=== PATIENT | male | born 1945 | race Caucasian/White ===

== ENCOUNTER 2019-01-31 12:43 | Emergency (ER) | payer MEDICARE, SELFPAY ==
[2019-01-31] MEDS: Lidocaine 2% Jelly 6 ML SYR (13:00)
[2019-01-31 13:10] VITALS: BP 177/103; PULSE 85; RESP 16; TEMP 36.6; O2SAT 94
[2019-01-31 13:19] LABS: Bilirubin Negative (Negative); Blood Small (Negative); Clarity Clear; Glucose Negative (Negative); Ketones Negative (Negative); Leukocyte Esterase Negative (Negative); Nitrite Negative (Negative); Urobilinogen 0.2 EU/dL (Up TO 0.2); pH 6.5 (5-8)
--- NOTE | 2019-01-31 13:29 | W.ED.GENAD ---
Discharge Plan Disposition Patient Disposition: AGAINST MEDICAL ADVICE Condition: Stable Discharge Details Chief Complaint: Urinary Clinical Impression: Acute urinary retention Primary Care Provider: Reginald Roca ED Provider: Misael Hayes Home Meds and New Rx's Prescriptions: No Action hydrochlorothiazide 25 mg Tablet 25 mg PO DAILY RF: 0 losartan 100 mg Tablet 100 mg PO DAILY RF: 0 Centrum Silver 400-250 mcg Tablet,Chewable 1 tab PO DAILY RF: 0 Discharge Instructions Instructions: Urinary Retention in Men (ED) Additional Instructions: Cerner you have acute urinary retention we placed a Batres here in the emergency department and drained over a liter of urine your kidney function was normal today and you had no signs of infection but unfortunately you are unable to void appropriately after we remove that Batres catheter and we recommended we replace it to protect your kidneys. New refused to have a Batres placed and promised to return should you have increasing pain or fullness this is AGAINST MEDICAL ADVICE as a obstructed bladder can damage your kidneys & cause increased or disability from infection or kidney failure. Please return to the emergency department anytime for increasing pain if you change your mind or other concern and follow-up with urology as discussed this week was a pleasure to treat you today Referrals: Iza Álvarez NP [NURSE PRACTITIONER] - Reginald Roca [Primary Care Provider] - Medical Decision Making 73-year-old male with urinary retention Batres catheter placed in the emergency department over 1 L of urine drained. Patient resting comfortably no further complaints will check UA creatinine and reassess differential diagnosis includes urinary tract infection benign prostatic hypertrophy versus less likely malignancy. Patient UA and BMP unremarkable discussed pros and cons of a voiding trial patient would like an voiding trial will remove Batres see if patient can urinate on his own if not will replace Batres either way patient to follow-up with urology this week. Patient agrees to return for pain fever chills back pain or other concern HPI 73-year-old male past medical history of hypertension tobacco use presents with 1+ weeks of increased urinary frequency at night feeling of incomplete voiding last few days constant urge to urinate and feeling like he could not get any urine out. No shortness of breath chest pain nausea vomiting diarrhea loss of consciousness weight loss or weight gain. Patient nonspecific episode many years ago where he had some trouble urinating and might of had a urinary tract infection no back pain General Date/Time Provider Initiated Documentation: 01/31/19 13:00. Related Data Home Medications Medication Instructions Recorded Confirmed hydrochlorothiazide 25 mg PO DAILY 01/31/19 01/31/19 losartan 100 mg PO DAILY 01/31/19 01/31/19 [id number] acid-lutein [Centrum 1 tab PO DAILY 01/31/19 01/31/19 Silver] Allergies Allergy/AdvReac Type Severity Reaction Status Date / Time bee stings Allergy Uncoded 01/31/19 13:14 General Stated Complaint: Urinary DILIP: 3 Review of Systems Review of Systems All systems reviewed & are unremarkable except as noted in HPI and below PFSH Social History Smoking/Tobacco Use Status: Current every day Tobacco Type: cigarettes Alcohol Intake: never Substance use type: does not use Exam Narrative Exam Narrative: Pulse oximetry reviewed by me and is normal [] Constitutional: Pt is in no acute distress. he is well appearing. he oriented to person, place, and time. Eyes: conjunctivae are normal. Pupils are equal, round, and reactive to light. No scleral icterus. extraocular muscles are intact Ears/Nose/Mouth/Throat: mucus membranes are moist. Musculoskeletal: neck is supple. normal range of motion in all extremities. Cardiovascular: Normal rate and rhythm. No lower extremity edema regular rate and [] Respiratory: effort is normal . pt exhibits no stridor or respiratory distress. Lungs clear to auscultation no wheezing rhonchi or rales. [] GastrointestinaI: abdomen soft, +BS, nontender, -rebound, -guarding. No suprapubic tender Neurological: alert and oriented to person, place, and time. he has normal strength, no tremor. Skin: Skin is warm and dry. he is not diaphoretic. Distal perfusion in tact, warm extremities, cap refill ? 2 seconds. Hem/Lymph/Imm: No cervical LAD, no goiter, no conjunctival pallor Psych: normal mood and affect. behavior is normal Triage and nurse notes reviewed.[] Course Vital Signs Temperature 36.6 C 01/31/19 13:10 Pulse 85 01/31/19 13:10 Respiratory Rate 16 01/31/19 13:10 Blood Pressure 177/103 H 01/31/19 13:10 Pulse Oximetry 94 L 01/31/19 13:10 Temperature 36.6 C 01/31/19 13:10 Pulse 85 01/31/19 13:10 Respiratory Rate 16 01/31/19 13:10 Respiratory Effort Non-Labored 01/31/19 13:10 Blood Pressure 177/103 H 01/31/19 13:10 Blood Pressure Position Sitting 01/31/19 13:10 Pulse Oximetry 94 L 01/31/19 13:10 Pain Level 5 01/31/19 13:17 Lab/Test Results Lab/Test Results: Laboratory Tests Range/Units 01/31/19 13:05 Urine Color (Yellow) Yellow Urine Clarity Clear Urine pH (5-8) 6.5 Ur Specific [place] (1.005-1.025) 1.020 Urine Protein (Negative) mg/dL 30 H Urine Ketones (Negative) mg/dL Negative Urine Blood (Negative) Small H Urine Nitrite (Negative) Negative Urine Bilirubin (Negative) Negative Urine Urobilinogen (Up TO 0.2) EU/dL 0.2 Ur Leukocyte Esterase (Negative) Negative Urine Glucose (Negative) mg/dL Negative
[2019-01-31 13:33] LABS: WBC 0-2 HPF (0-5)
[2019-01-31 13:34] LABS: Bacteria Few HPF (Negative); C & S Indicated? No; Casts Negative LPF (Negative); Crystals Negative HPF (Negative); Epithelial Cells Negative HPF (Negative); Mucus Trace (Negative); Other Cells Rare Renal (Negative); RBC 20-50 (0-2)
[2019-01-31 13:52] LABS: Anion Gap 12.1 mmol/L (3-11); BUN 13 mg/dL (7-18); CO2 24.9 mmol/L (21.0-32.0); CREATININE 1.08 mg/dL (0.70-1.30); Calcium 9.1 mg/dL (8.5-10.1); Chloride 103 mmol/L (98-107); Glucose 104 mg/dL (70-100); Potassium 3.5 mmol/L (3.5-5.1); Sodium 140 mmol/L (136-145)
--- NOTE | 2019-01-31 16:32 | NUR.NOTE ---
patient refused indwelling contreras cathteter patient aware of risks of bladder retention by and reinforced by JESSICA Cardona, patient decided to leave AMA, form signed and patient aware that he can return anytime for care. Nursing Note:
--- NOTE | 2019-02-02 08:23 | PDOC.ERCMPRO ---
Care Management Progress Note 02/01-Dr. Hayes requested assistance with an urology f/u for urinary retention/declined contreras. Referral faxed to Urology this am.
== END 2019-01-31 16:25 | disposition left against medical advice (07) ==
PROVIDERS: Emergency Provider Emergency Medicine; PCP Family Medicine
DX: R33.9 Retention of urine, unspecified (principal); Z53.29 Procedure and treatment not carried out because of patient's decision for other reasons; I10 Essential (primary) hypertension
CPT/HCPCS: 36415; 51702; 80048; 99283; 81003; 81015

== ENCOUNTER 2019-02-02 01:36 | Emergency (ER) | payer MEDICARE, SELFPAY ==
[2019-02-02 01:41] VITALS: BP 171/101; PULSE 98; RESP 20; TEMP 36; O2SAT 99
--- NOTE | 2019-02-02 01:51 | W.ED.GENAD ---
Discharge Plan Disposition Patient Disposition: HOME Discharge Details Chief Complaint: Urinary Clinical Impression: Acute urinary retention, Indwelling Contreras catheter present Primary Care Provider: Reginald Roca ED Provider: Russ Espinoza Home Meds and New Rx's Prescriptions: Continued hydrochlorothiazide 25 mg Tablet 25 mg PO DAILY RF: 0 losartan 100 mg Tablet 100 mg PO DAILY RF: 0 Centrum Silver 400-250 mcg Tablet,Chewable 1 tab PO DAILY RF: 0 Discharge Instructions Instructions: Urinary Retention in Men (ED), Contreras Catheter Placement and Care (ED) Additional Instructions: Please follow-up with urology. Additional diagnostic testing and treatment is necessary. Please contact your primary care physician to arrange follow-up. Return to the ER for any worsening or new concerning symptoms. Referrals: Doron Hope MD [ [facility] STAFF PHYSICIAN] - Reginald Roca [Primary Care Provider] - Medical Decision Making 1:55 --73-year-old male presents for recurrent urinary retention after being seen here 2 days ago for same. Patient did have recent dysuria. Will repeat creatinine to assess for SONAM. Will check UA for infection. Post void residual 999ml. Will place contreras catheter. -- Labs reviewed. Cr normal. Initial precath UA contaminated. Will repeat UA on cath specimen. -- UA with 0-2 WBCs. I do not suspect UTI. Suspect prostate enlargement. Patient will need timely outpatient follow-up with urology. Nursing provided instruction on contreras catheter care. Usual and customary discharge instructions provided. HPI General Mode of arrival: ambulatory. Date/Time Provider Initiated Documentation: 02/02/19 01:40. Limitations to Documentation: no limitations. Information obtained by: patient. HPI Narrative: 73-year-old male presents with chief complaint of urinary retention. Patient notes that over the past 1 month he has had decreasing stream and more recently inability to urinate other than a tiny amount. Patient was seen here in the emergency department on 01/31/2019. He was found to have significant urinary retention and a Contreras catheter was placed. About 1 L of urine was drained. Urinalysis and creatinine were noted to be unremarkable. Contreras catheter was removed and a voiding trial was attempted. Unfortunately the patient was not able to void but desired discharge and refused replacement of catheter. He notes that yesterday he was able to urinate a small amount. Initially had some bloody urination post catheter but this resolved. Today urinary retention is again severe. Patient is here specifically requesting Contreras catheter placement. Related Data Home Medications Medication Instructions Recorded Confirmed Centrum Silver 1 tab PO DAILY 01/31/19 02/02/19 hydrochlorothiazide 25 mg PO DAILY 01/31/19 02/02/19 losartan 100 mg PO DAILY 01/31/19 02/02/19 Allergies Allergy/AdvReac Type Severity Reaction Status Date / Time bee stings Allergy Uncoded 02/02/19 01:41 General Stated Complaint: Urinary DILIP: 3 Review of Systems Constitutional Denies fever(s) Gastrointestinal Denies abdominal pain Genitourinary Reports as per HPI [facility] Medical History BPH (benign prostatic hyperplasia) (Chronic) Hypertension (Chronic) Family History Other Hypertension Social History Smoking/Tobacco Use Status: Current every day Tobacco Type: cigarettes Alcohol Intake: never Substance use type: does not use Do you feel safe at home: Yes Do you feel safe in your relationship?: Yes Exam Const General: cooperative and no acute distress HENMT Mouth: moist mucous membranes Eyes Conjunctivae: normal conjunctivae Sclera: normal sclerae Neck Neck: trachea midline and supple Resp Auscultation: clear to auscultation bilaterally, no rales, no rhonchi and no wheezes Cardio Jugular venous pressure: no JVD Rate: regular rate and not tachycardic Rhythm: regular rhythm GI Inspection: other (suprapubic fullness) Palpation: soft, not firm, no guarding, no masses, not rigid, nontender and No ascites General: No CVA tenderness Penis: normal penis Scrotum: scrotum normal Skin General skin exam: no rashes or lesions noted Neuro General: alert, awake and tone normal Extrem General: no edema Course Vital Signs Temperature 36.0 C L 02/02/19 01:41 Pulse 98 H 02/02/19 01:41 Respiratory Rate 02/02/19 01:41 Blood Pressure 171/101 H 02/02/19 01:41 Pulse Oximetry 99 02/02/19 01:41 Temperature 36.0 C L 02/02/19 01:41 Temperature Source Temporal Artery Scan 02/02/19 01:41 Pulse 98 H 02/02/19 01:41 Respiratory Rate 20 02/02/19 01:41 Respiratory Effort 02/02/19 01:41 Blood Pressure 171/101 H 02/02/19 01:41 Blood Pressure Position Sitting 02/02/19 01:41 Pulse Oximetry 99 02/02/19 01:41 Oxygen Delivery Method Room Air 02/02/19 01:41 Oxygen Flow Rate 0 02/02/19 01:41
[2019-02-02] MEDS: Lidocaine 2% Jelly 11 ML SYR (02:00)
--- NOTE | 2019-02-02 02:00 | ED.GENADUL_ITS ---
Discharge Plan Disposition Patient Disposition: HOME Discharge Details Chief Complaint: Urinary Clinical Impression: Acute urinary retention, Indwelling Contreras catheter present Primary Care Provider: Reginald Roca ED Provider: Russ Espinoza Home Meds and New Rx's Prescriptions: Continued hydrochlorothiazide 25 mg Tablet 25 mg PO DAILY RF: 0 losartan 100 mg Tablet 100 mg PO DAILY RF: 0 Centrum Silver 400-250 mcg Tablet,Chewable 1 tab PO DAILY RF: 0 Discharge Instructions Instructions: Urinary Retention in Men (ED), Contreras Catheter Placement and Care (ED) Additional Instructions: Please follow-up with urology. Additional diagnostic testing and treatment is necessary. Please contact your primary care physician to arrange follow-up. Return to the ER for any worsening or new concerning symptoms. Referrals: Doron Hope MD [ [facility] STAFF PHYSICIAN] - Reginald Roca [Primary Care Provider] - Medical Decision Making 1:55 --73-year-old male presents for recurrent urinary retention after being seen here 2 days ago for same. Patient did have recent dysuria. Will repeat creatinine to assess for SONAM. Will check UA for infection. Post void residual 999ml. Will place contreras catheter. -- Labs reviewed. Cr normal. Initial precath UA contaminated. Will repeat UA on cath specimen. -- UA with 0-2 WBCs. I do not suspect UTI. Suspect prostate enlargement. Patient will need timely outpatient follow-up with urology. Nursing provided instruction on contreras catheter care. Usual and customary discharge instructions provided. HPI General Mode of arrival: ambulatory . Date/Time Provider Initiated Documentation: 02/02/19 01:40 . Limitations to Documentation: no limitations . Information obtained by: patient . HPI Narrative: 73-year-old male presents with chief complaint of urinary retention. Patient notes that over the past 1 month he has had decreasing stream and more recently inability to urinate other than a tiny amount. Patient was seen here in the emergency department on 01/31/2019. He was found to have significant urinary retention and a Contreras catheter was placed. About 1 L of urine was drained. Urinalysis and creatinine were noted to be unremarkable. Contreras catheter was removed and a voiding trial was attempted. Unfortunately the patient was not able to void but desired discharge and refused replacement of catheter. He notes that yesterday he was able to urinate a small amount. Initially had some bloody urination post catheter but this resolved. Today urinary retention is again severe. Patient is here specifically requesting Contreras catheter placement. Related Data Home Medications Medication Instructions Recorded Confirmed Centrum Silver 1 tab PO DAILY 01/31/19 02/02/19 hydrochlorothiazide 25 mg PO DAILY 01/31/19 02/02/19 losartan 100 mg PO DAILY 01/31/19 02/02/19 Allergies Allergy/AdvReac Type Severity Reaction Status Date / Time bee stings Allergy Uncoded 02/02/19 01:41 General Stated Complaint: Urinary DILIP: 3 Review of Systems Constitutional Denies fever(s) Gastrointestinal Denies abdominal pain Genitourinary Reports as per HPI [facility] Medical History BPH (benign prostatic hyperplasia) (Chronic) Hypertension (Chronic) Family History Other Hypertension Social History Smoking/Tobacco Use Status: Current every day Tobacco Type: cigarettes Alcohol Intake: never Substance use type: does not use Do you feel safe at home: Yes Do you feel safe in your relationship?: Yes Exam Const General: cooperative and no acute distress HENMT Mouth: moist mucous membranes Eyes Conjunctivae: normal conjunctivae Sclera: normal sclerae Neck Neck: trachea midline and supple Resp Auscultation: clear to auscultation bilaterally, no rales, no rhonchi and no wheezes Cardio Jugular venous pressure: no JVD Rate: regular rate and not tachycardic Rhythm: regular rhythm GI Inspection: other (suprapubic fullness) Palpation: soft, not firm, no guarding, no masses, not rigid, nontender and No ascites General: No CVA tenderness Penis: normal penis Scrotum: scrotum normal Skin General skin exam: no rashes or lesions noted Neuro General: alert, awake and tone normal Extrem General: no edema Course Vital Signs Temperature 36.0 C L 02/02/19 01:41 Pulse 98 H 02/02/19 01:41 Respiratory Rate 02/02/19 01:41 Blood Pressure 171/101 H 02/02/19 01:41 Pulse Oximetry 99 02/02/19 01:41 Temperature 36.0 C L 02/02/19 01:41 Temperature Source Temporal Artery Scan 02/02/19 01:41 Pulse 98 H 02/02/19 01:41 Respiratory Rate 20 02/02/19 01:41 Respiratory Effort 02/02/19 01:41 Blood Pressure 171/101 H 02/02/19 01:41 Blood Pressure Position Sitting 02/02/19 01:41 Pulse Oximetry 99 02/02/19 01:41 Oxygen Delivery Method Room Air 02/02/19 01:41 Oxygen Flow Rate 0 02/02/19 01:41
[2019-02-02 02:01] LABS: Bilirubin Negative (Negative); Blood Moderate (Negative); Clarity Clear; Glucose Negative (Negative); Ketones Negative (Negative); Leukocyte Esterase Trace (Negative); Nitrite Negative (Negative); Specific Gravity 1.025 (1.005-1.025); Urobilinogen 0.2 EU/dL (Up TO 0.2); pH 5.5 (5-8)
[2019-02-02 02:10] LABS: Bacteria Few HPF (Negative); C & S Indicated? No/Sq. Contamination; Casts Negative LPF (Negative); Crystals Negative HPF (Negative); Epithelial Cells Many HPF (Negative); Mucus Negative (Negative); RBC 20-50 (0-2)
[2019-02-02 02:16] LABS: Anion Gap 11.8 mmol/L (3-11); BUN 22 mg/dL (7-18); CO2 25.2 mmol/L (21.0-32.0); CREATININE 1.19 mg/dL (0.70-1.30); Calcium 9.2 mg/dL (8.5-10.1); Chloride 103 mmol/L (98-107); Glucose 111 mg/dL (70-100); Potassium 3.7 mmol/L (3.5-5.1); Sodium 140 mmol/L (136-145)
[2019-02-02 02:36] LABS: Bilirubin Negative (Negative); Blood Large (Negative); Clarity Clear; Glucose Negative (Negative); Ketones Trace mg/dL (Negative); Leukocyte Esterase Negative (Negative); Nitrite Negative (Negative); Urobilinogen 0.2 EU/dL (Up TO 0.2); pH 5.5 (5-8)
[2019-02-02 02:45] LABS: Bacteria Few HPF (Negative); C & S Indicated? No; Casts Negative LPF (Negative); Crystals Negative HPF (Negative); Epithelial Cells Few HPF (Negative); Mucus Negative (Negative); RBC >50 (0-2); WBC 0-2 HPF (0-5)
[2019-02-02 02:55] VITALS: BP 137/93; PULSE 80; RESP 18; TEMP 36.8; O2SAT 98
--- NOTE | 2019-02-02 08:16 | PDOC.ERCMPRO ---
Care Management Progress Note 02/02-Dr. Espinoza requested assistance with an urology appt within one week for urinary retention/sent home with contreras in place. Referral faxed to urology this am.
== END 2019-02-02 02:57 | disposition home or self-care (01) ==
LOC: ER 02:10
PROVIDERS: Emergency Provider Student in an Organized Health Care Education/Training Program; PCP Family Medicine
DX: R33.8 Other retention of urine (principal); N40.1 Benign prostatic hyperplasia with lower urinary tract symptoms; Z96.0 Presence of urogenital implants; I10 Essential (primary) hypertension
CPT/HCPCS: 36415; 51702; 80048; 99283; 81003; 81015

== ENCOUNTER 2019-02-13 09:16 | Emergency (ER) | payer MEDICARE, SELFPAY ==
[2019-02-13 09:49] VITALS: BP 182/123; PULSE 94; RESP 20; TEMP 36.7; O2SAT 98
[2019-02-13 10:29] LABS: Bilirubin Negative (Negative); Blood Large (Negative); Clarity Clear; Glucose Negative (Negative); Ketones Negative (Negative); Leukocyte Esterase Moderate (Negative); Nitrite Positive (Negative); Urobilinogen 0.2 EU/dL (Up TO 0.2)
--- NOTE | 2019-02-13 10:40 | ED.GENADUL_ITS ---
Discharge Plan Disposition Patient Disposition: HOME Condition: Good Discharge Details Chief Complaint: Urinary Clinical Impression: Acute UTI, Chronic indwelling Batres catheter Primary Care Provider: Reginald Roca ED Provider: Joseluis Lam Home Meds and New Rx's Prescriptions: New cephalexin [Keflex] 500 mg capsule 500 mg PO QID 7 Days Qty: 28 RF: 0 No Action hydrochlorothiazide 25 mg Tablet 25 mg PO DAILY RF: 0 losartan 100 mg Tablet 100 mg PO DAILY RF: 0 Centrum Silver 400-250 mcg Tablet,Chewable 1 tab PO DAILY RF: 0 Discharge Instructions Instructions: Urinary Tract Infection in Men (ED) Additional Instructions: Please take the antibiotic as directed. Please follow-up immediately with Dr. Hope of urology. If you notice any worsening of your symptoms, or any new symptoms such as vomiting, diarrhea, fever, chills, shortness of breath, chest pain, numbness, weakness, or fainting , please return immediately to the emergency department for reevaluation. Please follow up with your primary care provider as soon as possible for reassessment and reevaluation. As always, it was a pleasure participating in your medical care today. Referrals: Reginald Roca [Primary Care Provider] - Medical Decision Making This is a 73-year-old male who presents today for evaluation of brief hematuria. He had a Batres catheter placed for urinary retention and prostate hypertrophy 1 week ago here in the ED. His appointment with Dr. Hope is upcoming. This morning he woke up and noticed blood in his Batres bag. He denies any pain whatsoever. No flank abdominal or pelvic pain. No fever or tachycardia. Otherwise benign exam. Currently there is no blood in his Batres bag whatsoever. We will evaluate for microscopic hematuria versus infection. If there is evidence of infection we will treat. Vital signs are otherwise benign, no clinical evidence of pyelonephritis or clinical urolithiasis. No indication for emergent imaging at this time. 11:05 AM Urinalysis shows evidence of clinical urinary tract infection with positive nitrates, as well as moderate leukoesterase. We will give the patient a prescription for Keflex, recommend continue close follow-up with Dr. Hope. I have extensively reviewed the treatment plan and discharge instructions with the patient and their family. I have addressed all patient concerns at this time. The patient and family was made aware of what symptoms to monitor for that would warrant a return to the emergency department. Discussed the plan with the patient and family, they demonstrate verbal understanding and agreement with our assessment and plan at this time. HPI General Date/Time Provider Initiated Documentation: 02/13/19 09:28 . HPI Narrative: This is a 73-year-old male with a past medical history of enlarged prostate who presents today for evaluation of brief hematuria. Patient states that one week ago he was here for evaluation of urinary retention. Batres was placed at that time. He is on no blood thinners. Since then he has been doing very well however this morning when he woke up he noted blood in his Batres bag. He denies any pelvic urinary penile or flank pain or tenderness. He denies any abdominal pain. He denies any nausea or vomiting or diarrhea. He is not on any blood thinners. After he emptied his Batres bag he is no longer had any more hematuria and his urine has been clear and yellow. He denies any fever or chills. He states he did have a kidney stone years ago, but denies any recent stone. He states that at that time he did have some pain, and states that this is completely unlike his symptoms of being asymptomatic today. Patient denies any other complaints. He does have follow-up with urology shortly. Related Data Home Medications Medication Instructions Recorded Confirmed Centrum Silver 1 tab PO DAILY 01/31/19 02/13/19 hydrochlorothiazide 25 mg PO DAILY 01/31/19 02/13/19 losartan 100 mg PO DAILY 01/31/19 02/13/19 cephalexin [Keflex] 500 mg PO QID 7 Days #28 cap 02/13/19 Previous Rx's Medication Instructions Recorded cephalexin [Keflex] 500 mg PO QID 7 Days #28 cap 02/13/19 Allergies Allergy/AdvReac Type Severity Reaction Status Date / Time bee stings Allergy Uncoded 02/13/19 09:53 General Stated Complaint: Urinary DILIP: 3 Review of Systems Review of Systems All systems reviewed & are unremarkable except as noted in HPI and below PFSH Medical History BPH (benign prostatic hyperplasia) (Chronic) Hypertension (Chronic) Family History Other Hypertension Social History Smoking/Tobacco Use Status: Current every day Tobacco Type: cigarettes Alcohol Intake: never Substance use type: does not use Do you feel safe at home: Yes Do you feel safe in your relationship?: Yes Exam Narrative Exam Narrative: 1.Const: Well-nourished, Well-developed, appearing stated age 2.Eyes: PERRL, no conjunctival injection, and symmetrical lids. 3.ENT: Atraumatic external nose and ears. Moist MM. Neck: Symmetric, trachea midline, No thyromegaly. 4.CVS: +S1/S2, No murmurs or gallops. Peripheral pulses 2+ and equal in all extremities. Brisk capillary refill in all extremities. 5.RESP: Unlabored respiratory effort. Clear to auscultation bilaterally. No wheezes rales or rhonchi 6.GI: Soft, Nontender/Nondistended, No hepatosplenomegaly. No guarding or rebound. No flank tenderness. Batres catheter is in place, no blood. No evidence of urethral bleeding. No evidence of ulcer around the urethral meatus. No other abnormalities. No suprapubic tenderness. 7.MSK: Normocephalic/Atraumatic, Extremities w/o deformity or ttp No cyanosis or clubbing, Normal movement of all extremities 8.Skin: Warm, Dry. No rashes or lesions. 9.Neuro: printed circuit boards pinner II-XII grossly intact. Sensation grossly intact, no focal neurologic deficits. 10.Psych: (AAO) x3. Appropriate mood and affect Course Vital Signs Temperature 36.7 C 02/13/19 09:49 Pulse 94 H 02/13/19 09:49 Respiratory Rate 20 02/13/19 09:49 Blood Pressure 182/123 H 02/13/19 09:49 Pulse Oximetry 98 02/13/19 09:49 Temperature 36.7 C 02/13/19 09:49 Temperature Source Tympanic 02/13/19 09:49 Pulse 94 H 02/13/19 09:49 Respiratory Rate 20 02/13/19 09:49 Blood Pressure 182/123 H 02/13/19 09:49 Blood Pressure Position Sitting 02/13/19 09:49 Pulse Oximetry 98 02/13/19 09:49 Oxygen Delivery Method Room Air 02/13/19 09:49 Oxygen Flow Rate 0 02/13/19 09:49 Pain Level 0 02/13/19 09:49 Lab/Test Results Lab/Test Results: 02/13/19 10:14 Urine - Cath Batres Indwelling Urine Culture - Pending Laboratory Tests Range/Units 02/13/19 10:14 Urine Color (Yellow) Yellow Urine Clarity Clear Urine pH (5-8) 7.0 Ur Specific [place] (1.005-1.025) 1.010 Urine Protein (Negative) mg/dL Negative Urine Ketones (Negative) mg/dL Negative Urine Blood (Negative) Large H Urine Nitrite (Negative) Positive H Urine Bilirubin (Negative) Negative Urine Urobilinogen (Up TO 0.2) EU/dL 0.2 Ur Leukocyte Esterase (Negative) Moderate H Urine Glucose (Negative) mg/dL Negative
[2019-02-13 10:46] LABS: Bacteria Moderate HPF (Negative); Crystals Negative HPF (Negative); Epithelial Cells Negative HPF (Negative); Mucus Negative (Negative)
[2019-02-13 10:47] LABS: C & S Indicated? C&S Done As Ordered; Casts 3-5 Coarse Granular LPF (Negative)
[2019-02-13 11:26] VITALS: BP 141/84; PULSE 93; RESP 18; TEMP 37.1; O2SAT 98
== END 2019-02-13 11:31 | disposition home or self-care (01) ==
PROVIDERS: Emergency Provider Student in an Organized Health Care Education/Training Program; PCP Family Medicine
DX: N39.0 Urinary tract infection, site not specified (principal); R31.9 Hematuria, unspecified; B96.89 Other specified bacterial agents as the cause of diseases classified elsewhere; Z96.0 Presence of urogenital implants; N40.1 Benign prostatic hyperplasia with lower urinary tract symptoms; R33.8 Other retention of urine; I10 Essential (primary) hypertension
CPT/HCPCS: 99283; 81003; 81015; 87086

== ENCOUNTER → 2019-02-25 07:40 | Outpatient (BNVA) | payer MEDICARE, SELFPAY | PROVIDERS: PCP Family Medicine; Visit Provider Urology | DX: R33.9 Retention of urine, unspecified (principal); Z46.6 Encounter for fitting and adjustment of urinary device; I10 Essential (primary) hypertension | CPT/HCPCS: 51702; 99212 ==

== ENCOUNTER → 2019-03-14 07:46 | Outpatient (BNVA) | payer MEDICARE, SELFPAY | PROVIDERS: PCP Family Medicine; Visit Provider Urology | DX: R33.9 Retention of urine, unspecified (principal) | CPT/HCPCS: 51798; 99211; 99212 ==

== ENCOUNTER 2019-03-15 14:35 | Outpatient (CLI) | payer MEDICARE, SELFPAY | END 2019-03-15 14:55 | PROVIDERS: PCP Family Medicine; Visit Provider Urology | DX: R33.9 Retention of urine, unspecified (principal) | CPT/HCPCS: 87077; 87086; 87186 ==

== ENCOUNTER 2019-03-25 14:32 | Emergency (ER) | payer MEDICARE, SELFPAY ==
[2019-03-25] VITALS (67 sets, daily range): BP systolic 99–163; BP diastolic 64–115; PULSE 72–106; RESP 7–29; TEMP 36.6; O2SAT 92–98
--- NOTE | 2019-03-25 15:07 | W.ED.GENAD ---
Discharge Plan Disposition Patient Disposition: [facility] Discharge Details Chief Complaint: Chest Pain Clinical Impression: Acute non-ST elevation myocardial infarction (NSTEMI), Mass of right lung Primary Care Provider: Reginald Roca ED Provider: Russ Espinoza Home Meds and New Rx's Prescriptions: No Action tamsulosin [Flomax] 0.4 mg capsule 0.8 mg PO DAILY Qty: 60 RF: 2 hydrochlorothiazide 25 mg Tablet 25 mg PO DAILY RF: 0 losartan 100 mg Tablet 100 mg PO DAILY RF: 0 Centrum Silver 400-250 mcg Tablet,Chewable 1 tab PO DAILY RF: 0 Discharge Data Discharge Date/Time-TO BE ENTERED AT DEPARTURE: 03/26/19 02:14 Medical Decision Making 1510 --73-year-old male smoker with history of hypertension here with chest tightness that lasted approximately 20 minutes and is now completely resolved. Patient is currently pain-free. Consider ACS. ECG reviewed and interpreted by me: Sinus rhythm 84 bpm, left axis deviation, [address] elevation noted in V2 and less than [address] elevation noted in V1. No old ECG for comparison. Plan to obtain troponin. 8 --initial labs reviewed and nondiagnostic. Chest x-ray interpreted by radiology: 5.8 cm posterior segment right upper lobe mass most consistent with lung cancer. Hyperaerated lungs consistent with mild to moderate COPD. Plan to obtain CT of the chest to rule out pulmonary embolism and better evaluate lung mass. I reviewed results with the patient and discussed treatment plan. Patient refusing CT of the chest at this time. I explained to the patient that he may have life-threatening her lifestyle modifying disease including pulmonary embolism that would go undiagnosed and untreated should we not pursue CT emergently at this time. Patient verbalized understanding of my concern and understanding of risks and notes that he would prefer to not pursue additional diagnostics. Patient has decisional making capacity to refuse care. He is agreeable to staying for delta troponin. 19:05 --delta troponin at 3 hours 1.58. Repeat ECG was reviewed and interpreted by me: Sinus rhythm 80 bpm, continues to have [address] elevation in V2, peaked T waves laterally V3V5 that are slightly more pronounced than prior EKG per Patient reassessed: He continues to have no chest pain. No shortness of breath. Saturating well with no respiratory distress. Results discussed with patient. He is agreeable to hospitalization. Plan to give heparin bolus and drip. Plan to give full dose aspirin and Plavix 300mg. I called [facility] her to return to request transfer to cardiology. Awaiting callback from physician. -- Called [facility] again to request transfer. Still awaiting physician callback. 20:02 -- Spoke with physician at [facility] - unable to accept tonight. 20:22 -- Spoke with Dr. Bray at [facility] -I discussed ED presentation and course including diagnostic treatment results, he will accept patient in transfer. Lab Data Laboratory Tests Range/Units 03/25/19 03/25/19 03/25/19 15:10 15:10 18:00 WBC (4.4-10.8) k/cumm 10.02 RBC (4.50-6.00) m/cumm 4.66 Hgb (13.5-17.5) g/dL 14.5 Hct (40.0-50.0) % 43.1 MCV (80-95) fL 92.5 MCH (27.0-33.0) pg 31.1 MCHC (32.0-36.0) g/dL 33.6 RDW (11.8-14.1) % 14.9 H Plt Count (130-400) x1000/uL 273 MPV (8.0-11.0) fL 10.4 Immature Gran % 0.2 Neutrophils % 64.8 Lymphocytes % 23.6 Monocytes % 6.1 Eosinophils % 4.9 Basophils % 0.4 Absolute Neutrophils (1.2-6.7) k/cumm 6.50 Absolute Lymphocytes (1.2-3.4) k/cumm 2.36 Absolute Monocytes (0.11-0.7) k/cumm 0.61 Absolute Eosinophils (0.0-0.7) k/cumm 0.49 Absolute Basophils (0.0-0.2) k/cumm 0.04 Sodium (136-145) mmol/L 135 L Potassium (3.5-5.1) mmol/L 4.2 Chloride (98-107) mmol/L 101 Carbon Dioxide (21.0-32.0) mmol/L 25.5 Anion Gap (3-11) mmol/L 8.5 BUN (7-18) mg/dL 11 Creatinine (0.70-1.30) mg/dL 1.04 Estimated GFR/1.73 m2 (mL/min/1.73m2) >= 60.00 Glucose (70-100) mg/dL 99 Calcium (8.5-10.1) mg/dL 8.8 Magnesium (1.8-2.4) mg/dL 1.9 Total Bilirubin (0.2-1.0) mg/dL 0.5 AST (15-37) U/L 27 ALT (12-78) U/L 22 Alkaline Phosphatase (46-116) U/L 38 L Troponin I (0.00-0.06) ng/mL < 0.05 1.58 H* Total Protein (6.4-8.2) g/dL 7.8 Albumin (3.4-5.0) g/dL 3.6 HPI General Mode of arrival: ambulatory. Date/Time Provider Initiated Documentation: 03/25/19 14:58. Limitations to Documentation: no limitations. Information obtained by: patient. HPI Narrative: 73-year-old male with history of hypertension here with chief complaint of chest discomfort. Patient notes that around 1:30p he came in from doing light yard work outside and experienced central anterior chest tightness. Tightness was mild to moderate and lasted approximately 20 minutes. No modifiers. No associated diaphoresis or nausea. No shortness of breath. No recent calf pain or lower extremity edema. No prolonged travel or immobility recently. Related Data Home Medications Medication Instructions Recorded Confirmed Centrum Silver 1 tab PO DAILY 01/31/19 03/25/19 hydrochlorothiazide 25 mg PO DAILY 01/31/19 03/25/19 losartan 100 mg PO DAILY 01/31/19 03/25/19 tamsulosin 0.4 mg capsule 0.8 mg PO DAILY #60 cap 02/25/19 03/25/19 Previous Rx's Medication Instructions Recorded tamsulosin 0.4 mg capsule 0.8 mg PO DAILY #60 cap 02/25/19 Allergies Allergy/AdvReac Type Severity Reaction Status Date / Time bee stings Allergy Uncoded 03/25/19 14:53 General Stated Complaint: Chest Pain DILIP: 3 Review of Systems Review of Systems All systems reviewed & are unremarkable except as noted in HPI and below Constitutional Denies body ache(s) Cardiovascular Reports chest pain, Denies chest pain with activity, Denies diaphoresis, Denies syncope, Denies rapid heart rate, Denies leg edema, Denies lightheadedness, Denies radiating jaw, neck or arm pain, Denies palpitations, Denies dyspnea and Denies dyspnea on exertion Respiratory Denies dyspnea and Denies dyspnea on exertion Gastrointestinal Denies abdominal pain Neurologic Denies syncope Endocrine Denies palpitations [facility] Medical History BPH (benign prostatic hyperplasia) (Chronic) Hypertension (Chronic) Family History Other Hypertension Social History Smoking/Tobacco Use Status: Current every day Tobacco Type: cigarettes Alcohol Intake: never Substance use type: does not use Do you feel safe at home: Yes Do you feel safe in your relationship?: Yes Exam Const General: cooperative and no acute distress HENMT Head: normocephalic Mouth: moist mucous membranes Eyes Conjunctivae: normal conjunctivae Sclera: normal sclerae EOM: EOM intact bilaterally Neck Neck: trachea midline and supple Resp Auscultation: clear to auscultation bilaterally, no rales, no rhonchi and no wheezes Cardio Jugular venous pressure: no JVD Rate: regular rate and not tachycardic Rhythm: regular rhythm GI Palpation: soft, not firm, no guarding, no masses, not rigid and nontender Skin General skin exam: no rashes or lesions noted Neuro General: alert, awake and tone normal Extrem General: no calf tenderness and no edema Psych Appearance: grossly normal Mental Status: mental status grossly normal Course Vital Signs Temperature 36.6 C 03/25/19 14:47 Pulse 85 03/25/19 14:47 Respiratory Rate 16 03/25/19 14:47 Pulse Oximetry 98 03/25/19 14:47 Temperature 36.6 C 03/25/19 14:47 Temperature Source Skin 03/25/19 14:47 Pulse 85 03/25/19 14:47 Respiratory Rate 16 03/25/19 14:47 Respiratory Effort Non-Labored 03/25/19 14:51 Blood Pressure Position Sitting 03/25/19 14:47 Pulse Oximetry 98 03/25/19 14:47 Oxygen Delivery Method Room Air 03/25/19 14:47 Oxygen Flow Rate 0 03/25/19 14:47 Critical Care Time Critical Care Time: Yes Total Critical Care Time: 45 Attestation: I spent greater than 45 minutes addressing this patient's immediate life threats
--- NOTE | 2019-03-25 15:12 | DI.RAD_ITS ---
SYMPTOM/DIAGNOSIS: CHEST PAIN PA AND LATERAL CHEST: No previous films available for comparison. The heart is not enlarged. There are diffuse pulmonary interstitial radiodensities which may be acute or chronic. There is a rounded radiodensity lying posteriorly in the right upper lung, the findings are suggestive of a pleural based mass, suspicious for lung carcinoma. No additional intrapulmonary mass seen. Small nodule projected over right lower lung field is most likely to represent nipple shadow but could be intrapulmonary. Question abnormal contour of aortopulmonary window. The possibility of superior mediastinal adenopathy is raised. No pleural effusion is seen. CONCLUSION: Findings suspicious for lung carcinoma, probably right upper lobe. Other etiologies including infectious process not excluded. Chest CT requested to evaluate the mass-like radiodensity and abnormal mediastinal contour.
[2019-03-25 15:26] LABS: Abs Immature Grans 0.02 k/cumm (0.0-0.09); Absolute Basophil Count 0.04 k/cumm (0.0-0.2); Absolute Eosinophil Count 0.49 k/cumm (0.0-0.7); Absolute Lymphocyte Count 2.36 k/cumm (1.2-3.4); Absolute Monocyte Count 0.61 k/cumm (0.11-0.7); Basophils % 0.4; Eosinophils % 4.9; HCT 43.1 % (40.0-50.0); HGB 14.5 g/dL (13.5-17.5); Immature Grans % 0.2; Lymphocytes % 23.6; Mean Corp. HGB Concentration 33.6 g/dL (32.0-36.0); Mean Corpuscular Hemoglobin 31.1 pg (27.0-33.0); Mean Corpuscular Volume 92.5 fL (80-95); Mean Platelet Volume 10.4 fL (8.0-11.0); Monocytes % 6.1; Neutrophils % 64.8; Platelet Count 273 x1000/uL (130-400); RBC 4.66 m/cumm (4.50-6.00); RBC Distribution Width 14.9 % (11.8-14.1); White Blood Cell Count 10.02 k/cumm (4.4-10.8)
[2019-03-25 15:41] LABS: ALT 22 U/L (12-78); AST 27 U/L (15-37); Albumin 3.6 g/dL (3.4-5.0); Alkaline Phosphatase 38 U/L (46-116); BUN 11 mg/dL (7-18); Bilirubin, Total 0.5 mg/dL (0.2-1.0); CO2 25.5 mmol/L (21.0-32.0); CREATININE 1.04 mg/dL (0.70-1.30); Calcium 8.8 mg/dL (8.5-10.1); Glucose 99 mg/dL (70-100); Magnesium 1.9 mg/dL (1.8-2.4); Total Protein 7.8 g/dL (6.4-8.2)
[2019-03-25 15:42] LABS: Troponin I < 0.05 ng/mL (0.00-0.06)
[2019-03-25 16:03] LABS: Anion Gap 8.5 mmol/L (3-11); Chloride 101 mmol/L (98-107); Potassium 4.2 mmol/L (3.5-5.1); Sodium 135 mmol/L (136-145)
--- NOTE | 2019-03-25 16:25 | DI.VRAD_ITS ---
EXAM: XR Chest, 2 Views EXAM DATE/TIME: 03/25/2019 3:13 PM CLINICAL HISTORY: 73 years old, male; Chest pain and chest pressure; Type not specified; Patient HX: Chest pain; Per PT: Outside working, felt tightness in chest and down left arm TECHNIQUE: Imaging protocol: XR of the chest, 2 views. COMPARISON: No relevant prior studies available. FINDINGS: Lungs: 5.8 cm posterior segment right upper lobe mass most consistent with lung cancer. Hyperaerated lungs consistent with mild to moderate COPD . Pleural space: Unremarkable. No pleural effusion. No pneumothorax. Heart/Mediastinum: Unremarkable. No cardiomegaly. Bones/joints: Mild thoracic spondylosis. IMPRESSION: 1. 5.8 cm posterior segment right upper lobe mass most consistent with lung cancer. 2. Hyperaerated lungs consistent with mild to moderate COPD . Dictated and Authenticated by: Rick Caba MD. Ordering:CHRISTINE Solano MD
[2019-03-25 18:58] LABS: Troponin I 1.58 ng/mL (0.00-0.06)
[2019-03-25] MEDS: Aspirin 325 MG TAB PO (19:43)
[2019-03-25] MEDS: Clopidogrel 75 MG TAB PO (19:43)
[2019-03-25] MEDS: Clopidogrel 75 MG TAB 225 MG PO (20:24)
--- NOTE | 2019-03-25 20:59 | NUR.NOTE ---
Nursing Note: patient remain pain free, resting quietly, vital sign stable, NSR on speech lang path, IVF infusing without difficulty.
[2019-03-25 21:02] LABS: Prothrombin Time 10.3 sec (9.3-11.0)
[2019-03-25 21:15] LABS: PTT Activated 87.7 sec (21.0-31.4)
--- NOTE | 2019-03-28 19:11 | NUR.NOTE ---
Nursing Note: Referral was faxed to PCP for follow up. Katie Kwon.
== END 2019-03-26 02:14 | disposition short-term general hospital (02) ==
PROVIDERS: Emergency Provider Student in an Organized Health Care Education/Training Program; PCP Family Medicine
DX: I21.4 Non-ST elevation (NSTEMI) myocardial infarction (principal)
CPT/HCPCS: 36415; 80053; 93005; 99285; 71046; 83735; 84484; 85025; 85610; 85730; 93010

== ENCOUNTER 2019-05-04 10:50 | Outpatient (CLI) | payer MEDICARE, SELFPAY ==
[2019-05-04] MEDS: Omnipaque 350 MG/ML 100 ML BTL IV (13:43)
--- NOTE | 2019-05-04 13:45 | DI.CT_ITS ---
SYMPTOMS/DIAGNOSIS: METASTATIC CARCINOMA, C80.1, LYMPHADENOPATHY, R59.1 CT OF THE NECK: No prior exams are available for comparison. There are innumerable bulky lymph nodes in both supraclavicular regions, measuring on the order of 2 cm in diameter. Numerous lymph nodes are seen in the mediastinum. A mass is partially included in the left upper lobe. There are two mildly enlarged lymph nodes seen bilaterally in the high internal jugular region measurig 1.2cm in greatest dimension. There are a few lymph nodes in the posterior cervical chain measuring less than 5 mm in size. Calcifications are seen at the common carotid bulb. There is no significant stenosis. The parotid, submandibular and thyroid glands are unremarkable. Degenerative changes are seen in the spine. The visualized portions of the sinuses and mastoid air cells appear clear. IMPRESSION: Multiple enlarged bilateral supraclavicular lymph nodes. There are two lymph nodes seen bilaterally in the high internal jugular location measuring 1.2 cm.
== END 2019-05-04 11:10 ==
PROVIDERS: PCP Family Medicine; Visit Provider Family Medicine
DX: R59.1 Generalized enlarged lymph nodes (principal)
CPT/HCPCS: 70491; J3490

== ENCOUNTER → 2019-06-09 13:33 | Outpatient (BNVA) | payer MEDICARE, SELFPAY | PROVIDERS: PCP Family Medicine; Visit Provider Internal Medicine Cardiovascular Disease | DX: I25.10 Atherosclerotic heart disease of native coronary artery without angina pectoris (principal); I10 Essential (primary) hypertension; E78.5 Hyperlipidemia, unspecified; J44.9 Chronic obstructive pulmonary disease, unspecified; F17.210 Nicotine dependence, cigarettes, uncomplicated | CPT/HCPCS: 99204; 99215 ==

== ENCOUNTER 2019-07-15 07:53 | Outpatient (CLI) | payer MEDICARE, SELFPAY ==
[2019-07-15] MEDS: Normal Saline Flush 10 ML SYR IVP (12:35)
[2019-07-15] MEDS: Gadoterate meglumine 20 ML VIAL 19 ML IVP (12:37)
--- NOTE | 2019-07-15 12:45 | DI.MRI_ITS ---
EXAM: MR BRAIN WO/W CLINICAL HISTORY: SMALL CELL LUNG CA, C34.90, ? BRAIN METS, STAGING EXAM. TECHNIQUE: Multiplanar multisequence MRI was performed. COMPARISON: No exams were available for comparison FINDINGS: MR examination of the brain was performed according to the usual protocol with additional post contra st axial and coronal T1 weighted imaging. There is moderate generalized cerebral atrophy. There are areas of abnormal signal in periventricular white matter and subcortical white matter bilaterally co nsistent with microvascular ischemic changes. There appear to be a few tiny lacunar infarcts in the basal ganglia on the right. No other signal abnormality identified in the brain. Diffusion-weighted imaging is within normal limits. Susceptibility weighted imaging shows no evidence of hemorrhage. The orbital and temporal bone structures appear intact as does the pituitary. There is normal flow v oid in the [id number] vasculature. Post contrast examination shows no mass lesion or enhancing lesion. IMPRESSION: No evidence of acute intracranial process. No evidence of metastatic disease.
== END 2019-07-15 08:13 ==
PROVIDERS: PCP Family Medicine; Visit Provider Nurse Practitioner Adult Health
DX: C34.90 Malignant neoplasm of unspecified part of unspecified bronchus or lung (principal); G31.89 Other specified degenerative diseases of nervous system
CPT/HCPCS: 70553

== ENCOUNTER 2019-08-02 12:20 | Outpatient (CLI) | payer MEDICARE, SELFPAY ==
[2019-08-02 13:21] LABS: Abs Immature Grans 0.16 k/cumm (0.0-0.09); HCT 34.7 % (40.0-50.0); HGB 11.9 g/dL (13.5-17.5); Mean Corp. HGB Concentration 34.3 g/dL (32.0-36.0); Mean Corpuscular Hemoglobin 32.5 pg (27.0-33.0); Mean Corpuscular Volume 94.8 fL (80-95); Mean Platelet Volume 9.2 fL (8.0-11.0); Platelet Count 378 x1000/uL (130-400); RBC 3.66 m/cumm (4.50-6.00); RBC Distribution Width 12.7 % (11.8-14.1); White Blood Cell Count 3.44 k/cumm (4.4-10.8)
[2019-08-02 13:30] LABS: ALT 31 U/L (16-63); Albumin 3.8 g/dL (3.4-5.0); Alkaline Phosphatase 41 U/L (46-116); BUN 15 mg/dL (7-18); Bilirubin, Total 0.4 mg/dL (0.2-1.0); CREATININE 1.13 mg/dL (0.70-1.30); Chloride 103 mmol/L (98-107); FREE T4 0.78 ng/dL (0.76-1.46); Glucose 103 mg/dL (70-100); LDH 149 U/L (85-227); Sodium 140 mmol/L (136-145); Total Protein 7.5 g/dL (6.4-8.2)
[2019-08-02 13:45] LABS: Absolute Basophil Count 0.03 k/cumm (0.0-0.2); Absolute Lymphocyte Count 1.93 k/cumm (1.2-3.4); Absolute Monocyte Count 0.52 k/cumm (0.11-0.7); Absolute Neutrophil Count 0.83 k/cumm (1.2-6.7)
[2019-08-02 13:46] LABS: Diff Comment Manual Differential; Polychromasia Present
[2019-08-02 13:50] LABS: AST 45 U/L (15-37)
== END 2019-08-02 12:40 ==
PROVIDERS: PCP Family Medicine; Visit Provider Nurse Practitioner Adult Health
DX: Z79.899 Other long term (current) drug therapy (principal); C34.90 Malignant neoplasm of unspecified part of unspecified bronchus or lung; C79.51 Secondary malignant neoplasm of bone
CPT/HCPCS: 36415; 80053; 83615; 84439; 84443; 85025

== ENCOUNTER 2019-08-08 12:16 | Outpatient (CLI) | payer MEDICARE, SELFPAY ==
[2019-08-08 12:44] LABS: Abs Immature Grans 0.16 k/cumm (0.0-0.09); Absolute Basophil Count 0.05 k/cumm (0.0-0.2); Absolute Eosinophil Count 0.05 k/cumm (0.0-0.7); Absolute Lymphocyte Count 2.14 k/cumm (1.2-3.4); Absolute Monocyte Count 0.79 k/cumm (0.11-0.7); Absolute Neutrophil Count 5.66 k/cumm (1.2-6.7); Basophils % 0.6; Eosinophils % 0.6; HCT 35.6 % (40.0-50.0); HGB 12.2 g/dL (13.5-17.5); Immature Grans % 1.8; Lymphocytes % 24.2; Mean Corp. HGB Concentration 34.3 g/dL (32.0-36.0); Mean Corpuscular Hemoglobin 32.6 pg (27.0-33.0); Mean Corpuscular Volume 95.2 fL (80-95); Monocytes % 8.9; Neutrophils % 63.9; Platelet Count 348 x1000/uL (130-400); RBC 3.74 m/cumm (4.50-6.00); RBC Distribution Width 13.2 % (11.8-14.1); White Blood Cell Count 8.85 k/cumm (4.4-10.8)
[2019-08-08 13:04] LABS: ALT 30 U/L (16-63); AST 20 U/L (15-37); Albumin 3.8 g/dL (3.4-5.0); Alkaline Phosphatase 44 U/L (46-116); Anion Gap 6.5 mmol/L (3-11); BUN 15 mg/dL (7-18); Bilirubin, Total 0.4 mg/dL (0.2-1.0); CO2 29.5 mmol/L (21.0-32.0); CREATININE 1.11 mg/dL (0.70-1.30); Chloride 104 mmol/L (98-107); FREE T4 0.82 ng/dL (0.76-1.46); Glucose 106 mg/dL (70-100); LDH 150 U/L (85-227); Potassium 3.9 mmol/L (3.5-5.1); Sodium 140 mmol/L (136-145); TSH 4.57 uIU/mL (0.36-3.74)
== END 2019-08-08 12:36 ==
PROVIDERS: PCP Family Medicine; Visit Provider Nurse Practitioner Adult Health
DX: C34.90 Malignant neoplasm of unspecified part of unspecified bronchus or lung (principal); C79.51 Secondary malignant neoplasm of bone
CPT/HCPCS: 36415; 80053; 83615; 84439; 84443; 85025

== ENCOUNTER 2019-09-05 01:59 | Outpatient (CLI) | payer MEDICARE, SELFPAY ==
[2019-09-05 09:26] LABS: Abs Immature Grans 0.23 k/cumm (0.0-0.09); Absolute Basophil Count 0.05 k/cumm (0.0-0.2); Absolute Eosinophil Count 0.12 k/cumm (0.0-0.7); Absolute Lymphocyte Count 1.92 k/cumm (1.2-3.4); Absolute Neutrophil Count 4.69 k/cumm (1.2-6.7); Basophils % 0.6; Eosinophils % 1.5; HCT 34.2 % (40.0-50.0); HGB 11.6 g/dL (13.5-17.5); Immature Grans % 2.9; Lymphocytes % 24.6; Mean Corp. HGB Concentration 33.9 g/dL (32.0-36.0); Mean Corpuscular Volume 97.4 fL (80-95); Mean Platelet Volume 9.5 fL (8.0-11.0); Monocytes % 10.2; Neutrophils % 60.2; Platelet Count 330 x1000/uL (130-400); RBC 3.51 m/cumm (4.50-6.00); RBC Distribution Width 14.6 % (11.8-14.1); White Blood Cell Count 7.81 k/cumm (4.4-10.8)
[2019-09-05 10:19] LABS: ALT 52 U/L (16-63); AST 39 U/L (15-37); Albumin 3.7 g/dL (3.4-5.0); Alkaline Phosphatase 46 U/L (46-116); BUN 19 mg/dL (7-18); Bilirubin, Total 0.7 mg/dL (0.2-1.0); CREATININE 1.23 mg/dL (0.70-1.30); Calcium 8.8 mg/dL (8.5-10.1); Chloride 105 mmol/L (98-107); Estimated GFR 57.68 (mL/min/1.73m2); FREE T4 0.88 ng/dL (0.76-1.46); Glucose 83 mg/dL (74-106); LDH 176 U/L (85-227); Potassium 3.9 mmol/L (3.5-5.1); Sodium 144 mmol/L (136-145); TSH 4.55 uIU/mL (0.36-3.74); Total Protein 7.4 g/dL (6.4-8.2)
== END 2019-09-05 02:19 ==
PROVIDERS: PCP Family Medicine; Visit Provider Nurse Practitioner Adult Health
DX: C34.90 Malignant neoplasm of unspecified part of unspecified bronchus or lung (principal); C79.51 Secondary malignant neoplasm of bone; Z79.899 Other long term (current) drug therapy
CPT/HCPCS: 36415; 80053; 83615; 84439; 84443; 85025

== ENCOUNTER 2019-09-26 02:43 | Outpatient (CLI) | payer MEDICARE, SELFPAY ==
[2019-09-26 08:45] LABS: Abs Immature Grans 0.21 k/cumm (0.0-0.09); Absolute Basophil Count 0.03 k/cumm (0.0-0.2); Absolute Lymphocyte Count 1.58 k/cumm (1.2-3.4); Absolute Monocyte Count 1.21 k/cumm (0.11-0.7); Basophils % 0.2; Eosinophils % 0.4; HCT 30.9 % (40.0-50.0); HGB 10.3 g/dL (13.5-17.5); Immature Grans % 1.5 %; Lymphocytes % 11.6; Mean Corp. HGB Concentration 33.3 g/dL (32.0-36.0); Mean Corpuscular Hemoglobin 32.8 pg (27.0-33.0); Mean Corpuscular Volume 98.4 fL (80-95); Mean Platelet Volume 9.8 fL (8.0-11.0); Monocytes % 8.9; Neutrophils % 77.4; Platelet Count 299 x1000/uL (130-400); RBC 3.14 m/cumm (4.50-6.00); RBC Distribution Width 15.2 % (11.8-14.1); White Blood Cell Count 13.63 k/cumm (4.4-10.8)
[2019-09-26 08:46] LABS: Absolute Eosinophil Count 0.05 k/cumm (0.0-0.7); Absolute Neutrophil Count 10.55 k/cumm (1.2-6.7)
[2019-09-26 09:06] LABS: ALT 38 U/L (16-63); AST 29 U/L (15-37); Albumin 3.7 g/dL (3.4-5.0); Alkaline Phosphatase 66 U/L (46-116); Anion Gap 10.4 mmol/L (3-11); BUN 12 mg/dL (7-18); Bilirubin, Total 0.7 mg/dL (0.2-1.0); CO2 28.6 mmol/L (21.0-32.0); CREATININE 1.02 mg/dL (0.70-1.30); Chloride 103 mmol/L (98-107); FREE T4 0.84 ng/dL (0.76-1.46); Glucose 118 mg/dL (74-106); LDH 197 U/L (85-227); Potassium 3.7 mmol/L (3.5-5.1); Sodium 142 mmol/L (136-145); Total Protein 7.7 g/dL (6.4-8.2)
== END 2019-09-26 03:03 ==
PROVIDERS: PCP Family Medicine; Visit Provider Nurse Practitioner Adult Health
DX: C79.51 Secondary malignant neoplasm of bone (principal); C34.90 Malignant neoplasm of unspecified part of unspecified bronchus or lung; Z79.899 Other long term (current) drug therapy
CPT/HCPCS: 36415; 80053; 83615; 84439; 84443; 85025

== ENCOUNTER 2019-11-09 03:19 | Outpatient (CLI) | payer MEDICARE, SELFPAY ==
[2019-11-09 13:33] LABS: ALT 454 U/L (16-63); AST 177 U/L (15-37); Albumin 2.8 g/dL (3.4-5.0); Alkaline Phosphatase 357 U/L (46-116); Anion Gap 12.6 mmol/L (3-11); BUN 23 mg/dL (7-18); CO2 23.4 mmol/L (21.0-32.0); CREATININE 1.31 mg/dL (0.70-1.30); Calcium 7.6 mg/dL (8.5-10.1); Chloride 101 mmol/L (98-107); Estimated GFR 53.64 (mL/min/1.73m2); Glucose 120 mg/dL (74-106); Potassium 3.7 mmol/L (3.5-5.1); Sodium 137 mmol/L (136-145); Total Protein 6.9 g/dL (6.4-8.2)
== END 2019-11-09 03:39 ==
PROVIDERS: PCP Family Medicine; Visit Provider Internal Medicine
DX: K75.4 Autoimmune hepatitis (principal)
CPT/HCPCS: 36415; 80053

== ENCOUNTER 2019-11-17 03:21 | Outpatient (CLI) | payer MEDICARE, SELFPAY ==
[2019-11-17 09:54] LABS: Bilirubin Negative (Negative); Blood Trace-intact (Negative); Clarity Clear (Clear); Glucose Negative (Negative); Ketones Negative (Negative); Leukocyte Esterase Negative (Negative); Nitrite Negative (Negative); Urobilinogen 0.2 EU/dL (Up TO 0.2)
[2019-11-17 11:06] LABS: Bacteria Negative HPF (Negative); C & S Indicated? No; Casts Negative LPF (Negative); Crystals Negative HPF (Negative); Epithelial Cells Negative HPF (Negative); Mucus Negative (Negative); WBC 0-2 HPF (0-5)
== END 2019-11-17 03:41 ==
PROVIDERS: PCP Family Medicine; Visit Provider Internal Medicine Hematology & Oncology
DX: C34.90 Malignant neoplasm of unspecified part of unspecified bronchus or lung (principal)
CPT/HCPCS: 81003; 81015

== ENCOUNTER 2019-11-23 08:47 | Emergency (ER) | payer MEDICARE, SELFPAY ==
[2019-11-23 08:55] VITALS: BP 174/94; PULSE 104; RESP 16; TEMP 36.5; O2SAT 96
--- NOTE | 2019-11-23 09:11 | W.ED.GENAD ---
Discharge Plan Disposition Patient Disposition: HOME Condition: Good Discharge Details Chief Complaint: GenMedical Clinical Impression: Acute urinary retention Primary Care Provider: Reginald Roca ED Provider: Joseluis Lam Home Meds and New Rx's Prescriptions: No Action aspirin [Mary Kay Chewable Aspirin] 81 mg tablet,chewable 81 mg PO DAILY RF: 0 tamsulosin [Flomax] 0.4 mg capsule 0.8 mg PO DAILY Qty: 60 RF: 2 Centrum Silver 400-250 mcg Tablet,Chewable 1 tab PO DAILY RF: 0 Discharge Instructions Instructions: Urinary Retention in Men (ED) Additional Instructions: Please leave your Batres catheter in until you are seen by your urologist Dr. Hope or your primary care provider Dr. ortega. If you are not able to follow-up with them in 1 week please return here for reassessment and potential removal of catheter. If you notice any worsening of your symptoms, or any new symptoms such as vomiting, diarrhea, fever, chills, shortness of breath, chest pain, numbness, weakness, or fainting , please return immediately to the emergency department for reevaluation. Please follow up with your primary care provider as soon as possible for reassessment and reevaluation. As always, it was a pleasure participating in your medical care today. Referrals: Doron Hope MD [ [facility] STAFF PHYSICIAN] - Reginald Roca [Primary Care Provider] - Medical Decision Making 74-year-old male with a past medical history of benign prostatic hyperplasia, previous history of urinary retention presents with symptoms of urinary retention for the last 4 days. Physical exam demonstrates greater than 700 cc of urine in the bladder. Normal genital exam otherwise. Subjective burning when he urinates, but no other signs of fever or chills. No other clinical evidence of significant infection. No flank or CVA tenderness. We will put a straight cath in, with a leg bag. Monitor closely, check for infection and reassess. 9:54 AM Urinalysis has returned, no evidence of infection or concerning abnormality at this time. Patient had 1 L of urine come out. He is feeling much better at this time. He is requesting to go home. Patient will be discharged home with close follow-up. He has seen Dr. Hope in the past for this. We will place a referral with Jayy and his PCP raiser. Symptoms are likely secondary to his chronic prostatic hyperplasia. No other evidence of significant concerning intra-abdominal infection at this time. I have extensively reviewed the treatment plan and discharge instructions with the patient and their family. I have addressed all patient concerns at this time. The patient and family was made aware of what symptoms to monitor for that would warrant a return to the emergency department. Discussed the plan with the patient and family, they demonstrate verbal understanding and agreement with our assessment and plan at this time. HPI General Date/Time Provider Initiated Documentation: 11/23/19 08:56. HPI Narrative: 74-year-old male with a past medical history of prostatic hypertrophy, previous urinary retention presents today for urinary retention. Patient states that for the last 4 days he has had notable difficulty passing urine. He does admit to mild burning when he pees. He denies any blood. He denies any flank pain, he denies any fever or chills. He denies any numbness tingling or weakness. He has no other complaints at this time. He states that this feels similar to his previous episodes of urinary retention that required Batres. Related Data Home Medications Medication Instructions Recorded Confirmed Centrum Silver 1 tab PO DAILY 01/31/19 11/23/19 aspirin 81 mg chewable tablet 81 mg PO DAILY 06/09/19 11/23/19 tamsulosin 0.4 mg capsule 0.8 mg PO DAILY #60 cap 08/25/19 11/23/19 Previous Rx's Medication Instructions Recorded tamsulosin 0.4 mg capsule 0.8 mg PO DAILY #60 cap 08/25/19 Allergies Allergy/AdvReac Type Severity Reaction Status Date / Time bee stings Allergy Uncoded 11/23/19 08:57 General Stated Complaint: GenMedical DILIP: 3 Review of Systems All systems reviewed & are unremarkable except as noted in HPI and below PFSH Social History Smoking/Tobacco Use Status: Current every day Tobacco Type: cigarettes Alcohol Intake: never Substance use type: does not use Do you feel safe at home: Yes Do you feel safe in your relationship?: Yes Exam Narrative Exam Narrative: 1.Const: Well-nourished, Well-developed, appearing stated age 2.Eyes: PERRL, no conjunctival injection, and symmetrical lids. 3.ENT: Atraumatic external nose and ears. Moist MM. Neck: Symmetric, trachea midline, No thyromegaly. 4.CVS: +S1/S2, No murmurs or gallops. Peripheral pulses 2+ and equal in all extremities. Brisk capillary refill in all extremities. 5.RESP: Unlabored respiratory effort. Clear to auscultation bilaterally. No wheezes rales or rhonchi 6.GI: Soft, Nontender/Nondistended, No hepatosplenomegaly. No guarding or rebound. Notably full feeling bladder. Genital exam was performed with nurse at bedside, uncircumcised male, normal cremasteric reflex, no testicular tenderness or enlargement. No penile tenderness. No discharge at the urethra. No flank or CVA tenderness. 7.MSK: Normocephalic/Atraumatic, Extremities w/o deformity or ttp No cyanosis or clubbing, Normal movement of all extremities 8.Skin: Warm, Dry. No rashes or lesions. 9.Neuro: diagnostic sales specialist II-XII grossly intact. Sensation grossly intact, no focal neurologic deficits. 10.Psych: (AAO) x3. Appropriate mood and affect Course Vital Signs Vital signs: Vital Signs Temperature 36.5 C 11/23/19 08:55 Pulse 104 H 11/23/19 08:55 Respiratory Rate 16 11/23/19 08:55 Blood Pressure 174/94 H 11/23/19 08:55 Pulse Oximetry 96 11/23/19 08:55 Temperature 36.5 C 11/23/19 08:55 Temperature Source Axillary 11/23/19 08:55 Pulse 104 H 11/23/19 08:55 Respiratory Rate 16 11/23/19 08:55 Respiratory Effort Non-Labored 11/23/19 08:57 Blood Pressure 174/94 H 11/23/19 08:55 Blood Pressure Position Supine 11/23/19 08:55 Pulse Oximetry 96 11/23/19 08:55 Oxygen Delivery Method Room Air 11/23/19 08:55 Oxygen Flow Rate 0 11/23/19 08:55
[2019-11-23 09:16] LABS: Bilirubin Negative (Negative); Blood Trace-intact (Negative); Clarity Clear (Clear); Glucose Negative (Negative); Ketones Negative (Negative); Leukocyte Esterase Negative (Negative); Nitrite Negative (Negative); Specific Gravity 1.015 (1.005-1.025); Urobilinogen 0.2 EU/dL (Up TO 0.2); pH 6.5 (5-8)
[2019-11-23] MEDS: Lidocaine 2% Jelly 11 ML SYR (09:20)
[2019-11-23 09:53] LABS: Bacteria Rare HPF (Negative); Crystals Negative HPF (Negative); Epithelial Cells Negative HPF (Negative); Mucus Negative (Negative); Other Cells Negative (Negative); WBC 0-2 HPF (0-5)
[2019-11-23 09:54] LABS: C & S Indicated? No; Casts Negative LPF (Negative)
[2019-11-23 09:55] VITALS: BP 157/93; PULSE 98; RESP 16; O2SAT 96
--- NOTE | 2019-11-23 10:10 | NUR.NOTE ---
Referrals faxed [facility] and PCP [facility] Dr. Roca.Nursing Note:
== END 2019-11-23 09:58 | disposition home or self-care (01) ==
PROVIDERS: Emergency Provider Student in an Organized Health Care Education/Training Program; PCP Family Medicine
DX: N40.1 Benign prostatic hyperplasia with lower urinary tract symptoms (principal); R33.8 Other retention of urine
CPT/HCPCS: 36415; 51702; 80053; 99283; 81003; 81015; 83615; 84439; 85025

== ENCOUNTER 2019-11-24 02:55 | Outpatient (CLI) | payer MEDICARE, SELFPAY ==
[2019-11-23 10:22] LABS: Abs Immature Grans 0.04 k/cumm (0.0-0.09); Absolute Eosinophil Count 0.03 k/cumm (0.0-0.7); Absolute Lymphocyte Count 0.45 k/cumm (1.2-3.4); Absolute Monocyte Count 0.14 k/cumm (0.11-0.7); Absolute Neutrophil Count 8.96 k/cumm (1.2-6.7); Eosinophils % 0.3; HCT 32.8 % (40.0-50.0); HGB 10.4 g/dL (13.5-17.5); Immature Grans % 0.4 %; Lymphocytes % 4.7; Mean Corp. HGB Concentration 31.7 g/dL (32.0-36.0); Mean Corpuscular Hemoglobin 32.9 pg (27.0-33.0); Mean Corpuscular Volume 103.8 fL (80-95); Mean Platelet Volume 9.5 fL (8.0-11.0); Monocytes % 1.5; Neutrophils % 93.1; Platelet Count 178 x1000/uL (130-400); RBC 3.16 m/cumm (4.50-6.00); RBC Distribution Width 18.6 % (11.8-14.1); White Blood Cell Count 9.62 k/cumm (4.4-10.8)
[2019-11-23 10:39] LABS: ALT 133 U/L (16-63); AST 49 U/L (15-37); Albumin 3.4 g/dL (3.4-5.0); Alkaline Phosphatase 118 U/L (46-116); Anion Gap 8.5 mmol/L (3-11); BUN 12 mg/dL (7-18); Bilirubin, Total 1.8 mg/dL (0.2-1.0); CO2 24.5 mmol/L (21.0-32.0); CREATININE 1.13 mg/dL (0.70-1.30); Calcium 8.2 mg/dL (8.5-10.1); Chloride 102 mmol/L (98-107); FREE T4 1.14 ng/dL (0.76-1.46); Glucose 122 mg/dL (74-106); LDH 249 U/L (85-227); Potassium 4.2 mmol/L (3.5-5.1); Sodium 135 mmol/L (136-145); Total Protein 7.1 g/dL (6.4-8.2)
== END 2019-11-24 03:15 ==
PROVIDERS: PCP Family Medicine; Visit Provider Internal Medicine Hematology & Oncology
DX: C34.90 Malignant neoplasm of unspecified part of unspecified bronchus or lung (principal); Z79.899 Other long term (current) drug therapy
CPT/HCPCS: 36415; 80053; 83615; 84439; 85025

== ENCOUNTER → 2019-11-25 13:37 | Outpatient (BNVA) | payer MEDICARE, SELFPAY | PROVIDERS: PCP Family Medicine; Referring Provider Family Medicine; Visit Provider Urology | DX: R33.8 Other retention of urine (principal); I10 Essential (primary) hypertension | CPT/HCPCS: 99213 ==

== ENCOUNTER 2019-12-14 11:11 | Outpatient (CLI) | payer MEDICARE, SELFPAY ==
[2019-12-14 12:58] LABS: Abs Immature Grans 0.09 k/cumm (0.0-0.09); Absolute Basophil Count 0.02 k/cumm (0.0-0.2); Absolute Eosinophil Count 0.11 k/cumm (0.0-0.7); Absolute Lymphocyte Count 1.34 k/cumm (1.2-3.4); Absolute Monocyte Count 0.56 k/cumm (0.11-0.7); Absolute Neutrophil Count 6.72 k/cumm (1.2-6.7); Basophils % 0.2; Eosinophils % 1.2; HCT 34.7 % (40.0-50.0); Lymphocytes % 15.2; Mean Corp. HGB Concentration 31.7 g/dL (32.0-36.0); Mean Corpuscular Hemoglobin 31.6 pg (27.0-33.0); Mean Corpuscular Volume 99.7 fL (80-95); Mean Platelet Volume 9.7 fL (8.0-11.0); Monocytes % 6.3; Neutrophils % 76.1; Platelet Count 217 x1000/uL (130-400); RBC 3.48 m/cumm (4.50-6.00); RBC Distribution Width 15.6 % (11.8-14.1); White Blood Cell Count 8.84 k/cumm (4.4-10.8)
[2019-12-14 13:03] LABS: ALT 51 U/L (16-63); AST 42 U/L (15-37); Albumin 3.6 g/dL (3.4-5.0); Alkaline Phosphatase 39 U/L (46-116); Anion Gap 8.1 mmol/L (3-11); BUN 13 mg/dL (7-18); Bilirubin, Total 0.9 mg/dL (0.2-1.0); CO2 26.9 mmol/L (21.0-32.0); CREATININE 1.04 mg/dL (0.70-1.30); Calcium 8.8 mg/dL (8.5-10.1); Chloride 103 mmol/L (98-107); Glucose 95 mg/dL (74-106); LDH 256 U/L (85-227); Potassium 4.1 mmol/L (3.5-5.1); Sodium 138 mmol/L (136-145); Total Protein 7.5 g/dL (6.4-8.2)
== END 2019-12-14 11:31 ==
PROVIDERS: PCP Family Medicine; Visit Provider Internal Medicine Hematology & Oncology
DX: C34.11 Malignant neoplasm of upper lobe, right bronchus or lung (principal)
CPT/HCPCS: 36415; 80053; 83615; 85025

== ENCOUNTER → 2019-12-15 12:06 | Outpatient (BNVA) | payer MEDICARE, SELFPAY | PROVIDERS: PCP Family Medicine; Referring Provider Family Medicine; Visit Provider Urology ==

== ENCOUNTER → 2019-12-16 11:30 | Outpatient (BNVA) | payer MEDICARE, SELFPAY | PROVIDERS: PCP Family Medicine; Referring Provider Family Medicine; Visit Provider Urology | DX: R33.8 Other retention of urine (principal) ==

== ENCOUNTER 2019-12-21 00:19 | Outpatient (CLI) | payer MEDICARE, SELFPAY ==
[2019-12-21 09:19] LABS: Abs Immature Grans 0.06 k/cumm (0.0-0.09); Absolute Basophil Count 0.02 k/cumm (0.0-0.2); Absolute Eosinophil Count 0.09 k/cumm (0.0-0.7); Absolute Lymphocyte Count 0.86 k/cumm (1.2-3.4); Absolute Monocyte Count 0.31 k/cumm (0.11-0.7); Absolute Neutrophil Count 7.74 k/cumm (1.2-6.7); Basophils % 0.2; HCT 31.7 % (40.0-50.0); Immature Grans % 0.7 %; Lymphocytes % 9.5; Mean Corp. HGB Concentration 31.5 g/dL (32.0-36.0); Mean Corpuscular Hemoglobin 31.3 pg (27.0-33.0); Mean Corpuscular Volume 99.1 fL (80-95); Mean Platelet Volume 8.9 fL (8.0-11.0); Monocytes % 3.4; Neutrophils % 85.2; Platelet Count 258 x1000/uL (130-400); RBC Distribution Width 15.4 % (11.8-14.1); White Blood Cell Count 9.08 k/cumm (4.4-10.8)
[2019-12-21 09:31] LABS: ALT 38 U/L (16-63); AST 28 U/L (15-37); Albumin 3.6 g/dL (3.4-5.0); Alkaline Phosphatase 37 U/L (46-116); Anion Gap 9.1 mmol/L (3-11); BUN 15 mg/dL (7-18); Bilirubin, Total 0.6 mg/dL (0.2-1.0); CO2 25.9 mmol/L (21.0-32.0); CREATININE 1.06 mg/dL (0.70-1.30); Chloride 105 mmol/L (98-107); Glucose 115 mg/dL (74-106); LDH 205 U/L (85-227); Potassium 4.2 mmol/L (3.5-5.1); Sodium 140 mmol/L (136-145); Total Protein 7.4 g/dL (6.4-8.2)
== END 2019-12-21 00:39 ==
PROVIDERS: PCP Family Medicine; Visit Provider Internal Medicine Hematology & Oncology
DX: C34.90 Malignant neoplasm of unspecified part of unspecified bronchus or lung (principal)
CPT/HCPCS: 36415; 80053; 83615; 85025

== ENCOUNTER → 2019-12-23 07:55 | Outpatient (BNVA) | payer MEDICARE, SELFPAY | PROVIDERS: PCP Family Medicine; Referring Provider Family Medicine; Visit Provider Urology | DX: R33.8 Other retention of urine (principal); Z46.6 Encounter for fitting and adjustment of urinary device; I10 Essential (primary) hypertension | CPT/HCPCS: 51702; 99213 ==

== ENCOUNTER 2020-01-17 00:18 | Outpatient (CLI) | payer MEDICARE, SELFPAY ==
--- NOTE | 2020-01-17 | DI.CT_ITS ---
EXAM: CT CHEST W CLINICAL HISTORY: SMALL CELL LUNG CA,S/P TREATMENT, ? PROGRESSION COMPARISON: CT CHEST W LEB from 11/01/2019 FINDINGS: CT examination of the chest was performed with a bolus infusion of 70 cc of Omnipaque 350. Compariso n is made with prior study from [facility] of 11/01/2019. Images obtained through the upper abdomen show unremarkable appearance of visualized portions of the kidneys, spleen, and pancreas. Gallbladder and bile ducts are unremarkable. A previously described left lobe hepatic metastasis is again seen and grossly unchanged. There are n umerous new intrahepatic masses, the largest in the right lobe measuring about 42 millimeters in diam eter. Retrocrural lymph nodes are again noted, these are waxing and waning in size, a nodule left retrocrur al previously measured 9 millimeters and now measures may measures 16 millimeters in diameter. Previously noted right adrenal metaphysis, 24 millimeters, now measures 20 millimeters. New left adrenal nodule, 25 millimeters in diameter. An additional approximately 15 millimeter in di ameter left adrenal nodule is also noted. Mediastinal adenopathy described on prior examination shows waxing and waning of numerous metastatic nodules. Subcarinal nodule has increased from 23 millimeters to 26 millimeters. Pretracheal nodules previously 21 millimeters, now 19 millimeters. Superior mediastinal nodule has increased from 9 mil limeters to 15 millimeters. There is new left axillary adenopathy with a 17 millimeter lymph node with abnormal morphology, and 1 1 millimeter normal appearing lymph node was previously present. Slight interval increase in prominence of numerous nodes in the lower cervical region. No evidence of pulmonary embolic disease. Ascending thoracic aortic ectasia noted at 42 millimeters. No other significant thoracic aortic abnormality. Tracheobronchial tree appears intact. The dominant right upper lobe lung lesion is again noted, maximal oblique diameter now 36 millimeters , compared to maximal oblique diameter 39 millimeters on prior study. No new intrapulmonary mass remigio ntified. No pleural effusion. IMPRESSION: 1. Multiple new hepatic metastases in a patient with known lung carcinoma. 2. Waxing and waning size of multiple retro crural and mediastinal lymph nodes. 3. New left adrenal metastasis, slight interval decrease in size of previously noted right adrenal le dalton. 4. Slight interval decrease in size of right upper lobe pulmonary mass. 5. New left axillary lymph node metastasis.
[2020-01-17 12:25] LABS: Abs Immature Grans 0.03 k/cumm (0.0-0.09); Absolute Basophil Count 0.03 k/cumm (0.0-0.2); Absolute Eosinophil Count 0.27 k/cumm (0.0-0.7); Absolute Lymphocyte Count 1.42 k/cumm (1.2-3.4); Absolute Monocyte Count 0.54 k/cumm (0.11-0.7); Absolute Neutrophil Count 6.36 k/cumm (1.2-6.7); Basophils % 0.3; Eosinophils % 3.1; HCT 29.8 % (40.0-50.0); HGB 9.1 g/dL (13.5-17.5); Immature Grans % 0.3 %; Lymphocytes % 16.4; Mean Corp. HGB Concentration 30.5 g/dL (32.0-36.0); Mean Corpuscular Volume 91.7 fL (80-95); Mean Platelet Volume 9.8 fL (8.0-11.0); Monocytes % 6.2; Neutrophils % 73.7; Platelet Count 332 x1000/uL (130-400); RBC 3.25 m/cumm (4.50-6.00); RBC Distribution Width 15.6 % (11.8-14.1); White Blood Cell Count 8.65 k/cumm (4.4-10.8)
[2020-01-17 12:41] LABS: ALT 25 U/L (16-63); AST 34 U/L (15-37); Albumin 3.7 g/dL (3.4-5.0); Alkaline Phosphatase 32 U/L (46-116); Anion Gap 8.6 mmol/L (3-11); BUN 10 mg/dL (7-18); Bilirubin, Total 0.4 mg/dL (0.2-1.0); CO2 26.4 mmol/L (21.0-32.0); Calcium 8.7 mg/dL (8.5-10.1); Chloride 102 mmol/L (98-107); Estimated GFR 59.35 (mL/min/1.73m2); Glucose 100 mg/dL (74-106); LDH 232 U/L (85-227); Potassium 3.9 mmol/L (3.5-5.1); Sodium 137 mmol/L (136-145); Total Protein 7.4 g/dL (6.4-8.2)
[2020-01-17 12:51] LABS: Diff Comment Diff Reviewed; RBC Morphology Normal
[2020-01-17] MEDS: Omnipaque 350 MG/ML 100 ML BTL 70 ML IJ (12:58)
[2020-01-17] MEDS: Normal Saline - Diluent 50 ML VIAL IV (12:59)
== END 2020-01-17 00:38 ==
PROVIDERS: PCP Family Medicine; Visit Provider Internal Medicine Hematology & Oncology
DX: C34.11 Malignant neoplasm of upper lobe, right bronchus or lung (principal); C79.51 Secondary malignant neoplasm of bone; C78.7 Secondary malignant neoplasm of liver and intrahepatic bile duct; C79.72 Secondary malignant neoplasm of left adrenal gland; C77.3 Secondary and unspecified malignant neoplasm of axilla and upper limb lymph nodes; R59.0 Localized enlarged lymph nodes
CPT/HCPCS: 80053; 71260; 83615; 85025; J3490

== ENCOUNTER → 2020-01-24 08:43 | Outpatient (BNVA) | payer MEDICARE, SELFPAY | PROVIDERS: PCP Family Medicine; Referring Provider Family Medicine; Visit Provider Nurse Practitioner Gerontology | DX: R33.8 Other retention of urine (principal); I10 Essential (primary) hypertension; Z46.6 Encounter for fitting and adjustment of urinary device | CPT/HCPCS: 51702; 99212 ==

== ENCOUNTER 2020-02-06 01:23 | Outpatient (RCR) | payer MEDICARE, SELFPAY ==
[2020-01-30] MEDS: Normal Saline Flush 10 ML SYR IVP (07:25)
[2020-01-30 07:50] LABS: Abs Immature Grans 0.03 k/cumm (0.0-0.09); Absolute Basophil Count 0.03 k/cumm (0.0-0.2); Absolute Eosinophil Count 0.35 k/cumm (0.0-0.7); Absolute Lymphocyte Count 1.05 k/cumm (1.2-3.4); Absolute Monocyte Count 0.42 k/cumm (0.11-0.7); Absolute Neutrophil Count 4.75 k/cumm (1.2-6.7); Basophils % 0.5; Eosinophils % 5.3; HCT 27.9 % (40.0-50.0); HGB 8.6 g/dL (13.5-17.5); Immature Grans % 0.5 %; Lymphocytes % 15.8; Mean Corp. HGB Concentration 30.8 g/dL (32.0-36.0); Mean Corpuscular Hemoglobin 27.2 pg (27.0-33.0); Mean Corpuscular Volume 88.3 fL (80-95); Monocytes % 6.3; Neutrophils % 71.6; Platelet Count 302 x1000/uL (130-400); RBC 3.16 m/cumm (4.50-6.00); RBC Distribution Width 15.9 % (11.8-14.1); White Blood Cell Count 6.63 k/cumm (4.4-10.8)
[2020-01-30 08:02] LABS: ALT 21 U/L (16-63); AST 60 U/L (15-37); Albumin 3.4 g/dL (3.4-5.0); Alkaline Phosphatase 31 U/L (46-116); Anion Gap 8.4 mmol/L (3-11); BUN 9 mg/dL (7-18); Bilirubin, Total 0.5 mg/dL (0.2-1.0); CO2 23.6 mmol/L (21.0-32.0); CREATININE 1.02 mg/dL (0.70-1.30); Calcium 8.8 mg/dL (8.5-10.1); Chloride 103 mmol/L (98-107); Glucose 108 mg/dL (74-106); LDH 519 U/L (85-227); Potassium 5.1 mmol/L (3.5-5.1); Sodium 135 mmol/L (136-145); Total Protein 7.5 g/dL (6.4-8.2)
[2020-02-06] MEDS: Normal Saline Flush 10 ML SYR IVP (10:52)
[2020-02-06 10:53] LABS: Abs Immature Grans 0.03 k/cumm (0.0-0.09); Absolute Basophil Count 0.02 k/cumm (0.0-0.2); Absolute Eosinophil Count 0.28 k/cumm (0.0-0.7); Absolute Lymphocyte Count 1.14 k/cumm (1.2-3.4); Absolute Monocyte Count 0.32 k/cumm (0.11-0.7); Absolute Neutrophil Count 3.61 k/cumm (1.2-6.7); Basophils % 0.4; Eosinophils % 5.2; HCT 28.6 % (40.0-50.0); HGB 8.8 g/dL (13.5-17.5); Immature Grans % 0.6 %; Lymphocytes % 21.1; Mean Corp. HGB Concentration 30.8 g/dL (32.0-36.0); Mean Corpuscular Hemoglobin 26.8 pg (27.0-33.0); Mean Corpuscular Volume 87.2 fL (80-95); Mean Platelet Volume 9.8 fL (8.0-11.0); Monocytes % 5.9; Neutrophils % 66.8; Platelet Count 350 x1000/uL (130-400); RBC 3.28 m/cumm (4.50-6.00); RBC Distribution Width 16.4 % (11.8-14.1)
[2020-02-06 11:06] LABS: ALT 21 U/L (16-63); AST 27 U/L (15-37); Albumin 3.6 g/dL (3.4-5.0); Alkaline Phosphatase 40 U/L (46-116); Anion Gap 10.6 mmol/L (3-11); BUN 10 mg/dL (7-18); Bilirubin, Total 0.5 mg/dL (0.2-1.0); CO2 23.4 mmol/L (21.0-32.0); CREATININE 1.16 mg/dL (0.70-1.30); Calcium 8.8 mg/dL (8.5-10.1); Chloride 104 mmol/L (98-107); Glucose 101 mg/dL (74-106); Sodium 138 mmol/L (136-145); Total Protein 7.6 g/dL (6.4-8.2)
== END 2020-02-19 23:59 | disposition home or self-care (01) ==
LOC: INF 01:23
PROVIDERS: PCP Family Medicine; Visit Provider Internal Medicine Hematology & Oncology
DX: Z79.899 Other long term (current) drug therapy (principal)
CPT/HCPCS: 36415; 80053; 83615; 85025

== ENCOUNTER → 2020-02-16 08:40 | Outpatient (BNVA) | payer MEDICARE, SELFPAY | PROVIDERS: PCP Family Medicine; Referring Provider Family Medicine; Visit Provider Nurse Practitioner Gerontology | DX: R33.9 Retention of urine, unspecified (principal); N39.0 Urinary tract infection, site not specified; B96.20 Unspecified Escherichia coli [E. coli] as the cause of diseases classified elsewhere; Z46.6 Encounter for fitting and adjustment of urinary device; I25.10 Atherosclerotic heart disease of native coronary artery without angina pectoris; I10 Essential (primary) hypertension | CPT/HCPCS: 51702; 81003; 99213; 99215 ==

== ENCOUNTER → 2020-02-16 09:44 | Outpatient (BNVA) | payer MEDICARE, SELFPAY | PROVIDERS: PCP Family Medicine; Referring Provider Family Medicine; Visit Provider Internal Medicine Cardiovascular Disease | DX: I25.10 Atherosclerotic heart disease of native coronary artery without angina pectoris; I10 Essential (primary) hypertension | CPT/HCPCS: 99204; 99215 ==

== ENCOUNTER 2020-02-16 11:04 | Outpatient (REF) | payer MEDICARE, SELFPAY | END 2020-02-16 11:24 | LOC: LBN 11:04 | PROVIDERS: PCP Family Medicine; Visit Provider Nurse Practitioner Gerontology | DX: R33.9 Retention of urine, unspecified (principal) | CPT/HCPCS: 87077; 87086; 87186 ==

== ENCOUNTER 2020-03-02 02:14 | Outpatient (CLI) | payer MEDICARE, SELFPAY ==
[2020-03-02 09:31] LABS: Abs Immature Grans 0.01 k/cumm (0.0-0.09); Absolute Basophil Count 0.01 k/cumm (0.0-0.2); Absolute Lymphocyte Count 1.25 k/cumm (1.2-3.4); Absolute Monocyte Count 0.07 k/cumm (0.11-0.7); Absolute Neutrophil Count 4.01 k/cumm (1.2-6.7); Basophils % 0.2; Eosinophils % 5.3; HCT 27.6 % (40.0-50.0); HGB 8.3 g/dL (13.5-17.5); Immature Grans % 0.2 %; Lymphocytes % 22.1; Mean Corp. HGB Concentration 30.1 g/dL (32.0-36.0); Mean Corpuscular Hemoglobin 25.3 pg (27.0-33.0); Mean Corpuscular Volume 84.1 fL (80-95); Mean Platelet Volume 9.8 fL (8.0-11.0); Monocytes % 1.2; Platelet Count 328 x1000/uL (130-400); RBC 3.28 m/cumm (4.50-6.00); White Blood Cell Count 5.65 k/cumm (4.4-10.8)
[2020-03-02 09:44] LABS: Diff Comment RBC Morph Reviewed
[2020-03-02 09:45] LABS: Anisocytosis 1+; Basophilic Stippling Present; Hypochromasia 2+; Microcytosis 2+; Poikilocytes 2+
--- NOTE | 2020-03-02 10:00 | DI.CT_ITS ---
EXAM: CT CHEST/ABD/PEL W CLINICAL HISTORY: SMALL CELL LUNG CA,C34.90,ANEMIA,D64.9 TECHNIQUE: Imaging Protocol: Axial computed tomography images with coronal and sagittal reformatted images were created and reviewed CONTRAST MATERIAL: Intravenous: Omnipaque 350 Contrast volume:100 mL Oral: Yes COMPARISON: CT CT CHEST W LEB from 11/01/[address] CHEST W from 01/17/[address] CHEST W from 01/17/2020 FINDINGS: CHEST: Tracheobronchial tree: Patent where visualized. Mediastinum and Edwina: Mediastinal and hilar adenopathy. Interval decrease in size of the largest lymp h node in the subcarinal region. It measures 0.2 x 2 cm compared with 0.4 x 2.1 cm. Pulmonary parenchyma: Centrilobular emphysema. The pulmonary metastasis in the right upper lobe measu res 3.2 x 2.9 cm compared with 3.4 x 2.9 cm. No new pulmonary masses. Areas of consolidation. Pleura: No effusion or pneumothorax. Heart: The heart is not dilated. Marked coronary artery calcification. No significant pericardial eff usion. Aorta: Unchanged thoracic aorta. Atherosclerosis. Lymph nodes: Please see above. Bones:Sclerotic metastases. ABDOMEN: Liver: There are again seen multiple hepatic metastases. The largest metastasis is in the right lobe and measures 3.2 x 2.9 cm. This compares with 3.7 x 3.5 cm. A lesion in the posterior segment of the right lobe of the liver measures 2 x 2 cm compared to 2.3 x 2 cm. Portal, Superior Mesenteric, and Splenic Veins: Unremarkable. Gallbladder and Biliary Tract: No radiodense calculus or dilation. Pancreas: Normal density, no abnormal calcifications or inflammatory process. Spleen: The round hypodense lesion in the superior aspect of the spleen has shown interval increase i n size measuring 1.1 cm in diameter compared to 0.6 cm in diameter. This was not present on the CT sc an of the chest from 11/01/2019. Adrenals: The right adrenal nodule measures 1.5 x 1.5 cm compared with 1.7 x 1.9 cm. The left adrenal nodule measures 2.1 x 3.2 cm compared with 1.5 x 2.6 cm. Kidneys: Normal size, contour and axis. No radiodense stones or obstructive uropathy. There are tiny hypodensities in the kidneys bilaterally. These are too small for further characterization but likely reflect small cysts. Abdominal Aorta: Abdominal portion non-dilated. Atherosclerosis. Bowel: No obstruction or bowel wall thickening. Appendix is unremarkable. Colonic diverticulosis but no evidence of acute diverticulitis. Peritoneal Cavity: No ascites, collection or mesenteric inflammatory response. Lymph Nodes: There are enlarged retroperitoneal lymph nodes present. The largest are in the left taran c chain. The largest measures 5.8 x 2.5 cm. Lymph nodes are seen in the left periaortic region. Large st collection measures 2.4 x 2.4 x 4.6 cm. There is a 2.1 x 2.4 cm aortic caval lymph node. There is a 2.3 x 1.7 right iliac chain lymph node. Bones: Sclerotic metastases are seen in the bones particularly the left iliac bone. No compression fr actures are seen in the spine. Soft Tissues: There is a fat containing umbilical hernia. PELVIS: Bladder: There is diffuse thickening of the wall of the urinary bladder. This likely is secondary to chronic bladder outlet obstruction. A Batres catheter is in place. Reproductive Organs: Prostate gland is markedly enlarged measuring 9.2 cm AP by 8.5 cm transverse by 10.4 cm craniocaudad. The mass contains cystic and solid components with internal calcifications. The re appears to be invasion of the rectum posteriorly. In addition, pelvic sidewall involvement cannot be excluded. Lymph Nodes: Please see the above discussion for complete details. Bones: Please see the above discussion. IMPRESSION: 1. Markedly enlarged prostate gland suspicious for carcinoma. Findings suggestive if invasion of the rectum posteriorly and probable sidewall involvement. 2. Pelvic and sidewall adenopathy. 3. Osseous sclerotic metastases. 4. Hepatic metastases which some have shown decrease in size. 5. Increasing splenic nodule suspicious for metastasis. 6. Adrenal metastasis. Increased size of left adrenal metastasis. 7. Interval decrease in size of the largest subcarinal lymph node. 8. Right upper lobe pulmonary nodule without significant change. RADIATION DOSE DELIVERED: 1,706.51mGy.cm Total DLP DATA REPOSITORY: All CT scans at this facility are submitted to the National Radiology Data Registry (NRDR) Dose Index Registry (DIR) with the [employer] (ACR). RADIATION OPTIMIZATION: All CT scans at this facility use at least one of these dose optimization te chniques: automated exposure control; mA and/or kV adjustment per patient size (includes targeted exa ms where dose is matched to clinical indication); or iterative reconstruction.
[2020-03-02] MEDS: Omnipaque 350 MG/ML 100 ML BTL IJ (10:06)
[2020-03-02] MEDS: Normal Saline - Diluent 50 ML VIAL IV (10:07)
[2020-03-02] MEDS: Omnipaque 350 MG/ML 50 ML BTL IJ (10:08)
[2020-03-02] MEDS: Breeza Beverage 473 ML BTL PO (10:08)
[2020-03-02 10:17] LABS: ALT 24 U/L (16-63); AST 31 U/L (15-37); Albumin 3.7 g/dL (3.4-5.0); Alkaline Phosphatase 31 U/L (46-116); Anion Gap 8.4 mmol/L (3-11); BUN 10 mg/dL (7-18); Bilirubin, Total 0.8 mg/dL (0.2-1.0); CO2 26.6 mmol/L (21.0-32.0); CREATININE 1.05 mg/dL (0.70-1.30); Calcium 8.7 mg/dL (8.5-10.1); Chloride 103 mmol/L (98-107); Ferritin 87 ng/mL (26-388); Glucose 101 mg/dL (74-106); Sodium 138 mmol/L (136-145); TSH 2.54 uIU/mL (0.36-3.74); Total Protein 7.3 g/dL (6.4-8.2); Vitamin B12 452 pg/mL (193-986)
[2020-03-02 10:30] LABS: LDH 186 U/L (85-227); PHOSPHORUS 3.7 mg/dL (2.6-4.7)
== END 2020-03-02 02:34 ==
PROVIDERS: PCP Family Medicine; Visit Provider Internal Medicine Hematology & Oncology
DX: C34.11 Malignant neoplasm of upper lobe, right bronchus or lung (principal); C78.7 Secondary malignant neoplasm of liver and intrahepatic bile duct; C79.72 Secondary malignant neoplasm of left adrenal gland; C79.51 Secondary malignant neoplasm of bone; D73.89 Other diseases of spleen; D64.9 Anemia, unspecified; R59.0 Localized enlarged lymph nodes; J43.8 Other emphysema; N32.89 Other specified disorders of bladder; R91.1 Solitary pulmonary nodule; N42.89 Other specified disorders of prostate; Z79.899 Other long term (current) drug therapy
CPT/HCPCS: 74177; 80053; 71260; 82607; 82728; 83615; 84100; 84443; 85025; J3490; Q9967

== ENCOUNTER 2020-03-19 01:51 | Outpatient (RCR) | payer MEDICARE, SELFPAY ==
[2020-02-20 07:30] LABS: Abs Immature Grans 0.02 k/cumm (0.0-0.09); Absolute Basophil Count 0.04 k/cumm (0.0-0.2); Absolute Eosinophil Count 0.29 k/cumm (0.0-0.7); Absolute Lymphocyte Count 1.09 k/cumm (1.2-3.4); Absolute Neutrophil Count 3.49 k/cumm (1.2-6.7); Basophils % 0.7; Eosinophils % 5.3; HCT 29.6 % (40.0-50.0); HGB 9.1 g/dL (13.5-17.5); Immature Grans % 0.4 %; Lymphocytes % 20.1; Mean Corp. HGB Concentration 30.7 g/dL (32.0-36.0); Mean Corpuscular Hemoglobin 25.9 pg (27.0-33.0); Mean Corpuscular Volume 84.1 fL (80-95); Mean Platelet Volume 9.1 fL (8.0-11.0); Monocytes % 9.2; Neutrophils % 64.3; Platelet Count 385 x1000/uL (130-400); RBC 3.52 m/cumm (4.50-6.00); RBC Distribution Width 17.3 % (11.8-14.1); White Blood Cell Count 5.43 k/cumm (4.4-10.8)
[2020-02-20 07:42] LABS: ALT 21 U/L (16-63); AST 29 U/L (15-37); Albumin 3.7 g/dL (3.4-5.0); Alkaline Phosphatase 40 U/L (46-116); Anion Gap 9.7 mmol/L (3-11); BUN 8 mg/dL (7-18); Bilirubin, Total 0.4 mg/dL (0.2-1.0); CO2 23.3 mmol/L (21.0-32.0); CREATININE 1.17 mg/dL (0.70-1.30); Calcium 8.7 mg/dL (8.5-10.1); Chloride 102 mmol/L (98-107); Glucose 107 mg/dL (74-106); LDH 208 U/L (85-227); Sodium 135 mmol/L (136-145); Total Protein 7.6 g/dL (6.4-8.2)
[2020-02-20] MEDS: Normal Saline Flush 10 ML SYR IVP (07:52)
[2020-02-20 08:03] LABS: Anisocytosis 2+; Basophilic Stippling Present; Diff Comment RBC Morph Reviewed; Hypochromasia 1+
[2020-02-20 08:04] LABS: Microcytosis 1+; Polychromasia Present
[2020-02-20 08:05] LABS: Poikilocytes 2+
[2020-02-27] MEDS: Normal Saline Flush 10 ML SYR IVP (07:30)
[2020-02-27 07:50] LABS: Abs Immature Grans 0.06 k/cumm (0.0-0.09); Absolute Basophil Count 0.03 k/cumm (0.0-0.2); Absolute Eosinophil Count 0.24 k/cumm (0.0-0.7); Absolute Lymphocyte Count 1.47 k/cumm (1.2-3.4); Absolute Monocyte Count 0.32 k/cumm (0.11-0.7); Absolute Neutrophil Count 2.63 k/cumm (1.2-6.7); Basophils % 0.6; Eosinophils % 5.1; HCT 28.5 % (40.0-50.0); HGB 8.5 g/dL (13.5-17.5); Immature Grans % 1.3 %; Lymphocytes % 30.9; Mean Corp. HGB Concentration 29.8 g/dL (32.0-36.0); Mean Corpuscular Hemoglobin 25.1 pg (27.0-33.0); Mean Corpuscular Volume 84.3 fL (80-95); Mean Platelet Volume 10.3 fL (8.0-11.0); Monocytes % 6.7; Neutrophils % 55.4; Platelet Count 356 x1000/uL (130-400); RBC 3.38 m/cumm (4.50-6.00); RBC Distribution Width 17.5 % (11.8-14.1); White Blood Cell Count 4.75 k/cumm (4.4-10.8)
[2020-02-27 08:02] LABS: ALT 20 U/L (16-63); AST 33 U/L (15-37); Albumin 3.6 g/dL (3.4-5.0); Alkaline Phosphatase 36 U/L (46-116); Anion Gap 11.6 mmol/L (3-11); BUN 7 mg/dL (7-18); Bilirubin, Total 0.4 mg/dL (0.2-1.0); CO2 22.4 mmol/L (21.0-32.0); CREATININE 0.93 mg/dL (0.70-1.30); Calcium 8.6 mg/dL (8.5-10.1); Chloride 107 mmol/L (98-107); Glucose 133 mg/dL (74-106); Potassium 3.5 mmol/L (3.5-5.1); Sodium 141 mmol/L (136-145); Total Protein 7.4 g/dL (6.4-8.2)
[2020-03-12 07:45] LABS: Abs Immature Grans 0.01 k/cumm (0.0-0.09); Absolute Basophil Count 0.02 k/cumm (0.0-0.2); Absolute Eosinophil Count 0.31 k/cumm (0.0-0.7); Absolute Lymphocyte Count 1.18 k/cumm (1.2-3.4); Absolute Monocyte Count 0.52 k/cumm (0.11-0.7); Absolute Neutrophil Count 3.15 k/cumm (1.2-6.7); Basophils % 0.4; HGB 8.7 g/dL (13.5-17.5); Immature Grans % 0.2 %; Lymphocytes % 22.7; Mean Corpuscular Volume 83.3 fL (80-95); Mean Platelet Volume 9.9 fL (8.0-11.0); Neutrophils % 60.7; Platelet Count 424 x1000/uL (130-400); RBC 3.48 m/cumm (4.50-6.00); RBC Distribution Width 18.8 % (11.8-14.1); White Blood Cell Count 5.19 k/cumm (4.4-10.8)
[2020-03-12 08:04] LABS: ALT 19 U/L (16-63); AST 29 U/L (15-37); Albumin 3.6 g/dL (3.4-5.0); Alkaline Phosphatase 30 U/L (46-116); Anion Gap 8.5 mmol/L (3-11); BUN 7 mg/dL (7-18); Bilirubin, Total 0.5 mg/dL (0.2-1.0); CO2 24.5 mmol/L (21.0-32.0); CREATININE 0.97 mg/dL (0.70-1.30); Calcium 8.3 mg/dL (8.5-10.1); Chloride 106 mmol/L (98-107); Glucose 107 mg/dL (74-106); LDH 189 U/L (85-227); Potassium 4.1 mmol/L (3.5-5.1); Sodium 139 mmol/L (136-145); Total Protein 7.1 g/dL (6.4-8.2)
[2020-03-12] MEDS: Normal Saline Flush 10 ML SYR IVP (08:12)
[2020-03-19] MEDS: Normal Saline Flush 10 ML SYR IVP (07:36)
[2020-03-19 07:59] LABS: Abs Immature Grans 0.07 k/cumm (0.0-0.09); Absolute Basophil Count 0.05 k/cumm (0.0-0.2); Absolute Eosinophil Count 0.24 k/cumm (0.0-0.7); Absolute Lymphocyte Count 1.17 k/cumm (1.2-3.4); Absolute Monocyte Count 0.39 k/cumm (0.11-0.7); Absolute Neutrophil Count 3.07 k/cumm (1.2-6.7); Eosinophils % 4.8; HCT 28.3 % (40.0-50.0); HGB 8.5 g/dL (13.5-17.5); Immature Grans % 1.4 %; Lymphocytes % 23.4; Mean Corpuscular Hemoglobin 25.1 pg (27.0-33.0); Mean Corpuscular Volume 83.5 fL (80-95); Mean Platelet Volume 10.1 fL (8.0-11.0); Monocytes % 7.8; Neutrophils % 61.6; Platelet Count 371 x1000/uL (130-400); RBC 3.39 m/cumm (4.50-6.00); RBC Distribution Width 19.2 % (11.8-14.1); White Blood Cell Count 4.99 k/cumm (4.4-10.8)
[2020-03-19 08:08] LABS: ALT 19 U/L (16-63); AST 32 U/L (15-37); Albumin 3.5 g/dL (3.4-5.0); Alkaline Phosphatase 34 U/L (46-116); Anion Gap 9.4 mmol/L (3-11); BUN 7 mg/dL (7-18); Bilirubin, Total 0.4 mg/dL (0.2-1.0); CO2 24.6 mmol/L (21.0-32.0); CREATININE 1.12 mg/dL (0.70-1.30); Calcium 8.8 mg/dL (8.5-10.1); Chloride 105 mmol/L (98-107); Glucose 142 mg/dL (74-106); Potassium 3.7 mmol/L (3.5-5.1); Sodium 139 mmol/L (136-145); Total Protein 7.1 g/dL (6.4-8.2)
== END 2020-03-20 23:59 | disposition home or self-care (01) ==
LOC: INF 01:51
PROVIDERS: PCP Family Medicine; Visit Provider Internal Medicine Hematology & Oncology
DX: Z79.899 Other long term (current) drug therapy (principal)
CPT/HCPCS: 36415; 80053; 83615; 85025

== ENCOUNTER → 2020-03-20 08:44 | Outpatient (BNVA) | payer MEDICARE, SELFPAY | PROVIDERS: PCP Family Medicine; Referring Provider Family Medicine; Visit Provider Nurse Practitioner Gerontology | DX: R33.8 Other retention of urine (principal); Z46.6 Encounter for fitting and adjustment of urinary device | CPT/HCPCS: 51702; 99213 ==

== ENCOUNTER 2020-04-16 01:22 | Outpatient (CLI) | payer MEDICARE, SELFPAY ==
[2020-04-16] MEDS: Breeza Beverage 473 ML BTL PO ×2 (08:17→08:18)
[2020-04-16] MEDS: Omnipaque 350 MG/ML 50 ML BTL IJ (08:17)
[2020-04-16] MEDS: Omnipaque 350 MG/ML 100 ML BTL IJ (10:23)
[2020-04-16] MEDS: Normal Saline - Diluent 50 ML VIAL IV (10:35)
--- NOTE | 2020-04-16 10:35 | DI.CT_ITS ---
EXAM: CT CHEST/ABD/PEL W CLINICAL HISTORY: EXTENSIVE STAGE SMALL CELL LUNG CA, ON TREATMENT. TECHNIQUE: Imaging Protocol: Axial computed tomography images with coronal and sagittal reformatted images were created and reviewed CONTRAST MATERIAL: Intravenous: Omnipaque 350 Contrast volume:100 ml Oral: yes / COMPARISON: CT CT neck w from 05/04/[address] CHEST W LEB from 11/01/[address] CHEST/ABD/PEL W from 03/02/[address] CHEST/ABD/PEL W from 03/02/2020 FINDINGS: CHEST: Thyroid: Stable small cystic area in the right lobe. Pulmonary parenchyma: The mass in the posterior right upper lobe is stable in size at 3.2 by 2.8 cm. No new masses. Pleura: No effusion or pneumothorax. Lymph nodes: 15 millimeter left axillary lymph node mildly increased compared with 13 millimeters on the previous exam. Confluent lobulated adenopathy is again noted in the anterior and middle mediasti num. The subcarinal node is stable at 3.1 by 2 cm. Aorta: Thoracic portion non-dilated. Heart: Within normal limits in size. Coronary artery calcifications are seen. Bones: sclerotic metastases are again noted. ABDOMEN: Liver: Normal density. Multiple stable liver metastases. Gallbladder and biliary tract: No radiodense calculus or dilation. Pancreas: Normal density, no abnormal calcifications or inflammatory process. Spleen: Interval increase in size splenic lesion to 15 millimeters compared with 11 millimeters. Kidneys: Normal size, contour and axis. No radiodense stones or obstructive uropathy. No masses seen. Adrenal glands: Stable 15 millimeter right adrenal nodule. Increased size of left adrenal mass, now measuring 4 by 2.8 cm compared with 3.2 by 2.1 cm. Aorta: Abdominal portion non-dilated. Lymph nodes: Multiple enlarged retroperitoneal lymph nodes are again noted. The left iliac chain lym ph node now measures 5.2 x 2.1 cm compared with 5.8 x 2.5 cm. PELVIS: Bladder: Marked bladder wall thickening. Catheter present. Marked prostate enlargement with a necro tic mass, now containing air which could be secondary to communication with the rectum. The prostate mass now measures 8.4 cm cephalo caudad by 7.1 transverse by 7.4 cephalo caudad. This represents a decrease when compared with the previous exam. Bowel: No obstruction or bowel wall thickening. Peritoneal cavity: No ascites, collection or mesenteric inflammatory response. Bones: Stable sclerotic bony metastases, particularly the left ilium. Reproductive organs: Within normal limits. IMPRESSION: Stable right upper mass. Mild increase in left axillary lymph node. Stable anterior middle mediasti nal adenopathy. Stable liver metastases. Increased size of splenic metastasis. Increased size of left adrenal metas tasis. Mild decrease in left iliac chain adenopathy. Decreased size of prostate mass. RADIATION DOSE DELIVERED: Total DLP DATA REPOSITORY: All CT scans at this facility are submitted to the National Radiology Data Registry (NRDR) Dose Index Registry (DIR) with the [employer] (ACR). RADIATION OPTIMIZATION: All CT scans at this facility use at least one of these dose optimization te chniques: automated exposure control; mA and/or kV adjustment per patient size (includes targeted exa ms where dose is matched to clinical indication); or iterative reconstruction.
== END 2020-04-16 01:42 ==
PROVIDERS: PCP Family Medicine; Visit Provider Internal Medicine Hematology & Oncology
DX: C34.11 Malignant neoplasm of upper lobe, right bronchus or lung (principal); R59.0 Localized enlarged lymph nodes; C78.7 Secondary malignant neoplasm of liver and intrahepatic bile duct; C78.89 Secondary malignant neoplasm of other digestive organs; C79.70 Secondary malignant neoplasm of unspecified adrenal gland; Z79.899 Other long term (current) drug therapy
CPT/HCPCS: 36415; 74177; 80053; 71260; 83615; 85025; J3490; Q9967

== ENCOUNTER 2020-04-16 09:00 | Outpatient (RCR) | payer MEDICARE, SELFPAY ==
[2020-04-09 08:27] LABS: Abs Immature Grans 0.79 k/cumm (0.0-0.09); HGB 8.7 g/dL (13.5-17.5); Mean Corpuscular Hemoglobin 24.2 pg (27.0-33.0); Mean Corpuscular Volume 80.6 fL (80-95); Mean Platelet Volume 9.4 fL (8.0-11.0); RBC Distribution Width 22.1 % (11.8-14.1); White Blood Cell Count 9.45 k/cumm (4.4-10.8)
[2020-04-09 08:39] LABS: ALT 22 U/L (16-63); AST 32 U/L (15-37); Albumin 2.9 g/dL (3.4-5.0); Alkaline Phosphatase 60 U/L (46-116); Anion Gap 13.2 mmol/L (3-11); BUN 7 mg/dL (7-18); Bilirubin, Total 0.3 mg/dL (0.2-1.0); CO2 22.8 mmol/L (21.0-32.0); CREATININE 0.94 mg/dL (0.70-1.30); Calcium 8.4 mg/dL (8.5-10.1); Chloride 101 mmol/L (98-107); Glucose 148 mg/dL (74-106); LDH 200 U/L (85-227); Potassium 3.1 mmol/L (3.5-5.1); Sodium 137 mmol/L (136-145); Total Protein 7.5 g/dL (6.4-8.2)
[2020-04-09] MEDS: Normal Saline Flush 10 ML SYR IVP (08:46)
[2020-04-09 08:53] LABS: Absolute Basophil Count 0.09 k/cumm (0.0-0.2); Absolute Eosinophil Count 0.09 k/cumm (0.0-0.7); Absolute Lymphocyte Count 1.98 k/cumm (1.2-3.4); Absolute Monocyte Count 0.47 k/cumm (0.11-0.7); Absolute Neutrophil Count 6.14 k/cumm (1.2-6.7); Anisocytosis 2+; Diff Comment Manual Differential; Hypochromasia 2+; Nucleated RBC 1 /100WBC; Ovalocytes 2+; Platelet Count 636 x1000/uL (130-400); Poikilocytes 2+; Polychromasia Present
[2020-04-16 11:52] LABS: Abs Immature Grans 0.05 k/cumm (0.0-0.09); Absolute Basophil Count 0.02 k/cumm (0.0-0.2); Absolute Eosinophil Count 0.07 k/cumm (0.0-0.7); Absolute Lymphocyte Count 1.38 k/cumm (1.2-3.4); Absolute Monocyte Count 0.48 k/cumm (0.11-0.7); Absolute Neutrophil Count 5.22 k/cumm (1.2-6.7); Basophils % 0.3; HCT 29.6 % (40.0-50.0); HGB 8.7 g/dL (13.5-17.5); Immature Grans % 0.7 %; Lymphocytes % 19.1; Mean Corp. HGB Concentration 29.4 g/dL (32.0-36.0); Mean Corpuscular Hemoglobin 23.8 pg (27.0-33.0); Mean Corpuscular Volume 81.1 fL (80-95); Mean Platelet Volume 9.4 fL (8.0-11.0); Monocytes % 6.6; Neutrophils % 72.3; Platelet Count 571 x1000/uL (130-400); RBC 3.65 m/cumm (4.50-6.00); RBC Distribution Width 22.7 % (11.8-14.1); White Blood Cell Count 7.22 k/cumm (4.4-10.8)
[2020-04-16 12:07] LABS: ALT 17 U/L (16-63); AST 25 U/L (15-37); Albumin 3.1 g/dL (3.4-5.0); Alkaline Phosphatase 66 U/L (46-116); Anion Gap 11.7 mmol/L (3-11); BUN 7 mg/dL (7-18); Bilirubin, Total 0.5 mg/dL (0.2-1.0); CO2 22.3 mmol/L (21.0-32.0); Calcium 8.6 mg/dL (8.5-10.1); Chloride 98 mmol/L (98-107); Glucose 98 mg/dL (74-106); LDH 157 U/L (85-227); Sodium 132 mmol/L (136-145); Total Protein 7.4 g/dL (6.4-8.2)
[2020-04-16] MEDS: Normal Saline Flush 10 ML SYR IVP (12:30)
== END 2020-04-20 23:59 | disposition home or self-care (01) ==
LOC: INF 09:00
PROVIDERS: PCP Family Medicine; Visit Provider Internal Medicine Hematology & Oncology
DX: Z79.899 Other long term (current) drug therapy (principal)
CPT/HCPCS: 36415; 80053; 83615; 85025

== ENCOUNTER → 2020-04-30 08:54 | Outpatient (BNVA) | payer MEDICARE, SELFPAY | PROVIDERS: PCP Family Medicine; Referring Provider Family Medicine; Visit Provider Nurse Practitioner Gerontology | DX: R33.8 Other retention of urine (principal); Z46.6 Encounter for fitting and adjustment of urinary device | CPT/HCPCS: 51702; 99213 ==

== ENCOUNTER 2020-05-08 01:21 | Outpatient (RCR) | payer MEDICARE, SELFPAY ==
[2020-05-02 09:16] LABS: Abs Immature Grans 0.04 10^3/uL (0.0-0.06); Absolute Basophil Count 0.04 10^3/uL (0.0-0.2); Absolute Lymphocyte Count 1.53 10^3/uL (1.2-3.4); Absolute Monocyte Count 0.63 10^3/uL (0.1-0.8); Absolute Neutrophil Count 3.27 10^3/uL (1.2-6.7); Basophils % 0.7; Eosinophils % 6.8; HCT 31.8 % (40.0-50.0); HGB 9.4 g/dL (13.5-17.5); Immature Grans % 0.7; Lymphocytes % 25.9; MCH 24.2 pg (27.0-33.0); MCHC 29.6 % (32.0-36.0); MPV 9.4 fL (8.0-11.0); Monocytes % 10.7; Neutrophils % 55.2; Nucleated RBC 0 %; Platelet Count 398 10^3/uL (130-400); RBC 3.88 10^6/uL (4.36-5.78); RDW 23.7 % (11.8-14.1); RDW-SD 70.4 fL; WBC 5.91 10^3/uL (4.4-10.8)
[2020-05-02] MEDS: Normal Saline Flush 10 ML SYR IVP (09:22)
[2020-05-02 09:34] LABS: ALT 18 U/L (16-63); AST 49 U/L (15-37); Albumin 3.1 g/dL (3.4-5.0); Alkaline Phosphatase 92 U/L (46-116); Anion Gap 10.4 mmol/L (3-11); Anisocytosis 2+; BUN 7 mg/dL (7-18); Bilirubin, Total 0.5 mg/dL (0.2-1.0); CO2 21.6 mmol/L (21.0-32.0); CREATININE 0.81 mg/dL (0.70-1.30); Calcium 8.4 mg/dL (8.5-10.1); Chloride 103 mmol/L (98-107); Diff Comment RBC Morph Reviewed; Glucose 126 mg/dL (74-106); LDH 327 U/L (85-227); Polychromasia Present; Potassium 4.4 mmol/L (3.5-5.1); Sodium 135 mmol/L (136-145); Total Protein 7.2 g/dL (6.4-8.2)
[2020-05-02 09:35] LABS: Poikilocytes 1+
[2020-05-08 09:00] LABS: Abs Immature Grans 0.04 10^3/uL (0.0-0.06); Absolute Basophil Count 0.02 10^3/uL (0.0-0.2); Absolute Eosinophil Count 0.34 10^3/uL (0.0-0.7); Absolute Lymphocyte Count 1.15 10^3/uL (1.2-3.4); Absolute Monocyte Count 0.27 10^3/uL (0.1-0.8); Absolute Neutrophil Count 3.81 10^3/uL (1.2-6.7); Basophils % 0.4; HCT 30.7 % (40.0-50.0); HGB 9.2 g/dL (13.5-17.5); Immature Grans % 0.7; Lymphocytes % 20.4; MCH 24.6 pg (27.0-33.0); MCV 82.1 fL (80-95); MPV 10.1 fL (8.0-11.0); Monocytes % 4.8; Neutrophils % 67.7; Nucleated RBC 0 %; Platelet Count 336 10^3/uL (130-400); RBC 3.74 10^6/uL (4.36-5.78); RDW 22.4 % (11.8-14.1); RDW-SD 66.3 fL; WBC 5.63 10^3/uL (4.4-10.8)
[2020-05-08] MEDS: Normal Saline Flush 10 ML SYR IVP (09:01)
[2020-05-08 09:19] LABS: ALT 18 U/L (16-63); AST 44 U/L (15-37); Albumin 3.2 g/dL (3.4-5.0); Alkaline Phosphatase 86 U/L (46-116); Anion Gap 11.2 mmol/L (3-11); BUN 8 mg/dL (7-18); Bilirubin, Total 0.5 mg/dL (0.2-1.0); CO2 21.8 mmol/L (21.0-32.0); CREATININE 0.84 mg/dL (0.70-1.30); Calcium 8.8 mg/dL (8.5-10.1); Chloride 102 mmol/L (98-107); Glucose 133 mg/dL (74-106); LDH 260 U/L (85-227); Potassium 3.8 mmol/L (3.5-5.1); Sodium 135 mmol/L (136-145); Total Protein 7.4 g/dL (6.4-8.2)
[2020-05-08 09:24] LABS: Anisocytosis 2+; Diff Comment RBC Morph Reviewed
[2020-05-08 09:25] LABS: Hypochromasia 2+; Poikilocytes 1+; Polychromasia Present
== END 2020-05-21 23:59 | disposition home or self-care (01) ==
LOC: INF 01:21
PROVIDERS: PCP Family Medicine; Visit Provider Internal Medicine Hematology & Oncology
DX: Z79.899 Other long term (current) drug therapy (principal)
CPT/HCPCS: 36415; 80053; 83615; 85025

== ENCOUNTER 2020-06-12 00:51 | Outpatient (CLI) | payer MEDICARE, MEDICAID, SELFPAY ==
[2020-06-12] MEDS: Normal Saline - Diluent 50 ML VIAL IV (09:37)
[2020-06-12] MEDS: Omnipaque 350 MG/ML 100 ML BTL IJ (09:37)
--- NOTE | 2020-06-12 09:38 | DI.CT_ITS ---
EXAM: CT CHEST/ABD/PEL W CLINICAL HISTORY: H/O SMALL CELL LUNG CA,C34.90, BONE METS, RESTAGING EXAM,C79.51 TECHNIQUE: Imaging Protocol: Axial computed tomography images with coronal and sagittal reformatted images were created and reviewed CONTRAST MATERIAL: Intravenous: Omnipaque 350 Contrast volume:100 mL Oral: No COMPARISON: CT CT CHEST/ABD/PEL W from 04/16/2020 FINDINGS: CHEST: Tracheobronchial tree: Patent where visualized. Mediastinum and Edwina: Extensive mediastinal, hilar, left axillary and supraclavicular adenopathy. Th e left axillary lymph node is unchanged in size at 1.5 cm. The subcarinal lymph node measures 2.7 cm compared with 2.6 cm on the prior examination. The largest supraclavicular lymph node is seen on th e left and measures 1.9 cm compared with 2.0 cm on the prior examination. Pulmonary parenchyma: The right upper lobe mass measures 3.3 x 2.8 cm compared with 3.2 x 2.8 cm. No new pulmonary masses are present. No consolidation is seen. Centrilobular emphysematous changes ar e present. Pleura: No effusion or pneumothorax. Heart: The heart is not dilated. Moderate coronary artery calcification is present. No pericardial e ffusion. Aorta: Atherosclerosis. Dilatation of the ascending and descending thoracic aorta is again noted. Lymph nodes: Please see above. Bones:Osseous metastatic disease is again seen in the sternum, ribs and thoracic spine. Soft tissues: Unremarkable. ABDOMEN: Liver: Normal density. Multiple hepatic metastases. The lesion in the anterior segment of the right upper lobe superiorly measures 3.6 cm in transverse diameter. This compares with 2.8 cm on the prior examination. The large lesion in the posterior segment of the right lower lobe inferiorly now measu res 3.1 cm. This compares with 2.3 cm on the prior examination. Portal, Superior Mesenteric, and Splenic Veins: Unremarkable. Gallbladder and Biliary Tract: No radiodense calculus or dilation. Pancreas: Normal density, no abnormal calcifications or inflammatory process. Spleen: The lesion in the superior aspect of the spleen now measures 2.0 cm compared with 1.4 cm. Adrenals: The left adrenal mass measures 3.8 x 2.7 cm compared with 3.8 x 2.4 cm. The right adrenal mass is stable. Kidneys: Normal size, contour and axis. No radiodense stones or obstructive uropathy. Tiny hypodensit ies are seen in the kidneys. They are too small for further characterization but likely reflect smal l cysts. Abdominal Aorta: Abdominal portion non-dilated. Atherosclerosis. Bowel: No obstruction or bowel wall thickening. No evidence of acute appendicitis. Peritoneal Cavity: No ascites, collection or mesenteric inflammatory response. Lymph Nodes: Persistent retroperitoneal and iliac adenopathy. There are again seen upper abdominal a denopathy retrocrural adenopathy. Bones: Degenerative changes are seen in the spine. Stable sclerotic metastases are noted. Soft Tissues: Small fat containing umbilical hernia. PELVIS: Bladder: There is a Batres catheter in place. The urinary bladder is again shown with significant jessica dder wall thickening. Reproductive Organs: Prostate gland is markedly enlarged. There is again seen and collection of air in the posterior aspect of the prostate gland. There is a decrease in the fluid previously noted. Lymph Nodes: Please see above. Bones: Please see above. IMPRESSION: 1. Interval increase in size of hepatic adrenal and splenic metastases. Persistent osseous metastati c disease. Distant abdominal pelvic adenopathy. 2. Marked prostatic hypertrophy. Interval decrease in size of the air and fluid within the posterior prostate gland. Marked thickening of the wall of the urinary bladder which may reflect sequelae of chronic bladder outlet obstruction. 3. Stable right upper lobe pulmonary mass and thoracic adenopathy. 4. RADIATION DOSE DELIVERED: 1,326.54mGy.cm Total DLP DATA REPOSITORY: All CT scans at this facility are submitted to the National Radiology Data Registry (NRDR) Dose Index Registry (DIR) with the [employer] (ACR). RADIATION OPTIMIZATION: All CT scans at this facility use at least one of these dose optimization te chniques: automated exposure control; mA and/or kV adjustment per patient size (includes targeted exa ms where dose is matched to clinical indication); or iterative reconstruction.
== END 2020-06-12 01:11 ==
PROVIDERS: PCP Family Medicine; Visit Provider Nurse Practitioner Adult Health
DX: C79.51 Secondary malignant neoplasm of bone (principal); C34.11 Malignant neoplasm of upper lobe, right bronchus or lung; C78.7 Secondary malignant neoplasm of liver and intrahepatic bile duct; C78.89 Secondary malignant neoplasm of other digestive organs; N40.0 Benign prostatic hyperplasia without lower urinary tract symptoms
CPT/HCPCS: 74177; 80053; 71260; 82728; 83540; 83550; 83615; 85025; J3490

== ENCOUNTER 2020-06-18 02:08 | Outpatient (RCR) | payer MEDICARE, MEDICAID, SELFPAY ==
[2020-05-24] MEDS: Normal Saline Flush 10 ML SYR IVP (07:45)
[2020-05-24 08:07] LABS: Abs Immature Grans 0.05 10^3/uL (0.0-0.06); Absolute Basophil Count 0.03 10^3/uL (0.0-0.2); Absolute Eosinophil Count 0.32 10^3/uL (0.0-0.7); Absolute Lymphocyte Count 1.23 10^3/uL (1.2-3.4); Absolute Monocyte Count 0.89 10^3/uL (0.1-0.8); Absolute Neutrophil Count 3.83 10^3/uL (1.2-6.7); Basophils % 0.5; HCT 32.8 % (40.0-50.0); HGB 10.2 g/dL (13.5-17.5); Immature Grans % 0.8; Lymphocytes % 19.4; MCHC 31.1 % (32.0-36.0); MCV 80.4 fL (80-95); MPV 9.7 fL (8.0-11.0); Neutrophils % 60.3; Nucleated RBC 0 %; Platelet Count 388 10^3/uL (130-400); RBC 4.08 10^6/uL (4.36-5.78); RDW 22.4 % (11.8-14.1); RDW-SD 64.7 fL; WBC 6.35 10^3/uL (4.4-10.8)
[2020-05-24 08:14] LABS: ALT 25 U/L (16-63); AST 57 U/L (15-37); Alkaline Phosphatase 149 U/L (46-116); Anion Gap 11.9 mmol/L (3-11); BUN 11 mg/dL (7-18); Bilirubin, Total 0.6 mg/dL (0.2-1.0); CO2 22.1 mmol/L (21.0-32.0); CREATININE 0.82 mg/dL (0.70-1.30); Calcium 8.6 mg/dL (8.5-10.1); Chloride 98 mmol/L (98-107); Glucose 115 mg/dL (74-106); LDH 195 U/L (85-227); Potassium 3.6 mmol/L (3.5-5.1); Sodium 132 mmol/L (136-145); Total Protein 7.3 g/dL (6.4-8.2)
[2020-05-24 09:06] LABS: Anisocytosis 2+; Diff Comment RBC Morph Reviewed; Polychromasia Present
[2020-05-24 09:07] LABS: Poikilocytes 1+
[2020-05-31] MEDS: Normal Saline Flush 10 ML SYR IVP (08:40)
[2020-05-31 09:00] LABS: Abs Immature Grans 0.06 10^3/uL (0.0-0.06); Absolute Basophil Count 0.04 10^3/uL (0.0-0.2); Absolute Eosinophil Count 0.06 10^3/uL (0.0-0.7); Absolute Lymphocyte Count 1.45 10^3/uL (1.2-3.4); Absolute Monocyte Count 0.48 10^3/uL (0.1-0.8); Absolute Neutrophil Count 3.44 10^3/uL (1.2-6.7); Basophils % 0.7; Eosinophils % 1.1; HCT 32.3 % (40.0-50.0); HGB 9.8 g/dL (13.5-17.5); Immature Grans % 1.1; Lymphocytes % 26.2; MCH 24.3 pg (27.0-33.0); MCHC 30.3 % (32.0-36.0); MCV 80.1 fL (80-95); MPV 9.7 fL (8.0-11.0); Monocytes % 8.7; Neutrophils % 62.2; Nucleated RBC 0 %; Platelet Count 507 10^3/uL (130-400); RBC 4.03 10^6/uL (4.36-5.78); RDW 21.7 % (11.8-14.1); RDW-SD 63.6 fL; WBC 5.53 10^3/uL (4.4-10.8)
[2020-05-31 09:12] LABS: Anisocytosis 2+; Diff Comment RBC Morph Reviewed; Poikilocytes 1+
[2020-05-31 09:14] LABS: ALT 25 U/L (16-63); AST 42 U/L (15-37); Albumin 3.2 g/dL (3.4-5.0); Alkaline Phosphatase 159 U/L (46-116); Anion Gap 11.3 mmol/L (3-11); BUN 11 mg/dL (7-18); Bilirubin, Total 0.5 mg/dL (0.2-1.0); CO2 22.7 mmol/L (21.0-32.0); CREATININE 0.91 mg/dL (0.70-1.30); Calcium 8.9 mg/dL (8.5-10.1); Chloride 98 mmol/L (98-107); Glucose 88 mg/dL (74-106); Potassium 3.5 mmol/L (3.5-5.1); Sodium 132 mmol/L (136-145); Total Protein 7.4 g/dL (6.4-8.2)
== END 2020-06-20 23:59 | disposition home or self-care (01) ==
LOC: INF 02:08
PROVIDERS: PCP Family Medicine; Visit Provider Internal Medicine Hematology & Oncology
DX: Z79.899 Other long term (current) drug therapy (principal)
CPT/HCPCS: 36415; 80053; 83615; 85025

== ENCOUNTER 2020-06-19 12:32 | Inpatient (IN) | payer MEDICARE, MEDICAID, SELFPAY ==
[2020-06-19] VITALS (35 sets, daily range): BP systolic 107–163; BP diastolic 66–94; PULSE 61–116; RESP 14–22; TEMP 36.4–36.8; O2SAT 94–100
[2020-06-19] MEDS: Lidocaine 2% Jelly 6 ML SYR (12:45)
--- NOTE | 2020-06-19 12:45 | RT.EKG_ITS ---
APPROVED REPORT Exam: Resting ECG Patient Location: E HR:98 bpm ECG Measurements Heart Rate 98 AXIS DE 188 P 73 QRSd 87 QRS -27 QT 378 T 67 QTc 483 Conclusion Sinus rhythm. Anterior infarct, old...Q >40mS
--- NOTE | 2020-06-19 12:45 | DI.CT_ITS ---
EXAM: CT HEAD WO CLINICAL HISTORY: UNRESPONSIVE AT HOME, METASTATIC LUNG CANCER. TECHNIQUE: Imaging Protocol: Axial computed tomography images with coronal and sagittal reformatted images were created and reviewed COMPARISON: MR MR BRAIN WO/W from 07/15/2019 FINDINGS: There are innumerable rounded, mainly hyperechoic foci seen scattered through both cerebral hemispher es as well as the cerebellum and brainstem. There are some cystic areas within the masses. The find ings are highly suspicious for metastatic disease. No abnormality was seen on the previous brain MRI . There is no evidence of midline shift or mass effect. There is mild edema seen superiorly in the right parietal lobe. The ventricles appear unchanged in size. The orbits, sinuses and mastoid air c ells are unremarkable. No destructive lesions are seen in the skull. IMPRESSION: Numerous metastatic lesions, both cerebral hemispheres, brainstem as well as cerebellum. There is no evidence of hemorrhage or infarct. RADIATION DOSE DELIVERED: 805.59mGy.cm Total DLP DATA REPOSITORY: All CT scans at this facility are submitted to the National Radiology Data Registry (NRDR) Dose Index Registry (DIR) with the [employer] (ACR). RADIATION OPTIMIZATION: All CT scans at this facility use at least one of these dose optimization te chniques: automated exposure control; mA and/or kV adjustment per patient size (includes targeted exa ms where dose is matched to clinical indication); or iterative reconstruction.
--- NOTE | 2020-06-19 12:45 | DI.RAD_ITS ---
EXAM: XR CHEST 2V PA LATERAL CLINICAL HISTORY: Unresponsive at home, metastatic lung cancer TECHNIQUE: 2D digital imaging was performed. COMPARISON: CR XR CHEST 2V PA LATERAL from 03/25/[address] CHEST/ABD/PEL W from 06/12/2020 FINDINGS: A right upper lobe mass is again noted. Heart size is is within normal limits. The aorta is tortuou s and shows calcification. No new mass, infiltrate or effusion is seen. IMPRESSION: Right upper lobe mass, consistent with the patient's known history lung cancer. No acute abnormality .
--- NOTE | 2020-06-19 12:55 | ED.GENADUL_ITS ---
Discharge Plan Disposition Patient Disposition: [facility] INPATIENT Condition: Stable Discharge Details Clinical Impression: Lung cancer metastatic to brain Admit Date/Time: 06/19/20 15:19 Admit Provider: Ronna Man Attending Provider: Ronna Man Primary Care Provider: Reginald Roca ED Provider: Aden Stack Medical Decision Making 75-year-old male presents from home via EMS. He has stage IV lung cancer. He was found confused at home by a neighbor. Patient states to me that he felt weakness and lightheadedness. He did not have syncope. He states he has had nausea and poor p.o. intake over days time. No chest pain or palpitations. Patient was found with a question of partially empty oxycodone pill bottles. He states to me he did not take extra medicine and does not have thoughts of harming himself or others. Admits to some depressed mood since the loss of his and also due to his current metastatic lung cancer. Records reviewed and note most recent imaging study showed disease progression. He is felt to have an incurable malignancy and goals of treatment are to be life improvement and survival prolongation. In the emergency department the patient is alert and interactive. He states he feels weak and lightheaded due to decreased p.o. intake. IV access established, fluids initiated, patient referred for laboratory study, CT scan of the head as well as screening chest x-ray given his weakness at home. Labs: White count 7, hematocrit 36, platelets aggregated. Sodium 135, potassium 3.3, chloride 98, bicarb 25, BUN 18, creatinine 0.9. AST 60, ALT 19, troponin negative. Chest x-ray with known right upper lobe mass. CT scan of the head with numerous areas of metastatic disease including both hemispheres cerebellum and brainstem. Patient has had some time to discuss with his daughter Kailey and states he no longer wishes to pursue any further chemotherapy but wishes to focus on comfort. His family does not feel he is safe to return to home today and I do feel it is reasonable to admit him for gentle fluid resuscitation, electrolyte replacement, palliative care consultation. Lab Data Lab results reviewed: Yes I reviewed the patient's lab results. Labs: Laboratory Results - last 24 hr 06/19/20 06/19/20 06/19/20 12:50 12:50 12:50 WBC 7.87 RBC 4.32 L Hgb 11.2 L Hct 36.1 L MCV 83.6 MCH 25.9 L MCHC 31.0 L RDW 24.4 H Plt Count MPV 11.4 H Immature Gran % 0.9 Neutrophils % 75.0 Lymphocytes % 12.2 Monocytes % 10.4 Eosinophils % 1.1 Basophils % 0.4 Nucleated RBC % 0 Absolute Neutrophils 5.90 Absolute Lymphocytes 0.96 L Absolute Monocytes 0.82 H Absolute Eosinophils 0.09 Absolute Basophils 0.03 RBC Morphology See below Polychromasia Present Hypochromasia 2+ Poikilocytosis 2+ Anisocytosis 3+ Microcytosis 2+ Sodium 135 L Potassium 3.3 L Chloride 98 Carbon Dioxide 25.0 Anion Gap 12.0 H BUN 18 Creatinine 0.92 Estimated GFR/1.73 m2 >= 60.00 Glucose 115 H Calcium 8.4 L Magnesium 1.8 Total Bilirubin 0.5 AST 60 H ALT 19 Alkaline Phosphatase 193 H Ammonia < 10 L Troponin I < 0.05 Total Protein 7.4 Albumin 3.2 L Urine Color Urine Clarity Urine pH Ur Specific [place] Urine Protein Urine Ketones Urine Blood Urine Nitrite Urine Bilirubin Urine Urobilinogen Ur Leukocyte Esterase Urine Glucose Urine Opiates Screen Urine Methadone Screen Ur Barbiturates Screen Ur Tricyclics Screen Ur Amphetamines Screen U Benzodiazepines Scrn Urine Cocaine Screen Ur THC Screen Ethyl Alcohol < 3.0 06/19/20 06/19/20 13:40 13:40 WBC RBC Hgb Hct MCV MCH MCHC RDW Plt Count MPV Immature Gran % Neutrophils % Lymphocytes % Monocytes % Eosinophils % Basophils % Nucleated RBC % Absolute Neutrophils Absolute Lymphocytes Absolute Monocytes Absolute Eosinophils Absolute Basophils RBC Morphology Polychromasia Hypochromasia Poikilocytosis Anisocytosis Microcytosis Sodium Potassium Chloride Carbon Dioxide Anion Gap BUN Creatinine Estimated GFR/1.73 m2 Glucose Calcium Magnesium Total Bilirubin AST ALT Alkaline Phosphatase Ammonia Troponin I Total Protein Albumin Urine Color Dark yellow Urine Clarity Cloudy Urine pH 6.0 Ur Specific [place] >= 1.030 H Urine Protein 100 H Urine Ketones 15 H Urine Blood Large H Urine Nitrite Positive H Urine Bilirubin Small H Urine Urobilinogen 1.0 H Ur Leukocyte Esterase Small H Urine Glucose Negative Urine Opiates Screen Positive A Urine Methadone Screen Negative Ur Barbiturates Screen Negative Ur Tricyclics Screen Negative Ur Amphetamines Screen Negative U Benzodiazepines Scrn Negative Urine Cocaine Screen Negative Ur THC Screen Negative Ethyl Alcohol [facility] General Mode of arrival: EMS . Date/Time Provider Initiated Documentation: 06/19/20 12:37 . Limitations to Documentation: no limitations . Information obtained by: patient and EMS . History of Present Illness 75 year old M presents to the emergency department with the chief complaint of Unresponsive at home, now improved, described as moderate, Patient reports no radiation. Patient started experiencing this hour(s) and it has been now resolved. No relieving factors improve symptom(s), No exacerbating factors reported . Patient notes loss of appetite, weakness and other ([place] lightheaded, denies loss of consciousness); denies chest pain, cough, diaphoresis, fever/chills and headaches. Patient did receive the following treatments prior to arrival, none Related Data Home Medications Medication Instructions Recorded Confirmed Centrum Silver 1 tab PO DAILY 01/31/19 06/19/20 aspirin 81 mg chewable tablet 81 mg PO DAILY 06/09/19 06/19/20 hydrochlorothiazide 50 mg tablet 25 mg PO DAILY tab 02/16/20 06/19/20 losartan 100 mg tablet 50 mg PO DAILY tab 02/16/20 06/19/20 tamsulosin 0.4 mg capsule 0.8 mg PO DAILY #180 cap 02/16/20 06/19/20 cephalexin 500 mg capsule 500 mg PO TID #21 cap 02/20/20 06/19/20 calcium carbonate 600 mg-vitamin tab PO 06/01/20 D3 1,000 unit-vitamin K2 90 mcg tab oxycodone 5 mg tablet 5 mg PO Q8H PRN 06/01/20 06/19/20 prochlorperazine maleate 10 mg 10 mg PO Q8H PRN 06/01/20 06/19/20 tablet Previous Rx's Medication Instructions Recorded tamsulosin 0.4 mg capsule 0.8 mg PO DAILY #180 cap 02/16/20 cephalexin 500 mg capsule 500 mg PO TID #21 cap 02/20/20 Allergies Allergy/AdvReac Type Severity Reaction Status Date / Time bee stings Allergy Uncoded 06/19/20 12:50 hymenoptera allergenic Allergy Uncoded 06/19/20 12:50 extract General Stated Complaint: AMS/LOC DILIP: 2 Review of Systems Narrative: No fever, cough, chest pain. Nauseated and weak. Poor p.o. intake. 8 systems reviewed and otherwise negative. Patient states he does not wish to kill himself. [facility] Medical History (Updated 06/19/20 @ 15:20 by Aden Stack MD) BPH (benign prostatic hyperplasia) Hypertension Small cell carcinoma STEMI (ST elevation myocardial infarction) Surgical History H/O heart artery stent Family History Other Hypertension Social History Smoking/Tobacco Use Status: Current every day Alcohol Intake: never Substance use type: does not use What type of physical activity do you participate in: walking Duration: 45-60 minutes/day Frequency: daily Do you feel safe at home: Yes Do you feel safe in your relationship?: Yes Exam Narrative Exam Narrative: GEN: awake, alert,. Pleasant, interactive. Thin. HEAD: Normocephalic, atraumatic ENT: Mucous membranes dry, oropharynx edentulous, External ear exam unremarkable EYES: PERRL, EOMI NECK: Full ROM, no NETTIE, no menigismus CHEST/RESP: Nontender, clear to auscultation bilateral, no wheeze/rhonchi/rales CARDIOVASCULAR: RRR, no murmur, rub suyapa. 2+ Rad pulse bilateral ABDOMEN: Soft, nontender, no mass. +Bowel sounds. Batres catheter in place but not hooked up to drainage bag. EXT: Full ROM, no edema, no rash. Extremity muscle atrophy Neuro: Grossly normal neurologic exam, conversant, interactive. Psych: Speech fluent, thoughts congruent, affect flat Course Vital Signs Vital signs: Vital Signs Temperature 36.4 C 06/19/20 12:37 Pulse 111 H 06/19/20 12:37 Respiratory Rate 18 06/19/20 12:37 Blood Pressure 116/84 06/19/20 12:37 Pulse Oximetry 99 06/19/20 12:37 Temperature 36.4 C 06/19/20 12:37 Temperature Source Oral 06/19/20 12:37 Pulse 111 H 06/19/20 12:37 Respiratory Rate 18 06/19/20 12:37 Respiratory Effort Non-Labored 06/19/20 12:37 Blood Pressure 116/84 06/19/20 12:37 Blood Pressure Position Sitting 06/19/20 12:37 Pulse Oximetry 99 06/19/20 12:37 Oxygen Delivery Method Room Air 06/19/20 12:37 Oxygen Flow Rate 0 06/19/20 12:37 Pain Level 0 06/19/20 12:37
[2020-06-19] MEDS: Normal Saline 1,000 ML 1000 ML IV (13:00)
[2020-06-19 13:19] LABS: Abs Immature Grans 0.07 10^3/uL (0.0-0.06); Absolute Basophil Count 0.03 10^3/uL (0.0-0.2); Absolute Eosinophil Count 0.09 10^3/uL (0.0-0.7); Absolute Lymphocyte Count 0.96 10^3/uL (1.2-3.4); Absolute Monocyte Count 0.82 10^3/uL (0.1-0.8); Basophils % 0.4; Eosinophils % 1.1; HCT 36.1 % (40.0-50.0); HGB 11.2 g/dL (13.5-17.5); Immature Grans % 0.9; Lymphocytes % 12.2; MCH 25.9 pg (27.0-33.0); MCV 83.6 fL (80-95); MPV 11.4 fL (8.0-11.0); Monocytes % 10.4; Nucleated RBC 0 %; RBC 4.32 10^6/uL (4.36-5.78); RDW 24.4 % (11.8-14.1); RDW-SD 72.4 fL; WBC 7.87 10^3/uL (4.4-10.8)
[2020-06-19 13:25] LABS: Ammonia < 10 umol/L (11-32)
[2020-06-19 13:46] LABS: ALT 19 U/L (16-63); AST 60 U/L (15-37); Albumin 3.2 g/dL (3.4-5.0); Alkaline Phosphatase 193 U/L (46-116); BUN 18 mg/dL (7-18); Bilirubin, Total 0.5 mg/dL (0.2-1.0); CREATININE 0.92 mg/dL (0.70-1.30); Calcium 8.4 mg/dL (8.5-10.1); Chloride 98 mmol/L (98-107); Glucose 115 mg/dL (74-106); Magnesium 1.8 mg/dL (1.8-2.4); Potassium 3.3 mmol/L (3.5-5.1); Sodium 135 mmol/L (136-145); Total Protein 7.4 g/dL (6.4-8.2)
[2020-06-19] MEDS: Normal Saline Flush 10 ML SYR IVP ×2 (13:46→17:28)
[2020-06-19 13:47] LABS: Bilirubin Small (Negative); Blood Large (Negative); Clarity Cloudy (Clear); Glucose Negative (Negative); Ketones 15 mg/dL (Negative); Leukocyte Esterase Small (Negative); Nitrite Positive (Negative); Specific Gravity >= 1.030 (1.005-1.025)
[2020-06-19 13:48] LABS: Troponin I < 0.05 ng/mL (<0.06)
[2020-06-19 13:50] LABS: Anisocytosis 3+; Diff Comment RBC Morph Reviewed; Hypochromasia 2+; Microcytosis 2+; Polychromasia Present
[2020-06-19 13:53] LABS: Poikilocytes 2+
[2020-06-19 13:56] LABS: *AMPHETAMINES SCREEN URINE Negative (Negative); *BARBITURATES SCREEN URINE Negative (Negative); *BENZODIAZEPINES SCREEN URINE Negative (Negative); Cannabinoids THC Negative (Negative); Cocaine Screen,Urine Negative (Negative); METHADONE URINE SCREEN Negative (Negative); OPIATES URINE SCREEN POSITIVE (Negative)
[2020-06-19 13:57] LABS: ETHANOL BLOOD < 3.0 mg/dL (<3)
[2020-06-19 13:57] LABS: Tricyclic Antidepressants Negative (Negative)
[2020-06-19 14:00] LABS: Bacteria Many HPF (Negative); Mucus Heavy (Negative); RBC >50 HPF (0-2); WBC >50 HPF (0-5)
[2020-06-19 14:01] LABS: C & S Indicated? Yes
[2020-06-19] MEDS: POTASSIUM CHLORIDE/0.9% NACL 1,000 ML 100 MEQ IV (15:23)
--- NOTE | 2020-06-19 15:31 | HPE_ITS ---
Date of service: 06/19/20 Time of Service: 16:50 Assessment and Plan Assessment and plan (1) Lung cancer metastatic to brain: Status: Chronic Assessment and plan: Stage IV small cell lung ca; Diagnosis of brain mets is new on this presentation. THe patient was initiated on keppra and decadron. Palliative care is consulted as well as hospice. PT is consulted for assistive device recommendations. (2) Encephalopathy acute: Status: Acute Assessment and plan: Likely due to above (3) Unwitnessed fall: Status: Acute Assessment and plan: Also, likely due to above. PT consulted. As above (4) UTI (urinary tract infection): Status: Acute Assessment and plan: Associated with indwelling contreras catheter for urinary retention due to BPH; UTI was present on admission. Contreras changed. Initiated on empiric ceftriaxone and IVF. (5) Failure to thrive: Status: Acute Assessment and plan: Consult palliative care and hospice. (6) DVT prophylaxis: Status: Acute Assessment and plan: Chemical DVT ppx is contraindicated in setting of brain mets that were not irradiated. (7) Discharge planning issues: Status: Acute Assessment and plan: DNR/DNI. Palliative care and hospice consulted. History of Present Illness History of Present Illness Chief Complaint: Patient was found down on the floor, confused Narrative: Mr Schafer is a 75 year old male with PMHx of Stage IV small cell lung cancer, s/p chemo, but felt to be incurable at this time, as well as h/o CAD, hypertension, hyperlipidemia, and urinary retention s/p indwelling contreras catheter, who was brought in to [facility] ED today by ambulance after being found down by his daughter, shane. The patient has poor recollection of the events, but does not think he had fainted. He states he hasn't been eating or drinking at home - things just don't taste good, and he has not had an appetite. He sometimes feels wobbly on his feet. He has had some dry heaving, but has not had any actual vomiting. He denies headaches or visual changes. His ED workup revealed multiple brain metastases and a UTI. The patient's stated to the ED provider that he is interested in dying at home, but would accept treatment for his UTI and dehydration in the hospital. Therefore, the hospitalist service was asked to admit the patient for further care. The patient's case was discussed with [place] Azar [place] [facility] recommended starting the patient on prophylactic keppra and decadron. Review of Systems Narrative: The patient specifically denied having hemoptysis or falls other than today's fall at home. All systems reviewed & are unremarkable except as noted in HPI and below PFSH Medical History (Updated 06/19/20 @ 17:44 by Ronna Man MD) BPH (benign prostatic hyperplasia) Hypertension Small cell carcinoma STEMI (ST elevation myocardial infarction) Surgical History H/O heart artery stent Family History Other Hypertension Social History Smoking/Tobacco Use Status: Current every day Alcohol Intake: never Substance use type: does not use What type of physical activity do you participate in: walking Duration: 45-60 minutes/day Frequency: daily Do you feel safe at home: Yes Do you feel safe in your relationship?: Yes Meds Home Medications and Allergies Home Medications Medication Instructions Recorded Confirmed Type Centrum Silver 1 tab PO DAILY 01/31/19 06/19/20 History aspirin 81 mg chewable tablet 81 mg PO DAILY 06/09/19 06/19/20 History hydrochlorothiazide 50 mg tablet 25 mg PO DAILY tab 02/16/20 06/19/20 History losartan 100 mg tablet 50 mg PO DAILY tab 02/16/20 06/19/20 History tamsulosin 0.4 mg capsule 0.8 mg PO DAILY #180 cap 02/16/20 06/19/20 Rx cephalexin 500 mg capsule 500 mg PO TID #21 cap 02/20/20 06/19/20 Rx calcium carbonate 600 mg-vitamin tab PO 06/01/20 History D3 1,000 unit-vitamin K2 90 mcg tab oxycodone 5 mg tablet 5 mg PO Q8H PRN 06/01/20 06/19/20 History prochlorperazine maleate 10 mg 10 mg PO Q8H PRN 06/01/20 06/19/20 History tablet Allergies Allergy/AdvReac Type Severity Reaction Status Date / Time bee stings Allergy Uncoded 06/19/20 12:50 hymenoptera allergenic Allergy Uncoded 06/19/20 12:50 extract Exam Narrative Exam Narrative: General: Pleasant elderly male who looks cachectic, A&Ox2 (knows he is in the hospital, but not that he is at [facility]), appears dehydrated, comfortable. Neurological: A&ox2, no obvious focal deficits while laying flat Psychiatric: Appropriate speech pattern/content Skin: Visible skin dry, intact HEENT: Atraumatic, normocephalic, EOMI, dry MM, clear oropharynx, no goiter or JVD Cardiovascular: RRR, no m/r/g Lungs: CTAB anteriorly Gastrointestinal: soft, nontender, nondistended Genitourinary: has a new contreras (replaced in ED) Extremities: no edema BLE's, +1 pedal pulses B Results Imaging Additional studies: CXR: Right upper lobe mass, consistent with the patient's known history lung cancer. No acute abnormality. CT head w/o contrast: Numerous metastatic lesions, both cerebral hemispheres, b rainstem as well as cerebellum. There is no evidence of hemorrhage or infarct. EKG: Sinus tach, HR 98, nonspecific ST-T changes, as well as old anterior infarct. Labs Result diagrams: 06/19/20 12:50 06/19/20 12:50 Labs: Laboratory Results - last 24 hr 06/19/20 06/19/20 06/19/20 12:50 12:50 12:50 WBC 7.87 RBC 4.32 L Hgb 11.2 L Hct 36.1 L MCV 83.6 MCH 25.9 L MCHC 31.0 L RDW 24.4 H Plt Count MPV 11.4 H Immature Gran % 0.9 Neutrophils % 75.0 Lymphocytes % 12.2 Monocytes % 10.4 Eosinophils % 1.1 Basophils % 0.4 Nucleated RBC % 0 Absolute Neutrophils 5.90 Absolute Lymphocytes 0.96 L Absolute Monocytes 0.82 H Absolute Eosinophils 0.09 Absolute Basophils 0.03 RBC Morphology See below Polychromasia Present Hypochromasia 2+ Poikilocytosis 2+ Anisocytosis 3+ Microcytosis 2+ Sodium 135 L Potassium 3.3 L Chloride 98 Carbon Dioxide 25.0 Anion Gap 12.0 H BUN 18 Creatinine 0.92 Estimated GFR/1.73 m2 >= 60.00 Glucose 115 H Calcium 8.4 L Magnesium 1.8 Total Bilirubin 0.5 AST 60 H ALT 19 Alkaline Phosphatase 193 H Ammonia < 10 L Troponin I < 0.05 Total Protein 7.4 Albumin 3.2 L Urine Color Urine Clarity Urine pH Ur Specific [place] Urine Protein Urine Ketones Urine Blood Urine Nitrite Urine Bilirubin Urine Urobilinogen Ur Leukocyte Esterase Urine RBC Urine WBC Ur Epithelial Cells Urine Crystals Urine Bacteria Urine Casts Urine Mucus Ur Culture Indicated? Urine Glucose Urine Opiates Screen Urine Methadone Screen Ur Barbiturates Screen Ur Tricyclics Screen Ur Amphetamines Screen U Benzodiazepines Scrn Urine Cocaine Screen Ur THC Screen Ethyl Alcohol < 3.0 06/19/20 06/19/20 13:40 13:40 WBC RBC Hgb Hct MCV MCH MCHC RDW Plt Count MPV Immature Gran % Neutrophils % Lymphocytes % Monocytes % Eosinophils % Basophils % Nucleated RBC % Absolute Neutrophils Absolute Lymphocytes Absolute Monocytes Absolute Eosinophils Absolute Basophils RBC Morphology Polychromasia Hypochromasia Poikilocytosis Anisocytosis Microcytosis Sodium Potassium Chloride Carbon Dioxide Anion Gap BUN Creatinine Estimated GFR/1.73 m2 Glucose Calcium Magnesium Total Bilirubin AST ALT Alkaline Phosphatase Ammonia Troponin I Total Protein Albumin Urine Color Dark yellow Urine Clarity Cloudy Urine pH 6.0 Ur Specific [place] >= 1.030 H Urine Protein 100 H Urine Ketones 15 H Urine Blood Large H Urine Nitrite Positive H Urine Bilirubin Small H Urine Urobilinogen 1.0 H Ur Leukocyte Esterase Small H Urine RBC >50 H Urine WBC >50 H Ur Epithelial Cells Urine Crystals Urine Bacteria Many Urine Casts Urine Mucus Heavy Ur Culture Indicated? Yes Urine Glucose Negative Urine Opiates Screen Positive A Urine Methadone Screen Negative Ur Barbiturates Screen Negative Ur Tricyclics Screen Negative Ur Amphetamines Screen Negative U Benzodiazepines Scrn Negative Urine Cocaine Screen Negative Ur THC Screen Negative Ethyl Alcohol Last Vital Signs Temp 36.4 C 06/19/20 12:37 Pulse 96 H 06/19/20 14:01 Resp 19 06/19/20 15:04 BP 123/85 06/19/20 14:01 Pulse Ox 100 06/19/20 15:00 COVID-19 Screening Have you,or household,traveled outside [facility] in last 14 days?: No Had IN PERSON contact w/suspected or confirmed C-19 person: No
[2020-06-19] MEDS: cefTRIAXone 1 GM/50 ML BAG IVPB (15:33)
[2020-06-19] MEDS: Pantoprazole 40 MG VIAL IVP (17:28)
[2020-06-19] MEDS: Dexamethasone 10 MG/ML VIAL 16 MG IVP (17:28)
[2020-06-19] MEDS: levETIRAcetam 500 MG in Normal Saline 100 ML 400 MG IVPB (17:56)
[2020-06-19] MEDS: levETIRAcetam 500 MG TAB (20:08)
[2020-06-20] MEDS: POTASSIUM CHLORIDE/0.9% NACL 1,000 ML 100 MEQ IV ×2 (04:54→20:23)
[2020-06-20 07:05] LABS: Anion Gap 11.1 mmol/L (3-11); BUN 9 mg/dL (7-18); CO2 21.9 mmol/L (21.0-32.0); CREATININE 0.56 mg/dL (0.70-1.30); Calcium 7.3 mg/dL (8.5-10.1); Chloride 103 mmol/L (98-107); Glucose 114 mg/dL (74-106); Magnesium 1.6 mg/dL (1.8-2.4); Potassium 3.5 mmol/L (3.5-5.1); Sodium 136 mmol/L (136-145)
[2020-06-20] MEDS: Dexamethasone 4 MG TAB PO ×3 (08:22→20:17)
[2020-06-20] MEDS: levETIRAcetam 250 MG TAB 500 MG PO ×2 (08:22→20:17)
[2020-06-20 08:25] VITALS: BP 135/83; PULSE 83; RESP 18; TEMP 35.9; O2SAT 99
[2020-06-20 08:34] LABS: COVID-19 RT-PCR UVMMC Result Negative (Negative)
--- NOTE | 2020-06-20 10:04 | PT.INIE ---
Date of service: 06/20/20 Time of Service: 10:04 PT Notes Visit Reasons: FAILURE TO THRIVE, STAGE IV SMALL CELL LUNG CA WIT Physical Therapy Inpatient Initial Evaluation Date: 06/20/2020 Referring Doctor: Ronna Man MD PT Orders: PT CONSULT: Patient with stage IV cancer with multiple mets; evaluate for assistive device Precautions: Fall. Standard. Activity as tolerated. Patient Profile/Admitting Diagnosis: Reginald is a 75-year-old male who presented to the ED on 06/19/2020 with chief complaints of weakness, lightheadedness, nausea, and poor oral intake. He was found down on the floor in his home, confused. He is diagnosed with a lung carcinoma with metastasis to the brain, encephalopathy, and unwitnessed fall. PMHX: Medical History (Updated 06/19/20 @ 17:44 by Ronna Man MD) BPH (benign prostatic hyperplasia) Hypertension Small cell carcinoma STEMI (ST elevation myocardial infarction) Surgical History H/O heart artery stent Social History/Home Situation: Reginald lives alone in a private home. He has a daughter who lives nearby. He is independent with all aspects of ADLs without the need for an assistive ambulatory device nor do movement prior to admission. Equipment Owned/DME: None Subjective: Reginald reports being very tired and refused all out of bed activities today stating that he wants to rest and be left alone for now. Objective: General Observation: IV in the right UE. Batres catheter in place. Small areas of abrasions seen in bilateral knees. Mental Status: Comprehension seems to be limiting ability for meaningful interaction. With repetition of instruction patient is able to follow annual muscle testing steps for both upper and lower extremities. Pain: None reported ROM: Right Upper Extremity: Shoulder Flexion allows only about 90 degrees. Shoulder abduction allows only about 90 degrees. Elbow flexion WFL. Wrist flexion WFL. Opening and closing of hand WFL. Left Upper Extremity: Shoulder Flexion allows only about 90 degrees. Shoulder abduction allows only about 90 degrees. Elbow flexion WFL. Wrist flexion WFL. Opening and closing of hand WFL. Right Lower Extremity: Hip flexion allows only up to 10 degrees (beyond 90 degrees) while seated at edge of bed. Hip abduction WFL. Knee flexion WFL. Knee extension -30 degrees. Ankle dorsiflexion WFL. Ankle plantarflexion WFL. Left Lower Extremity: Hip flexion allows only up to 10 degrees (beyond 90 degrees) while seated at edge of bed. Hip abduction WFL. Knee flexion WFL. Knee extension -30 degrees. Ankle dorsiflexion WFL. Ankle plantarflexion WFL. Strength: Right Upper Extremity: Shoulder flexors 3-/5. Shoulder abductors 3-/5. Elbow flexors 3+/5. Elbow extensors 3+/5. Online Media Director strong. Left Upper Extremity: Shoulder flexors 3-/5. Shoulder abductors 3-/5. Elbow flexors 3+/5. Elbow extensors 3+/5. Online Media Director strong. Right Lower Extremity: Hip flexors 3-/5. Hip abductors 3+/5. Knee flexors 3+/5. Knee extensors 3-/5. Ankle dorsiflexors 3+/5. Ankle plantarflexors 3+/5. Left Lower Extremity: Hip flexors 3-/5. Hip abductors 3+/5. Knee flexors 3+/5. Knee extensors 3-/5. Ankle dorsiflexors 3+/5. Ankle plantarflexors 3+/5. Sensation: Intact as to pain and pressure on bilateral lower extremities. Bed Mobility/Transfers: Rolling NT. Will assess in the next session Supine to sit NT. Will assess in the next session Sit to supine NT. Will assess in the next session Sit to stand NT. Will assess in the next session Stand to sit NT. Will assess in the next session Bed to chair NT. Will assess in the next session Chair to bed NT. Will assess in the next session Gait: NT. Will assess in the next session Balance: Static Sitting: Normal Dynamic Sitting: Good Static Standing: Unable Dynamic Standing: Unable Special Tests: Mobility Limitations Standardized Measure [facility] AM-PAC 6 clicks Basic Mobility Inpatient Short Form: Raw Score: 12 CMS Score: 69% deficit Informed Consent/Education: Patient instructed in purpose of PT consult and plan of care. Assessment: Reginald demonstrates significant functional mobility decline assistance with all bed mobility activities. Due to fatigue and lack of motivation he refused all out of bed activities. Recommend doing all transfers with assist of 2 or mechanical lift as appropriate. Will determine appropriate visit frequency once mobility level is established for now patient will be seen once a day for the rest of the week. Patient presents with clinical signs and symptoms consistent with current/admitting diagnoses that have resulted to mobility limitations, gait instability, generalized weakness, and impairment of motor control as demonstrated by the following impairment level findings: 1. Decreased strength to B UE/LE major muscle groups 2. Impaired sitting/standing balance 3. Impaired activity tolerance 4. Limitation of joint range of motion in B UE/LE Impairments are contributing to the following functional limitations: 1. Dependent bed mobility skills 2. Increased dependence with transfers 3. Inability to safely ambulate without assistive device and physical assistance 4. Increase completion time for mobility ADL performance 5. Increased fall risk 6. Inability to negotiate steps alone safely Patient is assessed as a 39020 moderate complexity based on the following: History: 75-year-old female with impairment level findings, functional limitations, and past medical history as indicated above Examination: Demonstrable impairment in strength, balance, and mobility level with underlying impairments and functional limitations as documented above Presentation: Evolving Decision Makin moderate complexity Goals: Goals X1 week 1. Supine-Sit supervision 2. Sit-Supine supervision 3. Sit-Stand supervision 4. Stand-Sit supervision 5. Bed-Chair supervision 6. Chair-Bed supervision 7. Contact-guard assist gait on level surface with use of least restrictive device for at least 300 feet without report of pain nor dyspnea 8. Contact-guard assist stair negotiation while holding onto bilateral rails for at least 10 steps without report of pain nor dyspnea 10. Good static and dynamic standing balance/tolerance Plan of Care/Treatment Plan: 1-2x/day, 7 days/week x 1 week. Plan of care has been reviewed with the CAR GREASER providing the service under Physical Therapy direction. Initiate Physical Therapy intervention for strengthening, bed mobility, transfers, gait, stairs, balance training, use of assistive device. DISCHARGE RECOMMENDATIONS: Will assess safety of front wheeled walker use in the next session. Patient will benefit from nursing home facility placement for continued skilled physical therapy services in order to progress mobility level, strength, and balance. TREATMENT CODE/TIME: 94700 x 22 minutes beginning at 10:04 AM. Thank you for the opportunity to participate in the care of this patient. Morena Marmolejo PT, DPT, CLT [facility] [place], [place]
[2020-06-20] MEDS: MAGNESIUM SULFATE 2 GM/50 ML BAG IVPB (11:17)
--- NOTE | 2020-06-20 11:54 | INITIAL_ITS ---
- If Service Date Differs Date of service: 06/20/20 Time of Service: 11:54 Care Management Initial Assess REASON FOR HOSPITALIZATION:: Failure to thrive, Stage IV small cell lung CA PAST MEDICAL HISTORY/PAST SURGICAL HISTORY:: Medical History. BPH (benign p rostatic hyperplasia). Hypertension. Small cell carcinoma. STEMI (ST elevation myocardial infarction). Surgical History. H/O heart artery stent PREVIOUS FUNCTIONAL STATUS/SOCIAL/FAMILY SUPPORTS:: Reginald lives alone in [place]. He is recently . His daughter, Kailey lives nearby. He has been independent with his ADL's previous to this admission. CURRENT FUNCTIONAL STATUS:: Reginald was sitting up in bed eating his lunch when CM met with her. He stated that he lives at home alone currently, as his recently . He reported that he has family in [place] and his daughter, Kailey who lives nearby. His speech was hard to understand at times. CM discussed Reginald meeting with Palliative care to talk about goals of care, which he is agreeable to. He stated that he would like his daughter to be a part of that conversation. CM will continue to follow. ADVANCE DIRECTIVES:: None on file. Has patient been provided with info about the portal/API?: No Did the patient sign up for the portal?: No CODE STATUS:: DNR/DNI INSURANCE COVERAGE / FINANCIAL ISSUES:: [facility]/ [place]/ Financial assist 100% CURRENT HOME/COMMUNITY SERVICES/EQUIPMENT:: No current services or equipment. PRIMARY CARE PHYSICIAN:: Reginald Roca POTENTIAL DISCHARGE NEEDS:: Palliative/Hospice consult, goals of care discussion PATIENT/FAMILY EDUCATION NEEDS:: Review discharge instructions, discussion of goals of care. ANTICIPATED BARRIERS TO DISCHARGE:: None identified at this time. TRANSPORTATION:: Via private vehicle by family. PLAN:: Reginald will meet with Palliative care during this admission to discuss goals of care, and he may discharge home with Hospice support. CM will help coordinate discharge plan with Reginald and his family. CM will continue to follow.
--- NOTE | 2020-06-20 12:06 | PGE_ITS ---
Date of Service Date of service: 06/20/20 Time of Service: 12:11 Assessment and Plan Assessment and plan (1) Lung cancer metastatic to brain: Status: Chronic Assessment and plan: Stage IV small cell lung ca; Diagnosis of brain mets is new on this presentation. THe patient was initiated on keppra and decadron. Palliative care is consulted as well as hospice. PT is consulted for assistive device recommendations. (2) Encephalopathy acute: Status: Acute Assessment and plan: Likely due to above (3) Unwitnessed fall: Status: Acute Assessment and plan: Also, likely due to above. PT consulted. As above (4) UTI (urinary tract infection): Status: Acute Assessment and plan: Associated with indwelling contreras catheter for urinary retention due to BPH; UTI was present on admission. Contreras changed. Initiated on empiric ceftriaxone and IVF. (5) Failure to thrive: Status: Acute Assessment and plan: Consult palliative care and hospice. (6) DVT prophylaxis: Status: Acute Assessment and plan: Chemical DVT ppx is contraindicated in setting of brain mets that were not irradiated. (7) Discharge planning issues: Status: Acute Assessment and plan: DNR/DNI. Palliative care and hospice consulted. discussed with DR Man who is in agreement Subjective Subjective Patient reports: no new complaints and feels better Exam Const General: cooperative, comfortable and ill appearing chronically (older than stated age) Nutritional Appearance: thin Orientation: alert, awake and oriented x3 HENMT Head: normal to inspection, normocephalic and atraumatic Mouth: oral mucosae normal Resp Effort & Inspection: normal respiratory effort Auscultation: clear to auscultation bilaterally, diminished lung sounds bilaterally in the lower lung cano, no rhonchi and no wheezes Cardio Rate: regular rate Rhythm: regular rhythm GI Inspection: normal to inspection Palpation: soft Auscultation: normal bowel sounds Skin General skin exam: no rashes or lesions noted Neuro General: patient alert, patient awake, patient oriented x3, moves all extremities and no focal motor deficits Extrem General: normal to inspection and full ROM Objective Last Vital Signs Temp 35.9 C L 06/20/20 08:25 Pulse 83 06/20/20 08:25 Resp 18 06/20/20 08:25 BP 135/83 06/20/20 08:25 Pulse Ox 99 06/20/20 08:25 Laboratory Results - last 24 hr 06/19/20 06/19/20 06/19/20 12:50 12:50 12:50 WBC 7.87 RBC 4.32 L Hgb 11.2 L Hct 36.1 L MCV 83.6 MCH 25.9 L MCHC 31.0 L RDW 24.4 H Plt Count MPV 11.4 H Immature Gran % 0.9 Neutrophils % 75.0 Lymphocytes % 12.2 Monocytes % 10.4 Eosinophils % 1.1 Basophils % 0.4 Nucleated RBC % 0 Absolute Neutrophils 5.90 Absolute Lymphocytes 0.96 L Absolute Monocytes 0.82 H Absolute Eosinophils 0.09 Absolute Basophils 0.03 RBC Morphology See below Polychromasia Present Hypochromasia 2+ Poikilocytosis 2+ Anisocytosis 3+ Microcytosis 2+ Sodium 135 L Potassium 3.3 L Chloride 98 Carbon Dioxide 25.0 Anion Gap 12.0 H BUN 18 Creatinine 0.92 Estimated GFR/1.73 m2 >= 60.00 Glucose 115 H Calcium 8.4 L Magnesium 1.8 Total Bilirubin 0.5 AST 60 H ALT 19 Alkaline Phosphatase 193 H Ammonia < 10 L Troponin I < 0.05 Total Protein 7.4 Albumin 3.2 L Urine Color Urine Clarity Urine pH Ur Specific [place] Urine Protein Urine Ketones Urine Blood Urine Nitrite Urine Bilirubin Urine Urobilinogen Ur Leukocyte Esterase Urine RBC Urine WBC Ur Epithelial Cells Urine Crystals Urine Bacteria Urine Casts Urine Mucus Ur Culture Indicated? Urine Glucose Urine Opiates Screen Urine Methadone Screen Ur Barbiturates Screen Ur Tricyclics Screen Ur Amphetamines Screen U Benzodiazepines Scrn Urine Cocaine Screen Ur THC Screen Ethyl Alcohol < 3.0 COVID-19 PCR Nasopharyn COVID-19 PCR Ref Test Perform Site 06/19/20 06/19/20 06/19/20 13:40 13:40 16:35 WBC RBC Hgb Hct MCV MCH MCHC RDW Plt Count MPV Immature Gran % Neutrophils % Lymphocytes % Monocytes % Eosinophils % Basophils % Nucleated RBC % Absolute Neutrophils Absolute Lymphocytes Absolute Monocytes Absolute Eosinophils Absolute Basophils RBC Morphology Polychromasia Hypochromasia Poikilocytosis Anisocytosis Microcytosis Sodium Potassium Chloride Carbon Dioxide Anion Gap BUN Creatinine Estimated GFR/1.73 m2 Glucose Calcium Magnesium Total Bilirubin AST ALT Alkaline Phosphatase Ammonia Troponin I Total Protein Albumin Urine Color Dark yellow Urine Clarity Cloudy Urine pH 6.0 Ur Specific [place] >= 1.030 H Urine Protein 100 H Urine Ketones 15 H Urine Blood Large H Urine Nitrite Positive H Urine Bilirubin Small H Urine Urobilinogen 1.0 H Ur Leukocyte Esterase Small H Urine RBC >50 H Urine WBC >50 H Ur Epithelial Cells Urine Crystals Urine Bacteria Many Urine Casts Urine Mucus Heavy Ur Culture Indicated? Yes Urine Glucose Negative Urine Opiates Screen Positive A Urine Methadone Screen Negative Ur Barbiturates Screen Negative Ur Tricyclics Screen Negative Ur Amphetamines Screen Negative U Benzodiazepines Scrn Negative Urine Cocaine Screen Negative Ur THC Screen Negative Ethyl Alcohol COVID-19 PCR Negative Nasopharyn COVID-19 PCR Not Applicable Ref Test Perform Site [place] [facility] 06/20/20 06:24 WBC RBC Hgb Hct MCV MCH MCHC RDW Plt Count MPV Immature Gran % Neutrophils % Lymphocytes % Monocytes % Eosinophils % Basophils % Nucleated RBC % Absolute Neutrophils Absolute Lymphocytes Absolute Monocytes Absolute Eosinophils Absolute Basophils RBC Morphology Polychromasia Hypochromasia Poikilocytosis Anisocytosis Microcytosis Sodium 136 Potassium 3.5 Chloride 103 Carbon Dioxide 21.9 Anion Gap 11.1 H BUN 9 D Creatinine 0.56 L D Estimated GFR/1.73 m2 >= 60.00 Glucose 114 H Calcium 7.3 L Magnesium 1.6 L Total Bilirubin AST ALT Alkaline Phosphatase Ammonia Troponin I Total Protein Albumin Urine Color Urine Clarity Urine pH Ur Specific [place] Urine Protein Urine Ketones Urine Blood Urine Nitrite Urine Bilirubin Urine Urobilinogen Ur Leukocyte Esterase Urine RBC Urine WBC Ur Epithelial Cells Urine Crystals Urine Bacteria Urine Casts Urine Mucus Ur Culture Indicated? Urine Glucose Urine Opiates Screen Urine Methadone Screen Ur Barbiturates Screen Ur Tricyclics Screen Ur Amphetamines Screen U Benzodiazepines Scrn Urine Cocaine Screen Ur THC Screen Ethyl Alcohol COVID-19 PCR Nasopharyn COVID-19 PCR Ref Test Perform Site
[2020-06-20] MEDS: cefTRIAXone 1 GM/50 ML BAG IVPB (14:44)
[2020-06-20 15:27] VITALS: BP 150/83; PULSE 87; RESP 18; TEMP 36.7; O2SAT 99
--- NOTE | 2020-06-20 15:48 | CHAPLAIN ---
Reginald was in bed when I visited and brought him a prayer shawl. He responded to some questions, but I couldn't understand everything he said. He told me was from [place] originally, but has been in [place] for 20 years. According to Care Management notes, Reginald lives in [place] near his daughter.
[2020-06-20] MEDS: Normal Saline Flush 10 ML SYR IVP (18:27)
[2020-06-20] MEDS: Pantoprazole 40 MG VIAL IVP (18:27)
--- NOTE | 2020-06-20 18:48 | NUR.NOTE ---
concern that contreras was not draining r/t to low output. Patient bladder scanned for less than 50 cc. nurse driven order for stage 2 0n left buttock and area at risk on right buttock.Nursing Note:
[2020-06-20 19:59] VITALS: BP 138/85; PULSE 83; RESP 18; TEMP 36.5; O2SAT 99
[2020-06-21] MEDS: Dexamethasone 4 MG TAB PO ×4 (01:12→20:06)
[2020-06-21] MEDS: Normal Saline Flush 10 ML SYR IVP (01:13)
[2020-06-21 03:21] VITALS: BP 153/85; PULSE 79; RESP 18; TEMP 36.9; O2SAT 98
[2020-06-21 07:29] VITALS: BP 135/77; PULSE 69; RESP 17; TEMP 36.8; O2SAT 96
[2020-06-21] MEDS: levETIRAcetam 250 MG TAB 500 MG PO ×2 (07:48→20:07)
[2020-06-21] MEDS: POTASSIUM CHLORIDE/0.9% NACL 1,000 ML 100 MEQ IV (08:28)
--- NOTE | 2020-06-21 12:17 | W.NUTCONSULT ---
Date of service: 06/21/20 Time of Service: 12:17 Nutritional Consult ASSESSMENT: 75 year old male admitted with encephalopathy with Lung CA with mets to brain, s/p chemo. Medical chart indicates 60 lbs weight loss in last year. BMI on low end of normal. Met with Reginald today, he reports poor appetite prior to admission. Will need home services once discharged as needs assistance with meal preparation. PO intake poor since admit, taking about 25-50% of needs. Following regular, soft bite meals, providing ensure BID to supplement meals. Reginald may be going home on hospice care. NUTRITIONAL DIAGNOSIS: severe malnutrition in context of chronic illness in view of significant weight loss due to decreased po intake with chemo/uncurable CA INTERVENTION: Regular, soft bite meals ensure BID MONITORING AND EVALUATION: Will monitor po intake, labs and weight and provide meal preferences for optimal intake. Time Spent in Nutritional Counseling and Treatment: 10 min spent face to face
--- NOTE | 2020-06-21 12:33 | PT.INTREAT ---
Date of service: 06/21/20 Time of Service: 12:41 PT Notes Visit Reasons: FAILURE TO THRIVE, STAGE IV SMALL CELL LUNG CA WIT Inpatient Physical Therapy Treatment Note [facility] Date: 06/21/20 PRECAUTIONS: Fall, Activity as Tolerated SUBJECTIVE: Reginald is agreeable to participating in PT. He reports that he is feeling better today compared to yesterday. OBJECTIVE: PAIN: No c/o pain BED MOBILITY/TRANSFERS Supine-sit: Min A Sit-stand: CGA Stand-sit: CGA GAIT Assistive Device: FWW Weight bearing: Full Assist: CGA Distance: 200' Deviation: Unsteady pace, path deviation to L, moderate cueing for FWW mechanics THEREX: Patient was instructed in several LE strengthening exercises in a seated position, as per flow sheet. He requires verbal and visual cueing for proper exercise performance. ASSESSMENT: Patient was able to tolerate a progression in gait distance with FWW and CGA, demonstrating path deviation to L and requiring moderate verbal cueing for FWW mechanics. PLAN: Continue with gait training and strengthening, as tolerated. TREATMENT CODE/TIME: 20 minutes; 78478, [id number]
--- NOTE | 2020-06-21 13:38 | PHA.REVIEW ---
Pharmacy Admission Review - Admission Clinical Review (Last Reviewed 06/19/20 @ 12:56 by Aden Stack MD) Unwitnessed fall (Acute) Encephalopathy acute (Acute) Discharge planning issues (Acute) DVT prophylaxis (Acute) UTI (urinary tract infection) (Acute) Failure to thrive (Acute) bee stings Allergy (Uncoded 06/19/20 12:50) hymenoptera allergenic extract Allergy (Uncoded 06/19/20 12:50) Height 5 ft 5 in Weight 60.6 kg - Renal Dosing Renal Dosing: BUN 9 mg/dL (7-18) D 06/20/20 06:24 Creatinine 0.56 mg/dL (0.70-1.30) L D 06/20/20 06:24 Medications needing adjustments: Reviewed - Anticoagulation Anticoagulation: Hgb 11.2 g/dL (13.5-17.5) L 06/19/20 12:50 Hct 36.1 % (40.0-50.0) L 06/19/20 12:50 Plt Count 10^3/uL (130-400) 06/19/20 12:50 Creatinine 0.56 mg/dL (0.70-1.30) L D 06/20/20 06:24 DVT Prohphylaxis: N/A (contraindicated due to brain mets) Therapeutic Anticoagulation: N/A - Opiate Usage Evaluate Pain Scale/Pains Meds: N/A - Relevant Labs Sodium 136 mmol/L (136-145) 06/20/20 06:24 Potassium 3.5 mmol/L (3.5-5.1) 06/20/20 06:24 Chloride 103 mmol/L (98-107) 06/20/20 06:24 Magnesium 1.6 mg/dL (1.8-2.4) L 06/20/20 06:24 Electrolytes, C-Reactive P, ESR: Reviewed - DM Control DM Control: Glucose 114 mg/dL (74-106) H 06/20/20 06:24 Insulin Dosing: N/A - Heart Failure/NM Heart Failure/NM: Troponin I < 0.05 ng/mL (<0.06) 06/19/20 12:50 EF%, SAROJ's, B-Blockers, Diuretics: Reviewed - BP Control BP Control: Blood Pressure 135/77 Blood Pressure 153/85 If elevated: Reviewed - Qtc Review If Elevated: Reviewed (QTC 483 on admission) - IV to PO Switch IV Medications: Reviewed (po cefpodoxime ordered today, all other orders are PO) - Home Meds Home Med List reviewed: Reviewed Relevent Home Meds Not ordered & why?: aspirin, calcium/d/vitk, HCTZ -- hasn't filled since 10/25/19, losartan -- hasn't filled since 09/22/19, tamsulosin - Current meds Current Medication Order Review: Reviewed (Received 2 days of ceftriaxone for UTI, changed to cefpodoxime today; Levetericetam and decadron started for mets to the brain new on this admission)
--- NOTE | 2020-06-21 13:43 | W.PM.PROGNOT ---
Date of Service Date of service: 06/21/20 Time of Service: 13:43 Assessment and Plan Assessment and plan (1) Lung cancer metastatic to brain: Status: Chronic Assessment and plan: Stage IV small cell lung ca; Diagnosis of brain mets is new on this presentation. THe patient was initiated on keppra and decadron. Palliative care is consulted as well as hospice. PT is consulted for assistive device recommendations. (2) Encephalopathy acute: Status: Acute Assessment and plan: Likely due to above (3) Unwitnessed fall: Status: Acute Assessment and plan: Also, likely due to above. PT consulted. As above (4) UTI (urinary tract infection): Status: Acute Assessment and plan: Associated with indwelling contreras catheter for urinary retention due to BPH; UTI was present on admission. Contreras changed. Initiated on empiric ceftriaxone and IVF. urine growing gram negative rods. awaiting sensitivities. will change to cefpodoxime day 3/7 after 2 days of IV abx, (5) Failure to thrive: Status: Acute Assessment and plan: Consult palliative care and hospice. (6) DVT prophylaxis: Status: Acute Assessment and plan: Chemical DVT ppx is contraindicated in setting of brain mets that were not irradiated. (7) Discharge planning issues: Status: Acute Assessment and plan: DNR/DNI. Palliative care and hospice consulted. discussed with DR Man who is in agreement Subjective Subjective Patient reports: no new complaints Interval history since last seen: patient remains pleasantly confused, medically stable, refused to work with PT this morning, awaiting palliative care consult today. contreras to gravity draining light yellow urine with sediment. Exam Const General: cooperative, comfortable and ill appearing chronically (older than stated age) Nutritional Appearance: thin Orientation: alert, awake and oriented x3 [facility] Head: normal to inspection, normocephalic and atraumatic Mouth: oral mucosae normal Resp Effort & Inspection: normal respiratory effort Auscultation: clear to auscultation bilaterally, diminished lung sounds bilaterally in the lower lung cano, no rhonchi and no wheezes Cardio Rate: regular rate Rhythm: regular rhythm GI Inspection: normal to inspection Palpation: soft Auscultation: normal bowel sounds Skin General skin exam: no rashes or lesions noted Neuro General: patient alert, patient awake, patient oriented x3, moves all extremities and no focal motor deficits Extrem General: normal to inspection and full ROM Objective Last Vital Signs Temp 36.8 C 06/21/20 07:29 Pulse 69 06/21/20 07:29 Resp 17 06/21/20 07:29 BP 135/77 06/21/20 07:29 Pulse Ox 96 06/21/20 07:29
[2020-06-21] MEDS: Cefpodoxime 200 MG TAB PO ×2 (15:03→20:07)
[2020-06-21] MEDS: Acetaminophen 325 MG TAB 500 MG PO ×2 (15:05→20:07)
[2020-06-21 15:35] VITALS: BP 136/80; PULSE 69; RESP 19; TEMP 36.1; O2SAT 99
--- NOTE | 2020-06-21 16:15 | CMPROGNOTE_ITS ---
- If Service Date Differs Date of service: 06/21/20 Time of Service: 16:15 Care Management Progress Note S/O: Reginald was lying in bed when CM met with him. He met with Palliative care today to help determine his goals of care. He did not recall this meeting when CM talked to him, hours later. CM spoke with Kailey, his daughter, who reported that he is agreeable to going to [facility]. She will assist CM with filling out the [facility] application. CM sent a referral to [facility] for review, and p ossible placement tomorrow, if accepted. Reginald's first choice is to go home, but he understands that it is not safe for him now. He will go to [facility] skilled, using his MCR benefit, for strengthening, prior to transitioning to Hospice. CM will continue to follow. A: Reginald is a 75 year old male admitted to [facility] on 06/19/20 with Failure to thrive, stage IV lung cancer. P: Anticipate Reginald will go to a SNF, potentially [facility], for strengthening, prior to transitioning to Hospice care. CM will send in his long goods drier NATHAN application once it is completed by his daughter. He will transport via w/c van, coordinated by BECCA. CM will continue to follow and support discharge planning considerations.
[2020-06-21 19:10] VITALS: BP 120/75; PULSE 76; RESP 17; TEMP 35.9; O2SAT 98
--- NOTE | 2020-06-21 21:32 | W.PALLCONSUL ---
Date of service: 06/21/20 History of Present Illness History of Present Illness Chief Complaint: lung cancer with mets to brain Narrative: I met with Reginald in his room at [facility]. His , Elizabeth, earlier this year, on 04/04/20, at [facility]. He wishes he had kept her at home. He misses his terribly. He has pulled out his IV several times. He doesn't want to pursue aggressive treatment. He tells me he wants to just live what life he has left. He doesn't see the point in prolonging it. He still smokes every now an then--a Burmese cigar, he says. His primary nurse says he is making much more sense today than he has been. He's had no appetite at all. Nothing tastes good. He's exhausted. He doesn't want to continue his cancer treatment. He tells me his lung cancer has spread to his brain and his liver. He tells me he'd been falling at home, prior to this admission. His step daughter, Kailey Garcia, at [phone], helps him make his medical decisions. He wants to be discharged from the hospital. He is willing to go to a SNF. He's originally from [place], [place] but came to [place] to get away from it all. He just wants peace now. He is not in any pain. Consults Consult date: 06/21/20 Requesting physician: Ronna Man Assessment and Plan Assessment and plan (1) Palliative care patient: Status: Chronic Assessment and plan: will continue to follow at SNF (2) Grief: Status: Chronic Assessment and plan: less than 3 months ago still in acute phase of loss regretting that he didn't keep her home he doesn't want to in a hospital, as she did (3) Lung cancer metastatic to brain: Status: Chronic Assessment and plan: followed by Dr Oreilly at [facility] he is saying that he doesn't want to pursue more treatment unsure if Dr Tidwell is aware (4) Encephalopathy acute: Status: Resolved Assessment and plan: apparently, he had been quite confused earlier on this admission primary nurse reports that he cleared up the day of my visit will want to revisit his decisions once at SNF to ensure that he has not changed his mind, (5) Failure to thrive: Status: Chronic Assessment and plan: he doesn't see much point in going on without his not motivated to care for himself will see how he does after acute rehab stay he may very well have to stay there indefinitely (6) Goals of care, counseling/discussion: Status: Acute Assessment and plan: Emphasized his desire to stay comfortable Not be aggressive: DNR/DNI Will ensure he has COLST (7) DNR (do not resuscitate): Status: Acute (8) DNI (do not intubate): Status: Acute (9) Stage II pressure ulcer: Status: Acute Assessment and plan: Nurses informed me of this status at discharge. Review of Systems Constitutional Constitutional: Reports daytime sleepiness, Reports fatigue, Reports frequent falls, Reports lethargy, Reports poor appetite, Reports weakness and Reports weight loss Eyes Eyes: Reports requires corrective lenses ENT Ears, Nose, Mouth, and Throat: Reports dry mouth, Reports hearing loss, Reports disequilibrium and Reports other (no teeth) Cardiovascular Cardiovascular: Reports rapid heart rate and Reports dyspnea on exertion Respiratory Respiratory: Reports cough and Reports dyspnea on exertion Gastrointestinal Gastrointestinal: Reports constipation and Reports early satiety Genitourinary Genitourinary: Reports difficulty urinating Comments: saw Dr Hope, urologist, earlier today Musculoskeletal Musculoskeletal: Reports abnormal gait, Reports atrophy and Reports muscle weakness Neurologic Neurologic: Reports abnormal gait, Reports frequent falls, Reports memory loss, Reports disequilibrium and Reports weakness Comments: nurse reports he had been delirious the day prior to my visit mentation much clearer during my visit Psychiatric Psychiatric: Reports difficulty concentrating, Reports anhedonia and Reports memory loss Endocrine Endocrine: Reports fatigue [facility] Medical History (Updated 06/26/20 @ 21:58 by Carolann Coombs MD) BPH (benign prostatic hyperplasia) DNI (do not intubate) DNR (do not resuscitate) Goals of care, counseling/discussion Grief Hypertension Palliative care patient Small cell carcinoma Stage II pressure ulcer STEMI (ST elevation myocardial infarction) Surgical History H/O heart artery stent Family History (Updated 06/26/20 @ 21:48 by Carolann Coombs MD) Father , age 70 from pancreatic cancer Pancreatic cancer Smoker Mother , unknown COD and age at No problems noted. Other Hypertension Social History (Updated 06/26/20 @ 21:53 by Carolann Coombs MD) Smoking/Tobacco Use Status: Current every day Tobacco: How many years used: 62 Alcohol Intake: never Substance use type: does not use Caregiver/Support person: No Household members: none Number of Children: 3 Communication Needs: Hard of Hearing and Corrective Lenses Education Level: high school Do you need help understanding health information?: Often current occupation: retired [employer] Do you think of yourself as: straight/heterosexual Current gender identity: male What is your relationship status?: How often do you talk on the phone with friends or family?: three or more times per week How often do you get together with friends or relatives?: three or more times per week Panel score (0-1 are the most socially isolated patients): 1 What type of physical activity do you participate in: walking Duration: 15-30 minutes/day Frequency: 3-4 times per week Special emilia needs: No Agree to transfusion: No Seatbelt use: sometimes Fire extinguisher in home: Yes Do you feel safe at home: Yes Do you feel safe in your relationship?: Yes Additional Social history: April 04, 2020. Acutely grieving her loss. Wishes he had kept her home instead of her dying at [facility]. He is tired and not wanting to continue cancer treatment. He doesn't see the point. He plans on going to SNF after this acute admission. He would go on hospice when/if his insurance allows him to. Is a [employer] vet. Was exposed to [place]. May be linked to dx. Exam Const General: cooperative, comfortable and ill appearing chronically (older than stated age) Nutritional Appearance: thin Orientation: alert, awake and oriented x3 [facility] Head: normal to inspection, normocephalic and atraumatic Mouth: oral mucosae normal Eyes Conjunctivae: conjunctivae normal Sclera: sclerae normal Neck Neck: no lymphadenopathy Resp Effort & Inspection: normal respiratory effort Auscultation: clear to auscultation bilaterally, diminished lung sounds bilaterally in the lower lung cano, no rhonchi and no wheezes Cardio Rate: regular rate Rhythm: regular rhythm GI Inspection: normal to inspection Palpation: soft Auscultation: normal bowel sounds Skin General skin exam: no rashes or lesions noted Neuro General: patient alert, patient awake, patient oriented x3, moves all extremities and no focal motor deficits Extrem General: normal to inspection and full ROM Psych Speech and Movement: speech and movement normal Mood: congruent mood Affect: normal affect Results Last Vital Signs Temp 96.8 F L 06/22/20 07:32 Pulse 83 06/22/20 07:32 Resp 17 06/22/20 07:32 BP 126/83 06/22/20 07:32 Pulse Ox 100 06/22/20 07:32 Labs Result diagrams: 06/19/20 12:50 06/20/20 06:24
[2020-06-21 23:18] VITALS: BP 132/84; PULSE 72; RESP 20; TEMP 36.4; O2SAT 98
[2020-06-22] MEDS: Dexamethasone 4 MG TAB PO ×2 (01:31→07:12)
[2020-06-22] MEDS: levETIRAcetam 250 MG TAB 500 MG PO (07:12)
[2020-06-22] MEDS: Acetaminophen 325 MG TAB 500 MG PO (07:12)
[2020-06-22 07:32] VITALS: BP 126/83; PULSE 83; RESP 17; TEMP 36; O2SAT 100
[2020-06-22] MEDS: Cefpodoxime 200 MG TAB PO (08:32)
--- NOTE | 2020-06-22 10:30 | DSE_ITS ---
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 Hospital Course: Mr Schafer is a 75 year old male with PMHx of Stage IV small cell lung cancer, s/p chemo, but felt to be incurable at this time, as well as h/o CAD, hypertension, hyperlipidemia, and urinary retention s/p indwelling contreras catheter, who was brought in to [facility] ED by ambulance after being found down by his daughter. He was unable to provide a meaningful history, his ED workup revealed multiple brain metastases and a UTI. The patient's case was discussed with Dr Azar of hem/onc at [facility] who recommended starting the patient on prophylactic keppra and decadron. While hospitalized he remained medically stable, seizure-free, and thought to have returned to his baseline. He did have some periods of confusion but was reoriented and with no behavioral disturbances. His urine grew E. coli and Enterobacter and his ceftriaxone was narrowed to Cefpodoxime for which she will complete a one-week course. He has been eating and drinking some but appetite lacking, requiring assistance and encouragement. Physical therapy has been fol lowing. He did undergo a palliative care consult with Dr. Carolann Coombs who will follow him outpatient. Case management has been following and plan [facility] to maximize his recovery from this urinary tract infection and ambulatory dysfunction. He ultimately may require long-term care placement. His routine COVID screening has returned negative and he is being transported to [facility] and rehab as arranged. Discharge plan discussed with Dr. Man who is in agreement Home Meds and New Rx's Prescriptions: New cefpodoxime 200 mg Tablet 200 mg PO BID Qty: 10 RF: 0 levetiracetam [Keppra] 250 mg Tablet 500 mg PO BID Qty: 60 RF: 0 acetaminophen 500 mg capsule 500 mg PO QID Qty: 60 RF: 0 docusate sodium [Colace] 100 mg Capsule 100 mg PO TID PRN PRNQty: 0 RF: 0 polyethylene glycol 3350 17 gram Powder In Packet 17 g PO DAILY PRN PRN (Reason: Constipation) Qty: 0 RF: 0 Changed dexamethasone 4 mg tablet 4 mg PO Q6H Qty: 0 RF: 0 Discontinued tamsulosin [Flomax] 0.4 mg capsule 0.8 mg PO DAILY Qty: 180 RF: 4 aspirin [Mary Kay Chewable Aspirin] 81 mg tablet,chewable 81 mg PO DAILY RF: 0 hydrochlorothiazide 50 mg tablet 25 mg PO DAILY RF: 0 losartan 100 mg tablet 50 mg PO DAILY RF: 0 cephalexin [Keflex] 500 mg capsule 500 mg PO TID Qty: 21 RF: 0 oxycodone 5 mg tablet 5 mg PO Q8H PRNRF: 0 prochlorperazine maleate [Compazine] 10 mg tablet 10 mg PO Q8H PRNRF: 0 calcium carb-vitamin D3-vit K2 600 mg-1,000 unit-90 mcg tablet PO RF: 0 Centrum Silver 400-250 mcg Tablet,Chewable 1 tab PO DAILY RF: 0 Discharge Instructions Instructions: Failure to Thrive (DC), Lung Cancer (DC) Stand Alone Forms: Nursing Discharge Form Referrals: Carolann Coombs MD [ [facility] STAFF PHYSICIAN] - Activity:: Activity as Tolerated Equipment/Supplies:: No Equipment Needed Diet:: As Tolerated Discharge Orders Discharge Orders: Discharge Order (Routine); Ordered 06/22/20 Ordered By: Bobbi Arizmendi Discharge Data Discharge Date/Time-TO BE ENTERED AT DEPARTURE: 06/22/20 11:36 DS: Summary Status at Discharge Functional status at discharge: uses cane/walker Overall status at discharge: patient is not back to baseline Mental Status: other (Some confusion) Speech and Movement: speech and movement normal Mood: congruent mood Affect: normal affect Exam Const General: cooperative, comfortable and ill appearing chronically (older than stated age) Nutritional Appearance: thin Orientation: alert, awake and oriented x3 HENMT Head: normal to inspection, normocephalic and atraumatic Mouth: oral mucosae normal Resp Effort & Inspection: normal respiratory effort Auscultation: clear to auscultation bilaterally, diminished lung sounds bilaterally in the lower lung cano, no rhonchi and no wheezes Cardio Rate: regular rate Rhythm: regular rhythm GI Inspection: normal to inspection Palpation: soft Auscultation: normal bowel sounds Skin General skin exam: no rashes or lesions noted Neuro General: patient alert, patient awake, patient oriented x3, moves all extremities and no focal motor deficits Extrem General: normal to inspection and full ROM Psych Speech and Movement: speech and movement normal Mood: congruent mood Affect: normal affect DS: Data Vitals/I&O Vitals and I&O: Vital Signs Temperature 36.0 C L 06/22/20 07:32 Temperature Source Tympanic 06/22/20 07:32 Pulse 83 06/22/20 07:32 Pulse Rhythm Regular 06/22/20 05:26 Pulse 94 H 06/19/20 16:30 Respiratory Rate 17 06/22/20 07:32 Respiratory Effort Non-Labored 06/22/20 05:26 Respiratory Depth Normal 06/22/20 05:26 Respiratory Pattern Normal 06/22/20 05:26 Blood Pressure 126/83 06/22/20 07:32 Blood Pressure Mean 93 06/19/20 14:01 Blood Pressure Position Sitting 06/19/20 12:37 Pulse Oximetry 100 06/22/20 07:32 Oxygen Delivery Method Room Air 06/22/20 07:32 Oxygen Flow Rate 0 06/22/20 07:32 Pain Level 0 06/22/20 07:32 Intake & Output 06/21/20 06/21/20 06/22/20 11:59 23:59 11:59 Intake Total 1420 / 2498.333 1078.333 / 2498.333 220 / 220 Output Total 1050 / 1825 775 / 1825 300 / 300 Balance 370 / 673.333 303.333 / 673.333 -80 / -80 Intake: IV 1000 / 1478.333 478.333 / 1478.333 Oral 420 / 1020 600 / 1020 220 / 220 Output: Urine 750 / 1525 775 / 1525 300 / 300 Stool 300 / 300 Other: Urine Color Yellow Yellow Yellow Urine Appearance Sediment Clear Clear Stool Size Moderate Small Small Stool Characteristics Liquid Liquid Soft Brown Brown Liquid Black Data Completed and Pending Labs on day of discharge: Labs from last 24 hours 06/19/20 13:40 Urine Color Dark yellow Urine Clarity Cloudy Urine pH 6.0 Ur Specific Parsons >= 1.030 H Urine Protein 100 H Urine Ketones 15 H Urine Blood Large H Urine Nitrite Positive H Urine Bilirubin Small H Urine Urobilinogen 1.0 H Ur Leukocyte Esterase Small H Urine RBC >50 H Urine WBC >50 H Ur Epithelial Cells Urine Crystals Urine Bacteria Many Urine Casts Urine Mucus Heavy Ur Culture Indicated? Yes Urine Glucose Negative [facility] Medical History (Updated 06/19/20 @ 17:44 by Ronna Man MD) BPH (benign prostatic hyperplasia) Hypertension Small cell carcinoma STEMI (ST elevation myocardial infarction) Surgical History H/O heart artery stent Family History Other Hypertension Social History Smoking/Tobacco Use Status: Current every day Alcohol Intake: never Substance use type: does not use What type of physical activity do you participate in: walking Duration: 45-60 minutes/day Frequency: daily Do you feel safe at home: Yes Do you feel safe in your relationship?: Yes Documented by User: Ronna Man MD 06/22/20 18:10 Discharge Plan Disposition Patient Disposition: SNF (LEVEL 1) [facility] Condition: Stable Discharge Details Reason For Visit: FAILURE TO THRIVE, STAGE IV SMALL CELL LUNG CA WIT Admit Date/Time: 06/19/20 15:19 Admit Provider: Ronna Man Attending Provider: Ronna Man Primary Care Provider: Reginald Roca [facility] Course Hospital Course: Mr Schafer is a 75 year old male with PMHx of Stage IV small cell lung cancer, s/p chemo, but felt to be incurable at this time, as well as h/o CAD, hypertension, hyperlipidemia, and urinary retention s/p indwelling contreras catheter, who was brought in to [facility] ED by ambulance after being found down by his daughter. He was unable to provide a meaningful history, his ED workup revealed multiple brain metastases and a UTI. The patient's case was discussed with Dr Azar of hem/onc at [facility] who recommended starting the patient on prophylactic keppra and decadron. While hospitalized he remained medically stable, seizure-free, and thought to have returned to his baseline. He did have some periods of confusion but was reoriented and with no behavioral disturbances. His urine grew E. coli and Enterobacter and his ceftriaxone was narrowed to Cefpodoxime for which she will complete a one-week course. He has been eating and drinking some but appetite lacking, requiring assistance and encouragement. Physical therapy has been following. He did undergo a palliative care consult with Dr. Carolann Coombs who will follow him outpatient. Case management has been following and plan is [facility] to maximize his recovery from this urinary tract infection and ambulatory dysfunction. He ultimately may require long-term care placement. His routine COVID screening has returned negative and he is being transported to [facility] and rehab as arranged. Discharge plan discussed with Dr. Man who is in agreement Home Meds and New Rx's Prescriptions: New cefpodoxime 200 mg Tablet 200 mg PO BID Qty: 10 RF: 0 levetiracetam [Keppra] 250 mg Tablet 500 mg PO BID Qty: 60 RF: 0 acetaminophen 500 mg capsule 500 mg PO QID Qty: 60 RF: 0 docusate sodium [Colace] 100 mg Capsule 100 mg PO TID PRN PRNQty: 0 RF: 0 polyethylene glycol 3350 17 gram Powder In Packet 17 g PO DAILY PRN PRN (Reason: Constipation) Qty: 0 RF: 0 Changed dexamethasone 4 mg tablet 4 mg PO Q6H Qty: 0 RF: 0 Discontinued tamsulosin [Flomax] 0.4 mg capsule 0.8 mg PO DAILY Qty: 180 RF: 4 aspirin [Mary Kay Chewable Aspirin] 81 mg tablet,chewable 81 mg PO DAILY RF: 0 hydrochlorothiazide 50 mg tablet 25 mg PO DAILY RF: 0 losartan 100 mg tablet 50 mg PO DAILY RF: 0 cephalexin [Keflex] 500 mg capsule 500 mg PO TID Qty: 21 RF: 0 oxycodone 5 mg tablet 5 mg PO Q8H PRNRF: 0 prochlorperazine maleate [Compazine] 10 mg tablet 10 mg PO Q8H PRNRF: 0 calcium carb-vitamin D3-vit K2 600 mg-1,000 unit-90 mcg tablet PO RF: 0 Centrum Silver 400-250 mcg Tablet,Chewable 1 tab PO DAILY RF: 0 Discharge Instructions Instructions: Failure to Thrive (DC), Lung Cancer (DC) Stand Alone Forms: Nursing Discharge Form Referrals: Carolann Coombs MD [ [facility] STAFF PHYSICIAN] - Activity:: Activity as Tolerated Equipment/Supplies:: No Equipment Needed Diet:: As Tolerated Discharge Orders Discharge Orders: Discharge Order (Routine); Ordered 06/22/20 Ordered By: Bobbi Arizmendi Discharge Data Discharge Date/Time-TO BE ENTERED AT DEPARTURE: 06/22/20 11:36 [facility] Medical History (Updated 06/19/20 @ 17:44 by Ronna Man MD) BPH (benign prostatic hyperplasia) Hypertension Small cell carcinoma STEMI (ST elevation myocardial infarction) Surgical History H/O heart artery stent Family History Other Hypertension Social History Smoking/Tobacco Use Status: Current every day Alcohol Intake: never Substance use type: does not use What type of physical activity do you participate in: walking Duration: 45-60 minutes/day Frequency: daily Do you feel safe at home: Yes Do you feel safe in your relationship?: Yes
--- NOTE | 2020-06-22 16:42 | PDOC.CMDIS ---
- If Service Date Differs Date of service: 06/22/20 Time of Service: 16:42 LACE Index Scoring Tool - Questions: Length of Stay (in days): 4 - 6 Acuity (Admit via E.D.?): Yes Comorbidities: Any Tumor, Metastatic Solid Tumor E.D. Visits: 2 - Answers: Total Score: 14 Risk of Readmission: High Risk Care Management Discharge Reason for Hospitalization: Failure to thrive, Stage IV small cell lung CA Discharge Plan: Reginald will transfer to [facility] for strengthening prior to returning home vs remaining at [facility] for end of life care. BECCA completed the longterm [facility] application with Reginald and faxed it to [facility], as well as Nicole at [facility], who requested a copy. Reginald was agreeable to going to [facility]. He will transport via w/c van, coordinated by BECCA. Patient/Family Education Needs: Review discharge instructions regarding activity levels and medications, discussion of self care needs and goals of care. Services Needed at Discharge: Residential Facility ([facility]), Transportation (w/c van)
--- NOTE | 2020-06-25 12:31 | INDS_ITS ---
Date of service: 06/25/20 Time of Service: 12:32 PT Notes Visit Reasons: FAILURE TO THRIVE, STAGE IV SMALL CELL LUNG CA WIT Physical Therapy Inpatient Discharge Summary Date: 06/25/2020 Date of service: 06/20/2020 through 06/21/2020 This is a clinical summary of care provided on the duration of dates listed above. No charge was made in the completion of this documentation. Referring Doctor: Ronna Man MD PT Orders: PT CONSULT: Patient with stage IV cancer with multiple mets; evaluate for assistive device Precautions: Fall. Standard. Activity as tolerated. Patient Profile/Admitting Diagnosis: Reginald is a 75-year-old male who presented to the ED on 06/19/2020 with chief complaints of weakness, lightheadedness, nausea, and poor oral intake. He was found down on the floor in his home, confused. He is diagnosed with a lung carcinoma with metastasis to the brain, encephalopathy, and unwitnessed fall. PMHX: Medical History (Updated 06/19/20 @ 17:44 by Ronna Man MD) BPH (benign prostatic hyperplasia) Hypertension Small cell carcinoma STEMI (ST elevation myocardial infarction) Surgical History H/O heart artery stent Social History/Home Situation: Reginald lives alone in a private home. He has a daughter who lives nearby. He is independent with all aspects of ADLs without the need for an assistive ambulatory device nor do movement prior to admission. Equipment Owned/DME: None Subjective: NT. See most recent SPRINKLER HELPER notes. Objective: General Observation: NT. See most recent SPRINKLER HELPER notes. Mental Status: NT. See most recent SPRINKLER HELPER notes. Pain: NT. See most recent SPRINKLER HELPER notes. ROM: Right Upper Extremity: Shoulder Flexion allows only about 90 degrees. Shoulder abduction allows only about 90 degrees. Elbow flexion WFL. Wrist flexion WFL. Opening and closing of hand WFL. Left Upper Extremity: Shoulder Flexion allows only about 90 degrees. Shoulder abduction allows only about 90 degrees. Elbow flexion WFL. Wrist flexion WFL. Opening and closing of hand WFL. Right Lower Extremity: Hip flexion allows only up to 10 degrees (beyond 90 degrees) while seated at edge of bed. Hip abduction WFL. Knee flexion WFL. Knee extension -30 degrees. Ankle dorsiflexion WFL. Ankle plantarflexion WFL. Left Lower Extremity: Hip flexion allows only up to 10 degrees (beyond 90 degrees) while seated at edge of bed. Hip abduction WFL. Knee flexion WFL. Knee extension -30 degrees. Ankle dorsiflexion WFL. Ankle plantarflexion WFL. Strength: Right Upper Extremity: Shoulder flexors 3-/5. Shoulder abductors 3-/5. Elbow flexors 3+/5. Elbow extensors 3+/5. Electrification Adviser strong. Left Upper Extremity: Shoulder flexors 3-/5. Shoulder abductors 3-/5. Elbow flexors 3+/5. Elbow extensors 3+/5. Electrification Adviser strong. Right Lower Extremity: Hip flexors 3-/5. Hip abductors 3+/5. Knee flexors 3+/5. Knee extensors 3-/5. Ankle dorsiflexors 3+/5. Ankle plantarflexors 3+/5. Left Lower Extremity: Hip flexors 3-/5. Hip abductors 3+/5. Knee flexors 3+/5. Knee extensors 3-/5. Ankle dorsiflexors 3+/5. Ankle plantarflexors 3+/5. Sensation: Intact as to pain and pressure on bilateral lower extremities. Bed Mobility/Transfers: Rolling minimal assist Supine to sit minimal assist Sit to supine minimal assist Sit to stand contact-guard assist Stand to sit contact-guard assist Bed to chair contact-guard assist Chair to bed contact-guard assist Gait: 200 feet using front wheeled walker with full weightbearing requiring contact-guard assist moderate verbal cues given for walker mechanics. Unsteady pace with path deviation to the left. Balance: Static Sitting: Normal Dynamic Sitting: Good Static Standing: Poor Dynamic Standing: Poor Assessment: Reginald continues to demonstrate significant functional mobility decline assistance with all bed mobility activities. Due to fatigue and lack of motivation he refused all out of bed activities. Recommend doing all transfers with assist of 2 or mechanical lift as appropriate. Will determine appropriate visit frequency once mobility level is established for now patient will be seen once a day for the rest of the week. Patient continues to present with clinical signs and symptoms consistent with current/admitting diagnoses that have resulted to mobility limitations, gait instability, generalized weakness, and impairment of motor control as demonstrated by the following impairment level findings: 1. Decreased strength to B UE/LE major muscle groups 2. Impaired sitting/standing balance 3. Impaired activity tolerance 4. Limitation of joint range of motion in B UE/LE Impairments are continuing to contribute to the following functional limitations: 1. Dependent bed mobility skills 2. Increased dependence with transfers 3. Inability to safely ambulate without assistive device and physical assistance 4. Increase completion time for mobility ADL performance 5. Increased fall risk 6. Inability to negotiate steps alone safely Goals: Goals X1 week 1. Supine-Sit supervision NOT MET 2. Sit-Supine supervision NOT MET 3. Sit-Stand supervision NOT MET 4. Stand-Sit supervision NOT MET 5. Bed-Chair supervision NOT MET 6. Chair-Bed supervision NOT MET 7. Contact-guard assist gait on level surface with use of least restrictive device for at least 300 feet without report of pain nor dyspnea NOT MET 8. Contact-guard assist stair negotiati on while holding onto bilateral rails for at least 10 steps without report of pain nor dyspnea NOT MET 10. Good static and dynamic standing balance/tolerance NOT MET DISCHARGE RECOMMENDATIONS: Patient will benefit from detention facility placement for continued skilled physical therapy services in order to progress mobility level, strength, and balance. TREATMENT CODE/TIME: NC. Thank you for the opportunity to participate in the care of this patient. Morena Marmolejo PT, DPT, CLT [facility] [place], [place]
== END 2020-06-22 11:36 | disposition skilled nursing facility (03) | DRG 55 ==
LOC: ER 16:43 → MS 16:47
PROVIDERS: Admitting Provider Internal Medicine; Emergency Provider Emergency Medicine; PCP Family Medicine; Visit Provider Internal Medicine
DX: C79.31 Secondary malignant neoplasm of brain; N39.0 Urinary tract infection, site not specified; C34.11 Malignant neoplasm of upper lobe, right bronchus or lung; G13.1 Other systemic atrophy primarily affecting central nervous system in neoplastic disease; R62.7 Adult failure to thrive; Z68.22 Body mass index [BMI] 22.0-22.9, adult; I25.10 Atherosclerotic heart disease of native coronary artery without angina pectoris; I10 Essential (primary) hypertension; E78.5 Hyperlipidemia, unspecified; R33.9 Retention of urine, unspecified; B96.89 Other specified bacterial agents as the cause of diseases classified elsewhere; B96.20 Unspecified Escherichia coli [E. coli] as the cause of diseases classified elsewhere; Z11.59 Encounter for screening for other viral diseases; R29.6 Repeated falls; W19.XXXA Unspecified fall, initial encounter; Z66 Do not resuscitate; E86.0 Dehydration; I25.2 Old myocardial infarction; N40.0 Benign prostatic hyperplasia without lower urinary tract symptoms; F17.210 Nicotine dependence, cigarettes, uncomplicated; R63.4 Abnormal weight loss
CPT/HCPCS: 36415; 51702; 80048; 80053; 80307; 87077; 93005; 96361; 96365; 96368; 97162; 97530; 99223; 99233; 99238; 99255; 99285; U0003; 70450; 71046; 80320; 81003; 81015; 82140; 83735; 84484; 85025; 87086; 87186; 93010; J0696; J1100; J1953; J8540